=== PATIENT | female | born 1945 | race Caucasian/White ===

== ENCOUNTER 2020-02-27 11:51 | Emergency (ER) | payer OTHER, MEDICARE, SELFPAY ==
--- NOTE | ~2020-02-27 | XR_ITS ---
EXAMINATION: [id number] INDICATION: Right-sided chest pain after fall TECHNIQUE: A frontal view of the chest and 3 views of the right ribs were obtained. COMPARISON: None FINDINGS: A calcified nodule of the right lung bases consistent with old granulomatous disease. The l ungs are free of acute opacities. There is no pleural effusion or pneumothorax. The cardiomediastinal silhouette is normal. No displaced rib fracture is identified. Cholecystectomy clips are noted. IMPRESSION: 1. No acute cardiopulmonary abnormality or evidence of displaced rib fracture. Reviewed, dictated and finalized at location A.
[2020-02-27 12:05] VITALS: BP 142/59; PULSE 101; RESP 16; TEMP 36.8; O2SAT 98
--- NOTE | 2020-02-27 12:17 | ED.BACK ---
HPI - Back Pain/Injury General Chief Complaint: Back Pain/Injury Stated Complaint: back pain fell Time Seen by Provider: 02/27/20 12:10 Source: patient Mode of arrival: ambulatory Limitations: no limitations History of Present Illness HPI Narrative: Marilynn Barker is a 74 yo female with a PMH of diabetes and high blood pressure came to express care after a fall in [employer] parking lot where she landed on her right thoracic back and hip. Able to walk on right leg but complaining of pain on inspiration on the right posterior thorax. No real pinpoint tenderness; denies hitting head, denies nausea vomiting, visual change Related Data Home Medications Medication Instructions Recorded Confirmed amlodipine [Norvasc] 10 mg PO DAILY 02/27/20 02/27/20 aspirin [Aspirin Low Dose] 81 mg PO DAILY 02/27/20 02/27/20 canagliflozin [Invokana] 300 mg PO DAILY 02/27/20 02/27/20 glipizide 10 mg PO DAILY 02/27/20 02/27/20 hydralazine 100 mg PO DAILY 02/27/20 02/27/20 indapamide 2.5 mg PO DAILY 02/27/20 02/27/20 levothyroxine 75 mcg PO DAILY 02/27/20 02/27/20 lovastatin 10 mg PO DAILY 02/27/20 02/27/20 metformin [Glucophage XR] 500 mg PO DAILY 02/27/20 02/27/20 potassium chloride [Klor-Con M20] 20 meq PO DAILY 02/27/20 02/27/20 Allergies Allergy/AdvReac Type Severity Reaction Status Date / Time Penicillins Allergy Rash Verified 02/27/20 12:15 Review of Systems Review of Systems: Narrative: CONSTITUTIONAL: Denies fever, chills, sweats. EYES: Denies visual changes, redness, discharge. ENT: Denies rhinorrhea, congestion, sore throat, otalgia. CARDIOVASCULAR: Denies chest pain, palpitations, edema. RESPIRATORY: Denies dyspnea, wheezing, cough GASTROINTESTINAL: Denies abdominal pain, nausea, vomiting, diarrhea. GENITOURINARY: Denies dysuria, hematuria, abnormal discharge SKIN: Denies rash or itching. NEUROLOGIC: Denies numbness, or focal weakness. PSYCHIATRIC: Denies anxiety or depression. Perithoracic area on back is painful on inspiration PMFSH Past Medical History Medical History Diabetes Hypertension Family History Family History Other Alzheimer disease Brain cancer Social History Social History (Updated 02/27/20 @ 12:25 by Carole Da Silva CNP) Smoking status: Former smoker Alcohol intake: current Gender identity (if verbalized by the patient): Female Comments At time of signature, I agree with nursing past medical, surgical, social and family history. There is no relevant family history pertinent to the presenting complaint. Exam Narrative: Exam Narrative: GENERAL: This is a well-nourished, well-developed patient, in mild distress. HEAD: normocephalic, traumatic. EYES: Sclera clear/white. Vision is grossly intact. EARS: External ears normal, auditory canals clear and without drainage, TMs normal without perforation. Hearing grossly intact. NOSE: External nose normal without nasal discharge, nares without redness, no rhinorrhea. THROAT: Mucous membranes moist, NECK: Neck supple, non-tender CARDIOVASCULAR: Regular rate and rhythm without murmurs, gallops, or rubs. RESPIRATORY: Clear to auscultation. Breath sounds equal bilaterally. No wheezes, rales, or rhonchi. GASTROINTESTINAL: Abdomen soft, SKIN: warm, intact with no suspicious lesions or rash, good texture and turgor. NEURO: awake, alert, and oriented to person, place and time. There were no obvious focal neurologic abnormalities. Steady gait EXTREMITIES: Normal range of motion. BACK: Right thoracic tender without deformity Course Course Emergency Course: X-ray chest-results showed no acute cardiopulmonary abnormality or evidence of displaced rib fracture Walking without difficulty so deferred x-ray of right hip Patient started on limited number of Tylenol 3 and baclofen 5 mg 3 times daily as needed as needed Follow-up with PCP Vital Signs
== END 2020-02-27 13:05 | disposition home or self-care (01) ==
PROVIDERS: Emergency Provider Nurse Practitioner; PCP Internal Medicine
DX: S70.01XA Contusion of right hip, initial encounter (principal); W19.XXXA Unspecified fall, initial encounter; Z87.891 Personal history of nicotine dependence; E11.9 Type 2 diabetes mellitus without complications; I10 Essential (primary) hypertension
CPT/HCPCS: 71101; 99213; G0463

== ENCOUNTER 2022-06-23 08:17 | Outpatient (RCR) | payer MEDICARE, SELFPAY ==
--- NOTE | 2022-06-23 09:42 | PTOPEVAL1 ---
Assessment and note entered by Lindsay Zhao PT Evaluation Information Assessment Status Evaluation Diagnosis lymphedema Subjective Information pt is to have surgery July 14--R breast lumpectomy and axillary dissection; Reported Pain Level Pain Score Self Report No pain reported Assessment PT Clinical Summary Marilynn has the diagnosis of lymphedema; she is to have R breast lumpectomy and axillary dissection on July 14 and education was provided pre-op. Discussion and education to pt on: basic lymphedema, skin precautions, monitor for swelling ; sleep positions, position of UE--support with pillow; issued handouts for lymphedema and UE precautions; Home exercise program: shoulder flexion and abduction < 90', elbow flexion/extension, wrist flexion/extension, open/close fingers and posterior shoulder circles--pt performed 10 reps without any issues; instructed to perform 2x/day 3 reps of shoulder and 5-10 reps of others; performed deep breathing, with abdominal movement, not chest motion- physical cues with her hand on her stomach and chest--to perform 5x at home also; post op--decrease use of R shoulder, no lifting and any other precautions per her dr post op; use of ice PRN; after incision is healed, can do gentle massage over breast or shoulder; post op- if any issues with shoulder or swelling, she would require a new order from her dr to continue therapy; pt asked good questions and voiced understanding of the education. Issued PT name and number for her to call if any additional questions. Pt is on HOLD until post op and additional orders received Plan of Care PT Services Indicated Yes Treatment Frequency and pt is on HOLD until post op orders received to Duration continue PT treatment These treatments will address the objective and functional deficits as defined above. The patient will be advanced safely and appropriately in order for the patient to progress towards his/her prior level of function. Additional exercises will be introduced and as well as a comprehensive home exercise program upon discharge, if needed, ?to ensure carryover of functional gains achieved in the clinic. This treatment plan has been reviewed and agreement upon by the patient.
--- NOTE | 2022-09-02 15:07 | PCPTNOTE ---
PHYSICAL THERAPY DISCHARGE 09-02-22 Attending Provider: Laith Ortiz MD Patient:Marilynn Barker Date of :1945 Mrs. Barker had the PT evaluation on June 23, prior to surgery for education. Post op, she did not return for any additional therapy. Therefore, she will be discharged at this time. Thank you for referring this patient to [facility].
== END 2022-09-06 11:53 | disposition home or self-care (01) ==
LOC: ANHPT 08:17
PROVIDERS: PCP Internal Medicine
DX: C50.211 Malignant neoplasm of upper-inner quadrant of right female breast (principal); Z17.0 Estrogen receptor positive status [ER+]
CPT/HCPCS: 97161

== ENCOUNTER 2022-12-01 11:24 | Outpatient (CLI) | payer MEDICARE, SELFPAY ==
[2022-12-01 11:36] LABS: Basophils Percent Auto 0.5 % (0.2-1.2); Eosinophils Absolute Auto 0.2 K/mm3 (0-0.3); Eosinophils Percent Auto 1.8 % (0-4.4); Hematocrit 38.7 % (37.0-47.0); Hemoglobin 12.5 g/dL (12.0-15.0); Immature Granulocyte Absolute 0.03 K/mm3 (0.00-0.031); Immature Granulocyte Percent A 0.4 % (0-0.5); Lymphocytes Absolute Auto 1.39 K/mm3 (0.9-3.2); Lymphocytes Percent Auto 16.8 % (18.3-44.2); Mean Corpuscular HGB Conc 32.3 g/dl (32-36); Mean Corpuscular Volume 89.8 fl (80-100); Mean Platelet Volume 10.3 fl (7.4-10.4); Monocytes Absolute Auto 0.6 K/mm3 (0.1-0.6); Monocytes Percent Auto 7.1 % (2.6-8.5); Neutrophils Absolute Auto 6.1 K/mm3 (1.3-6.7); Neutrophils Percent Auto 73.4 % (45.5-73.1); Platelet Count Result 299 k/mm3 (150-375); Red Blood Count 4.31 M/mm3 (4.2-5.4); Red Cell Distribution Width 14.1 % (11.5-14.5); White Blood Count 8.3 K/mm3 (4.5-10.0)
[2022-12-01 11:54] LABS: Alanine Aminotransferase 16 U/L (6-35); Albumin Level 4.3 g/dL (3.5-5.1); Alkaline Phosphatase 51 U/L (38-126); Anion Gap 7 mmol/L (8-16); Aspartate Amino Transferase 31 U/L (14-36); Bilirubin,Total 1.6 mg/dL (0.2-1.3); Blood Urea Nitrogen 17 mg/dL (7-17); Calcium 9.9 mg/dL (8.4-10.2); Carbon Dioxide 33 mmol/L (22-30); Chloride 102 mmol/L (98-107); Estimated Glomerular Filt Rate > 60; Glucose 157 mg/dL (65-110); Potassium 3.5 mmol/L (3.4-5.0); Sodium 142 mmol/L (137-145)
[2022-12-06 12:15] LABS: CA 15-3 <5 U/mL (<32)
== END 2022-12-01 11:25 | disposition home or self-care (01) ==
LOC: ANHLAB 11:25
PROVIDERS: PCP Internal Medicine; Visit Provider Internal Medicine Hematology & Oncology
DX: C50.911 Malignant neoplasm of unspecified site of right female breast (principal); Z17.0 Estrogen receptor positive status [ER+]
CPT/HCPCS: 36415; 80053; 85025; 86300

== ENCOUNTER 2023-03-21 11:11 | Outpatient (CLI) | payer MEDICARE, SELFPAY ==
[2023-03-21 11:26] LABS: Basophils Absolute Auto 0.1 K/mm3 (0.0-0.1); Basophils Percent Auto 0.6 % (0.2-1.2); Eosinophils Absolute Auto 0.1 K/mm3 (0-0.3); Eosinophils Percent Auto 0.8 % (0-4.4); Hematocrit 37.5 % (37.0-47.0); Immature Granulocyte Absolute 0.05 K/mm3 (0.00-0.031); Immature Granulocyte Percent A 0.6 % (0-0.5); Lymphocytes Percent Auto 18.2 % (18.3-44.2); Mean Corpuscular Hemoglobin 29.4 pg (26-34); Mean Corpuscular Volume 91.9 fl (80-100); Mean Platelet Volume 10.3 fl (7.4-10.4); Monocytes Absolute Auto 0.8 K/mm3 (0.1-0.6); Monocytes Percent Auto 8.6 % (2.6-8.5); Neutrophils Absolute Auto 6.3 K/mm3 (1.3-6.7); Neutrophils Percent Auto 71.2 % (45.5-73.1); Platelet Count Result 293 k/mm3 (150-375); Red Blood Count 4.08 M/mm3 (4.2-5.4); Red Cell Distribution Width 13.2 % (11.5-14.5); White Blood Count 8.8 K/mm3 (4.5-10.0)
[2023-03-21 20:45] LABS: Alanine Aminotransferase 20 U/L (6-35); Albumin Level 4.2 g/dL (3.5-5.1); Alkaline Phosphatase 45 U/L (38-126); Anion Gap 8 mmol/L (8-16); Aspartate Amino Transferase 21 U/L (14-36); Blood Urea Nitrogen 16 mg/dL (7-17); Calcium 9.9 mg/dL (8.4-10.2); Carbon Dioxide 32 mmol/L (22-30); Chloride 99 mmol/L (98-107); Estimated Glomerular Filt Rate > 60; Glucose 105 mg/dL (65-110); Potassium 3.3 mmol/L (3.4-5.0); Sodium 139 mmol/L (137-145)
[2023-03-24 06:07] LABS: CA 15-3 6 U/mL (<32)
== END 2023-03-21 11:12 | disposition home or self-care (01) ==
LOC: ANHLAB 11:13
PROVIDERS: PCP Internal Medicine; Visit Provider Internal Medicine Hematology & Oncology
DX: C50.911 Malignant neoplasm of unspecified site of right female breast (principal); Z17.0 Estrogen receptor positive status [ER+]
CPT/HCPCS: 36415; 80053; 85025; 86300

== ENCOUNTER 2023-06-23 12:01 | Outpatient (CLI) | payer MEDICARE, SELFPAY ==
[2023-06-23 12:16] LABS: Basophils Percent Auto 0.5 % (0.2-1.2); Eosinophils Absolute Auto 0.1 K/mm3 (0-0.3); Eosinophils Percent Auto 1.3 % (0-4.4); Hematocrit 37.6 % (37.0-47.0); Immature Granulocyte Absolute 0.02 K/mm3 (0.00-0.031); Immature Granulocyte Percent A 0.3 % (0-0.5); Lymphocytes Absolute Auto 1.54 K/mm3 (0.9-3.2); Lymphocytes Percent Auto 20.3 % (18.3-44.2); Mean Corpuscular HGB Conc 31.9 g/dl (32-36); Mean Corpuscular Hemoglobin 29.3 pg (26-34); Mean Corpuscular Volume 91.9 fl (80-100); Mean Platelet Volume 10.1 fl (7.4-10.4); Monocytes Absolute Auto 0.6 K/mm3 (0.1-0.6); Monocytes Percent Auto 7.4 % (2.6-8.5); Neutrophils Absolute Auto 5.3 K/mm3 (1.3-6.7); Neutrophils Percent Auto 70.2 % (45.5-73.1); Platelet Count Result 287 k/mm3 (150-375); Red Blood Count 4.09 M/mm3 (4.2-5.4); Red Cell Distribution Width 13.7 % (11.5-14.5); White Blood Count 7.6 K/mm3 (4.5-10.0)
[2023-06-23 16:31] LABS: Alanine Aminotransferase 12 U/L (6-35); Albumin Level 4.3 g/dL (3.5-5.1); Alkaline Phosphatase 59 U/L (38-126); Anion Gap 10 mmol/L (8-16); Aspartate Amino Transferase 21 U/L (14-36); Bilirubin,Total 1.5 mg/dL (0.2-1.3); Blood Urea Nitrogen 14 mg/dL (7-17); Carbon Dioxide 30 mmol/L (22-30); Chloride 102 mmol/L (98-107); Estimated Glomerular Filt Rate > 60; Glucose 151 mg/dL (65-110); Potassium 3.4 mmol/L (3.4-5.0); Sodium 142 mmol/L (137-145)
[2023-06-28 14:53] LABS: CA 15-3 5 U/mL (<32)
== END 2023-06-23 12:02 | disposition home or self-care (01) ==
LOC: ANHLAB 12:03
PROVIDERS: PCP Internal Medicine; Visit Provider Internal Medicine Hematology & Oncology
DX: C50.911 Malignant neoplasm of unspecified site of right female breast (principal); Z17.0 Estrogen receptor positive status [ER+]
CPT/HCPCS: 36415; 80053; 85025; 86300

== ENCOUNTER 2023-10-12 12:31 | Outpatient (CLI) | payer MEDICARE, SELFPAY ==
[2023-10-12 12:45] LABS: Basophils Percent Auto 0.5 % (0.2-1.2); Eosinophils Absolute Auto 0.1 K/mm3 (0-0.3); Eosinophils Percent Auto 1.8 % (0-4.4); Hematocrit 37.5 % (37.0-47.0); Hemoglobin 11.9 g/dL (12.0-15.0); Immature Granulocyte Absolute 0.02 K/mm3 (0.00-0.031); Immature Granulocyte Percent A 0.3 % (0-0.5); Lymphocytes Absolute Auto 1.79 K/mm3 (0.9-3.2); Lymphocytes Percent Auto 23.6 % (18.3-44.2); Mean Corpuscular HGB Conc 31.7 g/dl (32-36); Mean Corpuscular Hemoglobin 28.9 pg (26-34); Mean Platelet Volume 10.8 fl (7.4-10.4); Monocytes Absolute Auto 0.6 K/mm3 (0.1-0.6); Monocytes Percent Auto 7.8 % (2.6-8.5); Platelet Count Result 289 k/mm3 (150-375); Red Blood Count 4.12 M/mm3 (4.2-5.4); Red Cell Distribution Width 13.8 % (11.5-14.5); White Blood Count 7.6 K/mm3 (4.5-10.0)
[2023-10-12 16:54] LABS: Alanine Aminotransferase 12 U/L (6-35); Albumin Level 4.2 g/dL (3.5-5.1); Alkaline Phosphatase 59 U/L (38-126); Anion Gap 8 mmol/L (4-12); Aspartate Amino Transferase 20 U/L (14-36); Bilirubin,Total 1.3 mg/dL (0.2-1.3); Blood Urea Nitrogen 12 mg/dL (7-17); Calcium 10.1 mg/dL (8.4-10.2); Carbon Dioxide 30 mmol/L (22-30); Chloride 101 mmol/L (98-107); Estimated Glomerular Filt Rate > 60; Glucose 142 mg/dL (65-110); Potassium 3.3 mmol/L (3.4-5.0); Sodium 139 mmol/L (137-145)
[2023-10-16 14:01] LABS: CA 15-3 <5 U/mL (<32)
== END 2023-10-12 12:32 | disposition home or self-care (01) ==
LOC: ANHLAB 12:32
PROVIDERS: Nurse Practitioner Family; PCP Internal Medicine; Visit Provider Internal Medicine Hematology & Oncology
DX: C50.911 Malignant neoplasm of unspecified site of right female breast (principal); Z17.0 Estrogen receptor positive status [ER+]
CPT/HCPCS: 36415; 80053; 85025; 86300

== ENCOUNTER 2023-10-19 10:36 | Outpatient (CLI) | payer MEDICARE, SELFPAY ==
[2023-10-19 12:01] LABS: Iron 73 ug/dL (37-170)
[2023-10-19 12:14] LABS: Percent Iron Saturation 21 % (20-50)
[2023-10-19 12:38] LABS: Ferritin 9.65 ng/mL (11.1-264)
[2023-10-19 13:15] LABS: Folic Acid > 20.0 ng/mL (2.76->20)
== END 2023-10-19 10:37 | disposition home or self-care (01) ==
LOC: ANHLAB 10:38
PROVIDERS: Nurse Practitioner Family; PCP Internal Medicine; Visit Provider Internal Medicine Hematology & Oncology
DX: D50.8 Other iron deficiency anemias (principal)
CPT/HCPCS: 36415; 82607; 82728; 82746; 83540; 83550

== ENCOUNTER 2023-12-26 10:08 | Outpatient (CLI) | payer MEDICARE, SELFPAY ==
[2023-12-26 10:29] LABS: Basophils Percent Auto 0.5 % (0.2-1.2); Eosinophils Absolute Auto 0.1 K/mm3 (0-0.3); Eosinophils Percent Auto 1.1 % (0-4.4); Hematocrit 34.9 % (37.0-47.0); Hemoglobin 11.3 g/dL (12.0-15.0); Immature Granulocyte Absolute 0.02 K/mm3 (0.00-0.031); Immature Granulocyte Percent A 0.3 % (0-0.5); Lymphocytes Absolute Auto 1.34 K/mm3 (0.9-3.2); Lymphocytes Percent Auto 16.8 % (18.3-44.2); Mean Corpuscular HGB Conc 32.4 g/dl (32-36); Mean Corpuscular Hemoglobin 29.3 pg (26-34); Mean Corpuscular Volume 90.4 fl (80-100); Mean Platelet Volume 10.3 fl (7.4-10.4); Monocytes Absolute Auto 0.6 K/mm3 (0.1-0.6); Monocytes Percent Auto 7.7 % (2.6-8.5); Neutrophils Absolute Auto 5.9 K/mm3 (1.3-6.7); Neutrophils Percent Auto 73.6 % (45.5-73.1); Platelet Count Result 286 k/mm3 (150-375); Red Blood Count 3.86 M/mm3 (4.2-5.4); Red Cell Distribution Width 14.1 % (11.5-14.5)
[2023-12-26 13:30] LABS: Folic Acid > 20.0 ng/mL (2.76->20)
[2023-12-26 14:21] LABS: Iron 91 ug/dL (37-170)
[2023-12-26 14:32] LABS: Percent Iron Saturation 26 % (20-50)
== END 2023-12-26 10:09 | disposition home or self-care (01) ==
LOC: ANHLAB 10:10
PROVIDERS: Nurse Practitioner Family; PCP Internal Medicine; Visit Provider Internal Medicine Hematology & Oncology
DX: D50.8 Other iron deficiency anemias (principal)
CPT/HCPCS: 36415; 82607; 82728; 82746; 83540; 83550; 85025

== ENCOUNTER 2024-04-18 09:38 | Outpatient (CLI) | payer MEDICARE, SELFPAY ==
[2024-04-18 09:54] LABS: Basophils Absolute Auto 0.1 K/mm3 (0.0-0.1); Eosinophils Absolute Auto 0.2 K/mm3 (0-0.3); Eosinophils Percent Auto 2.7 % (0-4.4); Hematocrit 35.8 % (37.0-47.0); Hemoglobin 11.4 g/dL (12.0-15.0); Immature Granulocyte Absolute 0.02 K/mm3 (0.00-0.031); Immature Granulocyte Percent A 0.3 % (0-0.5); Lymphocytes Absolute Auto 1.49 K/mm3 (0.9-3.2); Lymphocytes Percent Auto 21.4 % (18.3-44.2); Mean Corpuscular HGB Conc 31.8 g/dl (32-36); Mean Corpuscular Hemoglobin 29.4 pg (26-34); Mean Corpuscular Volume 92.3 fl (80-100); Mean Platelet Volume 10.3 fl (7.4-10.4); Monocytes Absolute Auto 0.5 K/mm3 (0.1-0.6); Monocytes Percent Auto 7.6 % (2.6-8.5); Neutrophils Absolute Auto 4.7 K/mm3 (1.3-6.7); Platelet Count Result 283 k/mm3 (150-375); Red Blood Count 3.88 M/mm3 (4.2-5.4); Red Cell Distribution Width 14.3 % (11.5-14.5)
[2024-04-18 10:48] LABS: Anion Gap 9 mmol/L (4-12); Blood Urea Nitrogen 19 mg/dL (7-17); Calcium 9.9 mg/dL (8.4-10.2); Carbon Dioxide 32 mmol/L (22-30); Chloride 100 mmol/L (98-107); Estimated Glomerular Filt Rate > 60; Glucose 136 mg/dL (65-110); Potassium 3.3 mmol/L (3.4-5.0); Sodium 141 mmol/L (137-145)
[2024-04-18 11:56] LABS: Folic Acid > 20.0 ng/mL (2.76->20)
[2024-04-18 11:59] LABS: Iron 34 ug/dL (37-170)
[2024-04-18 12:09] LABS: Percent Iron Saturation 10 % (20-50)
[2024-04-19 10:44] LABS: CA 15-3 <5 U/mL (<32)
== END 2024-04-18 09:39 | disposition home or self-care (01) ==
LOC: ANHLAB 09:40
PROVIDERS: Nurse Practitioner Family; PCP Internal Medicine; Visit Provider Internal Medicine Hematology & Oncology
DX: D50.8 Other iron deficiency anemias (principal); C50.911 Malignant neoplasm of unspecified site of right female breast; Z17.0 Estrogen receptor positive status [ER+]
CPT/HCPCS: 36415; 80048; 82607; 82728; 82746; 83540; 83550; 85025; 86300

== ENCOUNTER 2024-10-10 13:25 | Outpatient (CLI) | payer MEDICARE, SELFPAY ==
[2024-10-10 13:37] LABS: Basophils Absolute Auto 0.1 K/mm3 (0.0-0.1); Basophils Percent Auto 0.7 % (0.2-1.2); Eosinophils Absolute Auto 0.1 K/mm3 (0-0.3); Eosinophils Percent Auto 1.5 % (0-4.4); Hematocrit 38.3 % (37.0-47.0); Hemoglobin 12.3 g/dL (12.0-15.0); Immature Granulocyte Absolute 0.03 K/mm3 (0.00-0.031); Immature Granulocyte Percent A 0.3 % (0-0.5); Lymphocytes Absolute Auto 1.69 K/mm3 (0.9-3.2); Lymphocytes Percent Auto 19.1 % (18.3-44.2); Mean Corpuscular HGB Conc 32.1 g/dl (32-36); Mean Corpuscular Hemoglobin 29.7 pg (26-34); Mean Corpuscular Volume 92.5 fl (80-100); Mean Platelet Volume 10.7 fl (7.4-10.4); Monocytes Absolute Auto 0.6 K/mm3 (0.1-0.6); Monocytes Percent Auto 6.7 % (2.6-8.5); Neutrophils Absolute Auto 6.4 K/mm3 (1.3-6.7); Neutrophils Percent Auto 71.7 % (45.5-73.1); Platelet Count Result 303 k/mm3 (150-375); Red Blood Count 4.14 M/mm3 (4.2-5.4); Red Cell Distribution Width 14.1 % (11.5-14.5); White Blood Count 8.9 K/mm3 (4.5-10.0)
--- OUTSIDE RECORDS SUMMARY | 2024-10-10 13:46 | XMS_ITS | Encounter Summary ---
Author Organization [facility] Care Team Providers Care Teacher Public Health Name Role Phone Floresita Samaniego MD Primary Care Provider + [phone] Simi Uriarte LPN Unavailable [phone] Nathan Waldron MD Unavailable [phone] Flavio Sesay MD Unavailable [phone] Saulo Narayan OD Unavailable + [phone] Darci Connolly DPM Unavailable [phone] Jamie Gamboa MD Unavailable [phone] Francisco Candelario MD PhD Unavailable [phone] Laith Ortiz MD Unavailable [phone] Jamie Gamboa MD Unavailable [phone] Francisco Gtz MD Unavailable [phone] Laith Ortiz MD Unavailable [phone] Encounter Details Date Type Department Care Team (Latest Contact Info) Description 06/09/2016 Orders Only [facility] CLINCONV ProviderAsim MD [address] [place] [address] Social History Tobacco Use Types Packs/Day Years Used Date Smoking Tobacco: Never Assessed Alcohol Use Standard Drinks/Week Comments Yes 0 (1 standard drink = 0.6 oz pur e alcohol) Comments Unknown Sex and Gender Information Value Date Recorded Sex Assigned at Not on file 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 us Historical Provider Final Res ult documented in this encounter Visit Diagnoses Not on filedocumented in this encounter Additional Health Concerns Infection Onset Date Last Indicated Resolved Time COVID: Suspected 10/19/2021 10/19/2021 10/19/2021 5:51 PM CDT Influenza, adult 10/19/2021 10/19/2021 10/26/2021 3:05 AM CDT documented as of this encounter Care Teams Teacher Public Health Relationship Specialty Start Date End Date Floresita Samaniego MD [address] [place] [address] PCP - General 04/07/14 Simi Uriarte, NICOLE [address] [place] [address] [address] [place] [address] Police Captain 04/10/18 04/10/18 Nathan Waldron MD [address] [facility] [address] [place] [address] Consulting Physician Obstetrics and Gynecology 02/12/19 10/23/22 Flavio Sesay MD [address] [facility] [address] [place] [address] Referring Physician Gastroenterology 02/12/19 05/12/24 Saulo Narayan CHAO [address] [facility] [place] [address] Optometry 08/08/19 Darci Connolly DPM [address] [place] [address] Referring Physician Podiatry 06/16/20 Jamie Gamboa MD [address] DEPT [place] [address] Consulting Physician Radiation Oncology 06/08/22 Francisco Candelario MD PhD [address] [place] [address] Medical Oncologist/Hematologi st Hematology and Oncology 06/08/22 07/25/22 Laith Ortiz MD [address] [address] Consulting Physician Surgical Oncology 06/27/22 Jamie Gamboa MD [address] [place] [address] Consulting Physician Radiation Oncology 06/27/22 Francisco Gtz MD [address] [place] [address] Referring Physician Hematology 07/22/22 Laith Ortiz MD [address] [address] Consulting Physician Surgical Oncology 05/03/23 4 documented as of this encounter
--- OUTSIDE RECORDS SUMMARY | 2024-10-10 13:47 | XMS_ITS | Encounter Summary ---
Author Organization [facility] Address [address] [place] [address] Care Team Providers Care Automatic Glove Former Name Role Phone Floresita Samaniego MD Primary Care Provider + [phone] Flavio Sesay MD Unavailable [phone] Saulo Narayan OD Unavailable + [phone] Darci Connolly DPCam Unavailable [phone] Laith Ortiz MD Unavailable [phone] Francisco Gtz MD Unavailable [phone] Laith Ortiz MD Unavailable [phone] Encounter Details Date Type Department Care Team (Late st Contact Info) Description 10/12/2023 Orders Only [facility] [address] [place] [address] Scanning, Provider Social History Tobacco Use Types Packs/Day Years Used Date Smoking Tobacco: Never Smokeless Tobacco: Never Alcohol Use Standard Drinks/Week Comments Yes 0 (1 standard drink = 0.6 oz pur e alcohol) AUDIT-C Answer Date Recorded Frequency of Alcohol Consumption Not on file 05/03/2023 Q2: How many drinks containi ng alcohol do you have on a typical day when you are drinking? 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 Gender Identity Not on file Sexual Orientation Not on file documented as of this encounter Plan of Treatment Not on file documented as of this encounter Procedures Procedure Name Priority Date/Time Associated Diagnosis Comments SCAN - LABS 10/12/2023 documented in this encounter Results * SCAN - LABS (10/12/2023) us Provider Scanning Final Result documented in this encounter Visit Diagnoses Not on filedocumented in this encounter Care Teams Automatic Glove Former Relationship Specialty Start Date End Date Floresita Samaniego MD [address] [place] [address] PCP - General 04/07/14 Flavio Sesay MD [address] [place] [address] Referring Physician Gastroenterology 02/12/19 05/12/24 Saulo Narayan OD [address] [place] [id number] Optometry 08/08/19 Darci Connolly DPM [address] [place] [address] Referring Physician Podiatry 06/16/20 Laith Ortiz MD [address] [facility] [address] [place] [address] Consulting Physician Surgical Oncology 06/27/22 Francisco Gtz MD [address] [facility] [address] [place] [address] Referring Physician Hematology 07/22/22 Laith Ortiz MD [address] [place] [address] Consulting Physician Surgical Oncology 05/03/23 4 documented as of this encounter
--- OUTSIDE RECORDS SUMMARY | 2024-10-10 13:47 | XMS_ITS | Clinical Summary ---
Author Organization [facility] Address [address] [place] [address] Care Team Providers Care Slot Machine Floor Person Name Role Phone Unavailable Primary Care Provider Unavailabl e Allergies Active Allergy Reactions Criticality Noted Date Comments Atorvastatin Muscle Pain Medium 08/22/2022 Erythromycin Nausea and Vomiting, Other (See Comments) Low 11/12/2020 Bad stomach pain Penicillins Rash Medium 11/12/2020 Medications Cholecalciferol , Vitamin D3, 50 mcg (2,000 unit) Capsule 2,000 Units daily. Active glipiZIDE (GLUCOTROL) 5 mg tablet Take 5 mg by mouth daily. Active levothyroxine 75 mcg tablet Take 1 Tablet by mouth daily. 3 Active lovastatin (MEVACOR) 10 mg tablet Take 10 mg by mouth daily at bedtime. Active metFORMIN (GLUMETZA) 500 mg Extended Release 24 hour tablet Take 1,500 mg by mouth. Active dulaglutide (Trulicity) 4.5 mg/0.5 mL injection Inject 4.5 mg by subcutaneous injection. Active MULTIVITAMIN ORAL Take by mouth. Activ e hydrALAZINE (APRESOLINE) 100 mg Tablet tablet Take 100 mg by mouth. Active amLODIPine (NORVASC) 10 mg tablet Take 10 mg by mouth daily. 4 Active anastrozole (ARIMIDEX) 1 mg tablet TAKE 1 TABLET EVERY DAY 90 Tablet 3 5 Active Active Problems Problem Noted Date Diagnosed Date Malignant neoplasm metastatic to breast 09/08/19 23 Encounters Date Type Department Care Team Description 08/22/2024 Refill [facility] Oncology and Hematology - [facility] [address] [facility] [address] [place] [address] Francisco Gtz MD 08/01/2024 External Device Data STL ABSTRACTION Provider, Abstract 07/31/2024 External Device Data STL ABSTRACTION Provider, Abstract 07/30/2024 External Device Data STL ABSTRACTION Provider, Abstract from Last 3 Months Family History Medical History Relation Name Comments Diabetes Brother Diabetes Daughter Brain Cancer Father Diabetes Father Diabetes Half-Brother Alzheimer's Disease Mother No Known Problems Sister No Known Problems Son Relation Name Status Comments Brother Alive Daughter Alive Father Half-Brother Mother Sister Alive Son Alive Social History Tobacco Use Types Packs/Day Years Used Date Smoking Tobacco: Never Smokeless Tobacco: Never Alcohol Use Standard Drinks/Week Comments Yes 0 (1 standard drink = 0.6 oz pur e alcohol) socially Comments Unknown Sex and Gender Information Value Date Recorded Sex Assigned at Not on file Legal Sex Female 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 Gender Identity Not on file Sexual Orientation Not on file Last Filed Vital Signs Vital Sign Reading Time Taken Comments Blood Pressure 156/88 04/25/2024 1:05 PM CDT man ual Pulse 103 04/25/2024 12:59 PM CDT Temperature 36.2 C (97.2 F) 04/25/2024 12:59 PM CDT Respiratory Rate 15 04/25/2024 12:59 PM CDT Oxygen Saturation 95% 04/25/2024 12:59 PM CDT Inhaled Oxygen Concentration - - Weight 75.5 kg (166 lb 6.4 oz) 04/25/2024 12:59 PM CDT Height 162.6 cm (5' 4 ) 08/22/2022 1:13 PM FRAMING MILL OPERATOR HELPER Body Mass Index 28.56 08/22/2022 1:13 PM FRAMING MILL OPERATOR HELPER Plan of Treatment Upcoming Encounters Date Type Department Care Team (Late st Contact Info) Description 10/17/2024 1:00 PM CDT Office Visit [facility] Oncology and Hematology - Ady [address] [facility] [address] [place] [address] Francisco Gtz MD [address] [facility] [address] [place] [address] Health Maintenance Due Date Last Done Comments DIABETES ANNUAL RETINAL EXAM 1963 DIABETES MICROALBUMIN ANNUAL SCREEN 1963 LDL CHOLESTEROL ANNUAL 1963 DTAP/TDAP/TD VACCINES (1 - Tdap) 1964 ZOSTER VACCINE (1 of 2) 01/17/2011 11/22/2010 RSV VACCINE (60+ or ) (1 - 1-dose 75+ series) 2020 COVID-19 Vaccine (3 - Pfizer risk series) 10/30/2020 10/02/2020, 09/11/2020 INFLUENZA VACCINE (#1) 2024 3, 06/29/2022, 04/12/2021, Additional history exists DIABETES ANNUAL FOOT EXAM 05/03/2024 05/03/2023 Medicare [place]) Preventative Visit/Annual Wellness Visit 07/10/2024 DIABETES HBA1C Q 6 MONTHS 08/08/20242023, 05/03/2023, 01/05/2023, Additional history exists PNEUMOCOCCAL VACCINE 50+ YEARS Completed 0 03/02/2020, 02/07/2015, 10/07/2010 COLORECTAL SCREENING Discontinued 11/19/2020 Colorectal Cancer Screening Discontinued OSTEOPOROSIS SCREENING Completed 4, 10/26/2023, 02/11/2020, Additional history exists FIT-DNA Q 3 years Discontinued FIT/FOBT Q 1 year Discontinued Flex Sig/CT Colonography Q 5 [place] [address] [employer] [facility]
--- OUTSIDE RECORDS SUMMARY | 2024-10-10 13:47 | XMS_ITS ---
[place] [address] Discharge Disposition: Discharge to home or self care 08/19/2024 9:40 AM SWIMMING POOL SERVICEPERSON - 08/19/2024 11:59 PM SWIMMING POOL SERVICEPERSON Hospital Encounter [facility] [address] [place] [id number] Discharge Disposition: Discharge to home or self care 08/19/2024 9:40 AM SWIMMING POOL SERVICEPERSON - 08/19/2024 11:59 PM SWIMMING POOL SERVICEPERSON Hospital Encounter [facility] [address] [place] [id number] Irregular heart beat; Systolic murmur; Dyslipidemia associated with type 2 diabetes mellitus (CMS/HCC) (HCC); Essential hypertension; Atrial premature depolarization; Coronary artery calcification seen on CT scan; Exertional dyspnea; Abnormal EKG; Pulmonary hypertension (HCC) Discharge Disposition: Discharge to home or self care 08/15/2024 Telephone [facility] [address] [place] [phone] Floresita Samaniego MD lab orders; Medical Question/Miscellaneou s from Last 3 Months Allergies Active Allergy Reactions Criticality Noted Date Comments Atorvastatin Muscle pain Medium Erythromycin Nausea & Vomiting Low Penicillins Rash Medium Medications folic acid/multivit-mi n/lutein (CENTRUM SILVER ORAL)Indications :Essential hypertension Take 1 tablet by mouth every morning Active cholecalciferol (VITAMIN D-3) 2,000 unit capsule 1 capsule (2,000 Units total) daily Active anastrozole (ARIMIDEX) 1 mg tablet Take 1 tablet (1 mg total) by mouth nightly Active Accu-Chek Guide Glucose Meter miscIndications: Type 2 diabetes mellitus with diabetic polyneuropathy, without long-term current use of insulin (HCC) USE DIRECTED 1 each 3 Active polyethylene glycol (MIRALAX) 17 gram/dose bulk powder Take 17 g by mouth daily as needed Active pen needle, diabetic 31 gauge x 5/16 needleIndication s:Type 2 diabetes mellitus with diabetic polyneuropathy, without long-term current use of insulin (HCC) Use to inject trulicity once weekly 100 each 1 3 Active vitamin [id number] acid 0.5-1 mg tablet Take 1 tablet by mouth every morning Active nystatin powderIndication s:Intertrigo Apply topically 2 (two) times a day 60 g 3 4 Active Additional Information Patient not taking.Reported on 09/04/2024 amLODIPine (NORVASC) 10 mg tablet Take 1 tablet (10 mg total) by mouth daily Active hydrALAZINE (APRESOLINE) 100 mg tabletIndication s:hypertension Take 1 tablet (100 mg total) by mouth 2 (two) times a day Active levothyroxine (SYNTHROID) 75 mcg tablet Take 1 tablet (75 mcg total) by mouth mangle tender cloth before breakfast Active metFORMIN XR (GLUCOPHAGE XR) 500 mg 24 hr tablet TAKE 2 TABLETS TWICE DAILY 360 tablet 3 4 Active iron bisgly,ps-FA-B-C #12-succ 65 mg-65 mg -1,000 mcg (24) tablet Take by mouth Active glipiZIDE XL (GLUCOTROL XL) 2.5 mg 24 hr tabletIndication s:type 2 diabetes mellitus Take 1 tablet (2.5 mg total) by mouth daily 90 tablet 1 4 05/13/20 25 Active dulaglutide (Trulicity) 4.5 mg/0.5 mL pen injector Inject 0.5 mL (4.5 mg total) under the skin every 7 days Fridays 6 mL 3 4 05/21/20 25 Active lovastatin (MEVACOR) 10 mg tablet TAKE 1 TABLET EVERY NIGHT 90 tablet 3 4 Active lancets (Accu-Chek Softclix Lancets) miscIndications: Type 2 diabetes mellitus with diabetic polyneuropathy, without long-term current use of insulin ([facility]) TEST TWO TIMES DAILY 200 each 1 4 Active blood glucose diagnostic (Accu-Chek Guide test strips) stripIndications :Type 2 diabetes mellitus with diabetic polyneuropathy, without long-term current use of insulin (HCC) TEST TWO TIMES DAILY 200 strip 1 4 Active magnesium oxide (MAG-OX) 250 mg (150.8 mg elemental) tabletIndication s:hypomagnesemia 1 tablet (250 mg total) daily Active aspirin 81 mg enteric coated tabletIndication s:Myocardial Reinfarction Prevention Take 1 tablet (81 mg total) by mouth daily 90 tablet 3 4 Active potassium chloride ER 10 mEq CR tabletIndication s:Low blood potassium TAKE 1 TABLET EVERY DAY 100 tablet 5 Active alcohol swabs (DropSafe Alcohol Prep Pads) pads, medicated USE TWICE DAILY DIRECTED. 200 each 3 5 Active Active Problems Problem Noted Date Diagnosed Date Chronic fatigue 09/04/2024 Atrial premature depolarization 07/01/2024 Coronary artery calcification seen on CT scan Exertional dyspnea 07/01/2024 Abnormal EKG 07/01/2024 Pulmonary hypertension 07/01/2024 Irregular heart beat 05/13/2024 Assessment & Plan (05/13/2024 5:30 PM SWIMMING POOL SERVICEPERSON): New finding today rule out AFib Reviewed EKG 10/2021 bigeminy and PACs Repeat EKG today to rule out Afib, might be why she is tired did not show any evidence of atrial fibrillation. Again the rhythm is sinus with frequent PACs, left atrial enlargement, nonspecific T-wave abnormalities but no T-wave inversions seen at this EKG compared to 2021. EKG October 19, 2021 read sinus tachycardia with PACs with aberrant conduction and bigeminy pattern. Heart rate was 110 beats per minute. Currently EKG shows heart rate of 88 beats per minute. Similar tracing as in 2021 but heart rate is much better and T-wave inversions in the lateral leads no longer seen. Will check potassium and magnesium levels TSH level is in range continue current dosage. Patient will need to get reestablished with a painter assistant. Will make referral. Essential hypertension 02/06/2024 Assessment & Plan (05/13/2024 11:09 AM SWIMMING POOL SERVICEPERSON): Bp stable Cont same regimen Ff low sodium diet Eat K rich foods Systolic murmur 02/06/2024 Intertrigo 11/08/2023 Overview (11/08/2023): under left breast, new and worsening. start rx nystatin powder daiy x 3 months at least Assessment & Plan (11/08/2023 2:05 PM CDT): under left breast, new and worsening. 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 Status post mastectomy right, no reconstruction. Dr. Ortiz surgeon and Dr. Gtz Oncology managing. No radiation therapy or chemotherapy needed. Continue on RN anastrozole therapy, tolerating. Stable Personal history of breast cancer 05/03/2023 Overview (05/03/2023): 05/2022 diagnosed Stage 2, 2 positive LNs S/p R mastectomy, no reconstruction, Dr Ortiz surgeon and Onc Dr Razo No radiation or chemo needed Malignant neoplasm metastatic to breast 09/08/19 23 S/P right mastectomy 07/26/2022 Assessment & Plan (10/24/2022 3:45 PM CDT): Sec to stage 2 breast cancer Cont on arimidex Malignant neoplasm of upper- inner quadrant of right breast in female, estrogen receptor positive 06/09/2022 Cancer Staging:Clinical:Stage IB(cT1c, cN1, cM0, G1, ER+, NJ+, HER2-) - Signed by Francisco Candelario MD PhD on 06/17/2022 Pathologic stage from 07/20/2022:Stage IA(pT1c(2), pN1, cM0, G1, ER+, NJ+, HER2-) - Signed by Daisha Sam NP on 07/20/2022 Overview (10/24/2022): 05/[address] Gtz oncologist for stage 2 breast cancer Told her tumor markers were good that she did not need rtx Had 2 LN of the 15 had cancer, had to udner go mastectomy and LN dissection no rtx Is on Anastrozole (Arimidex) for next 5 yrs Assessment & Plan (11/08/2023 2:20 PM CDT): 05/[address] Gtz oncologist for stage 2 breast cancer Told her tumor markers were good that she did not need rtx Had 2 LN of the 15 had cancer, had to undergo R mastectomy and LN dissection no rtx Is on Anastrozole (Arimidex) for next 5 yrs September 2022-2028 Cont under oncology stable Assessment & Plan (10/24/2022 3:36 PM CDT): 05/[address] Gtz oncologist for stage 2 breast cancer Told her tumor markers were good that she did not need rtx Had 2 LN of the 15 had cancer, had to udner go mastectomy and LN dissection no rtx Is on Anastrozole (Arimidex) for next 5 yrs Assessment & Plan (06/27/2022 11:07 AM SWIMMING POOL SERVICEPERSON): Recent dx, ongoing Cont under care of surgeon, oncology and radiation oncology for plan of care Low blood potassium 02/21/2022 Assessment & Plan (05/13/2024 11:08 AM SWIMMING POOL SERVICEPERSON): Eat k rich foods Monitor, can cause arrhythmia Check Mg Assessment & Plan (02/14/2024 5:10 PM CDT): Had been prev sec to indapamide, but stopped While in hosp recently, K was low but replaced No sx of low K Eat foods rich in potassium, improved resolved Assessment & Plan (05/03/2023 2:05 PM CDT): Stable Likely was from indapamide diuretic Indapamide stopped Eat foods rich in potassium, improved Assessment & Plan (02/21/2022 11:58 AM CDT): Likely from indapamide diuretic Stop Indapamide Stop the the potassium pill 3 days later K level in 1 week Eat foods rich in potassium Medicare annual wellness visit, subsequent 06/16 Assessment & Plan (11/08/2023 1:49 PM CDT): Reviewed previous labs and diagnostic test results. Chronic medical problems evaluated and management plans discussed with the patient. Prescription medications, supplements, vitamins and immunizations reviewed. Wear seatbelts. Use sunscreen. Discussed healthy diet and disease prevention. Recommend moving towards a plant based diet. Discussed importance of scheduling recommended screening tests. Discussed importance of regular physical examinations for health maintenance. Discussed importance of a living will, advanced directives and establishing or updating healthcare power of attorney recruiter document and providing our office with a copy. Assessment & Plan (06/27/2022 11:04 AM SWIMMING POOL SERVICEPERSON): Reviewed previous labs and diagnostic test results. Chronic medical problems evaluated and management plans discussed with the patient. Prescription medications, supplements, vitamins and immunizations reviewed. Wear seatbelts. Use sunscreen. Discussed healthy diet and disease prevention. Recommend moving towards a plant based diet. Discussed importance of scheduling recommended screening tests. Discussed importance of regular physical examinations for health maintenance. Discussed importance of a living will, advanced directives and establishing or updating healthcare power of attorney recruiter document and providing our office with a copy. Assessment & Plan (06/16/2020 3:46 PM SWIMMING POOL SERVICEPERSON): Wear sunscreen with SPF over 50 while outdoors. Wear sun protective head wear and clothing if planning to stay outdoors exposed to the direct sunlight for extended hours. Wear seatbelts while in a vehicle. Do not TEXT and DRIVE Do not DRINK and DRIVE. Drink responsibly Follow a heart healthy diet and lifestyle. Consume 5-7 servings of fruits and vegetables a day.. Such as the Mediterranean Diet. Maintain/attain normal body weight. Exercise regularly, minimum 20 mins 3 days a week to reduce cardiovascular healthy. Maintain good sleep schedule and sleep habits I recommend that all patients follow a diet that is high in fruits and vegetables and low in processed foods such as sugar and foods that are made with white flour. I recommend using beneficial fats such as olive oil, nuts, seeds and berries and avoiding saturated animal fats. Please stay physically active to the extent that you are physically able to. Test results: if you have not received communication about test results within 7 days of the test being performed, please contact the office. I strongly encourage myChart sign ups. It can facilitate communication flow. Please contact the office for instructions on signing up. Risk for falls 06/16/2020 Assessment & Plan (11/08/2023 1:49 PM CDT): Patient at risk for falls due to age and co morbidities. Fall prevention discussed c patient in detail. Exercises for balance and coordination, keep LE muslces toned and strong. Assessment & Plan (06/27/2022 11:05 AM SWIMMING POOL SERVICEPERSON): Patient at risk for falls due to age and co morbidities. Fall prevention discussed c patient in detail. Exercises for balance and coordination, keep LE muslces toned and strong. Assessment & Plan (06/16/2020 3:46 PM SWIMMING POOL SERVICEPERSON): Patient at risk for falls due to age and co morbidities. Fall prevention discussed c patient in detail. Exercises for balance and coordination, keep LE muslces toned and strong. Cyst, dermoid, leg, right 02/12/2019 Overview (03/02/2020): [place] size (peanut M&M size) Assessment & Plan (02/12/2019 2:05 PM CDT): Observe, call if gets bigger May need this surgically removed BMI 29.0-29.9,adult 10/22/2018 Assessment & Plan (10/24/2022 3:44 PM CDT): No longer in obesity Just overweight at this time Needs to lose more weight Assessment & Plan (06/27/2022 11:05 AM SWIMMING POOL SERVICEPERSON): Cont working on wt loss Exercise more Assessment & Plan (02/21/2022 12:03 PM CDT): Improving gradually Assessment & Plan (12/01/2021 11:09 AM CDT): Cont to work on wt loss Cont metformin, trulicity and dm control Assessment & Plan (08/23/2021 2:19 PM SWIMMING POOL SERVICEPERSON): Work on attempts to lose weight about 1 lb a week. Join a wt loss program if necessary. Try to reach for BMI under 30. Exercise regularly, Limit carbs and sugars. Control portion intake. Consume 6-8 8oz glasses of water daily. BMI Follow-up includes: nutrition counseling, exercise counseling and education provided. Assessment & Plan (06/16/2020 3:56 PM SWIMMING POOL SERVICEPERSON): Cont to Work on attempts to lose weight about 1 lb a week. Join a wt loss program if necessary. Try to reach for BMI under 30. Exercise regularly, Limit carbs and sugars. Control portion intake. Consume 6-8 8oz glasses of water daily. BMI Follow-up includes: nutrition counseling, exercise counseling and education provided. Assessment & Plan (02/12/2019 1:48 PM CDT): Cont to work on wt loss, improving down from 186 to now 179 Umbilical hernia without obstruction and without gangrene 03/05/2018 Personal history of colonic polyps 03/05/2018 Overview (11/23/2020): colonoscopy was 05/[address] Sesay Colonoscopy 11/19/[address] Sesay, no polyps found, ff up 5 yrs Assessment & Plan (06/16/2020 3:51 PM SWIMMING POOL SERVICEPERSON): Due for ff up colonoscopy, due to covid it is on hold Was due 05/[address] Sesay Type 2 diabetes mellitus wit h diabetic polyneuropathy, without long-term current use of insulin 11/02/2017 Overview (05/13/2024): Dilated eye exam 07/12/2019 Dr Narayan, OD. No Retinopathy, age related nuclear cataract Was on Invokana, glipizide, metformin changed to Trulicity, glipizide and metformin Assessment & Plan (05/13/2024 10:57 AM SWIMMING POOL SERVICEPERSON): Improving Now A1c down to 6.1 Appetite is down Wt is down No recent prednisone therapy Cont to test BS daily Runs in the 90s No hypoglycemia but at times feels a little shakey Reduce glipizide to 2.5 mg Cont rx Trulicity at 4.5 mg weekly Cont Metformin at 1000 mg bid Stable Assessment & Plan (11/08/2023 1:55 PM CDT): A1c at 6.8 was 6.8 Had prednisone for 7 days recently Cont to test BS daily Runs in the 90s No hypoglycemia Cont rx regimen Cont rx Trulicity Stable Assessment & Plan (05/03/2023 1:45 PM CDT): A1c up to 6.8 was 6.1 Had prednisone for 7 days recently Cont to test BS daily Runs in the 90s No hypoglycemia Cont rx regimen Cont rx Trulicity Stable Assessment & Plan (10/24/2022 3:42 PM CDT): Cont on Rx Trulicity, glipizide and metformin a1c is better Wt is down 6 lbs Assessment & Plan (06/27/2022 11:22 AM SWIMMING POOL SERVICEPERSON): Controlled Better is now 6.3 down from 7.3 1 yr ago! Cont on trulicity to 4.5 mg since tolerating and doing better For now due to breast cancer dx and possible surgery expect BS to maybe go up a little wont remove the glipizide yet Ff low sugar diet Assessment & Plan (02/21/2022 7:17 PM CDT): Controlled Better Inc trulicity to 4.5 mg since tolerating and doing better Cont glipizide, hope is to stop this once a1c drops further Ff low sugar diet Assessment & Plan (12/01/2021 11:28 AM CDT): Worsening, but new to trulicity, she just inc her dose 3 wks ago to the 3mg weekly, a1c up from last time at 7.3% Cont the glipizide at 5mg and call if having a lot of low bs under 70 Improve on diet Inc trulicity dose to 4.5 after next visit if a1c is not under 7% Repeat in 3mos Assessment & Plan (08/23/2021 6:44 PM SWIMMING POOL SERVICEPERSON): a1c is improved since on trulicity a1c down to 6.8% today despite recent holidays was 6.7 last OV Doing well on Lowered glipizide to 10mg once a day, goal is to eventually d/c glipizide Decrease dose to 5mg patient to call when she is running low on Trulicity medication. Increase the trulicity dose to 3mg weekly. Cont the metformin therapy however take a 1000 mg b.i.d. Patient call when she is running low on Trulicity medication she had an overlap on her supply by the pharmacy he she had some 0.75 mg pans as well as 1.5 mg pen so so she has been alternating these medications she has about 4-6 weeks will worth of supply. She plans to call when she is close to running out for and to receive a new prescription for Trulicity 3 mg weekly and a decrease in the dosage of the glipizide to 5 mg daily. Long-term goal is to discontinue sulfonylurea medication glipizide and to obtain as much advantage from the Trulicity medication that will also help her lose weight. Cont to monitor bs daily in fasting and 2 hrs after meals, keep 2 hrs post meal bs under 180 Assessment & Plan (04/12/2021 11:06 AM CDT): a1c is improved since on trulicity a1c down to 6.7% today Lower glipizide to 10mg once a day Increase the trulicity dose Cont the metformin 500mg in am and 1500mg in the PM Cont to monitor bs daily in fasting and 2 hrs after meals, keep 2 hrs post meal bs under 180 Assessment & Plan (01/04/2021 12:27 PM CDT): Diabetic foot exam today. Form completion for diabetic shoes Try to see if there is a patient assistance program for trulicity a1c is 7.4 much better on trulicity Assessment & Plan (09/28/2020 12:20 PM CDT): Wears diapers and there is always moisture in vaginal area Change invokana to ozempic or trulicity (depends on her insurance coverage) Cont metformin Over time would like to get her off glipizide (to avoid hypoglycemia) Work on diet and exercise Assessment & Plan (06/16/2020 3:57 PM SWIMMING POOL SERVICEPERSON): Controlled, a1c 7.5% Cont diabetic diet Cont current regimen invokana, glucotrol and metformin Assessment & Plan (03/02/2020 10:48 AM CDT): a1c 8% not controlled can do better Avoid fast foods, keep carb intake lower Ff diabetic diet a1c in 3mos Assessment & Plan (08/28/2019 11:10 AM SWIMMING POOL SERVICEPERSON): Diabetes is overall controlled Cont on invokana, glipizide, metformin a1c is now at 7.6% (recent holidays) Patient will look up names of podiatrists in her [employer] book Assessment & Plan (02/12/2019 1:49 PM CDT): Improving a1c down to 7.3 from 8. Better. Cont on current medication regimen. Exercise/walk Avoid white colored foods: limit pasta, rice, bread, sugar, dairy Assessment & Plan (10/22/2018 2:14 PM CDT): Not optimum, woul like a1c under 7.4. Can do better. Increase invokana dose to 300mg a day. Follow a diabetic diet, especially no sugar in the diet Work on wt loss if body mass not at goal Start to exercise on a regular basis at least 3 days a week unless already doing this, unless Incapacitated Routine diabetic foot care recommended with a limited radiology technician Inspect feet on a regular basis report immediately if there are any open sores or signs of infection Monitor blood sugars as discussed. Fasting blood sugars should be less than 120 and two-hour post meal blood sugars should be less than 180. Repeat and record blood sugars and bring readings to office visits. Bmp and a1c in 3 mos Lumbar spondylosis 05/04/2017 Assessment & Plan (08/23/2021 2:13 PM SWIMMING POOL SERVICEPERSON): Stable Cont same regimen Tylenol prn Primary osteoarthritis of left knee 05/04/2017 Hypertension associated with type 2 diabetes donita litus 10/22/2015 Overview (05/13/2024): 01/2024 Interpretation Summary Left ventricular systolic function is normal. Ejection Fraction = 55-60%. The left ventricular wall motion is normal. There is mild tricuspid regurgitation.Right ventricular systolic pressure is '37mmHg + RAP' mm/HG. Diastolic dysfunction, Grade II, consistent with elevated left atrial pressure. No evidence of severe valvular pathology. Assessment & Plan (05/13/2024 11:06 AM SWIMMING POOL SERVICEPERSON): Stable BP Cont same regimen Last echo 01/2024 wnl Interpretation Summary Left ventricular systolic function is normal. Ejection Fraction = 55-60%. The left ventricular wall motion is normal. There is mild tricuspid regurgitation.Right ventricular systolic pressure is '37mmHg + RAP' mm/HG. Diastolic dysfunction, Grade II, consistent with elevated left atrial pressure. No evidence of severe valvular pathology. Assessment & Plan (11/08/2023 1:59 PM CDT): Follow low sodium DASH Diet. Exercise regularly for CV health and weight loss. Try walking Take rx medications as prescribe, rx Trulicity, Glipizide, metformin Continue Rx medication. BP is controlled and stable. Assessment & Plan (05/03/2023 1:46 PM CDT): Follow low sodium DASH Diet. Exercise regularly for CV health and weight loss. Achieve or Maintain normal BMI/Weight. Take medications as prescribed. Continue Rx medication. BP is controlled and stable. Assessment & Plan (10/24/2022 3:43 PM CDT): Follow low sodium DASH Diet. Exercise regularly for CV health and weight loss. Achieve or Maintain normal BMI/Weight. Take medications as prescribed. Report if having problems with the medication or if develops Chest pains. Monitor BP occly and record. Report if BP consistently over 160/90 or under 90/60 and dizzy and LH. Continue Rx medication. BP is controlled and stable. Assessment & Plan (06/27/2022 11:04 AM SWIMMING POOL SERVICEPERSON): bp controlled K better since stopping indapamide due to low K Assessment & Plan (02/21/2022 12:00 PM CDT): bp controlled Will stop indapamide due to low K Stop K 3 days later If gets edema from amlodipine, will try spirinolactone Assessment & Plan (12/01/2021 11:08 AM CDT): Controlled Cont same regimen Assessment & Plan (08/23/2021 6:42 PM SWIMMING POOL SERVICEPERSON): Stable. Continue current regimen. Follow low sodium diet Assessment & Plan (04/12/2021 10:54 AM CDT): Controlled Cont to monitor BP at home Ff low sodium diet Assessment & Plan (01/04/2021 12:25 PM CDT): bp controlled Cont same regimen Assessment & Plan (09/28/2020 12:23 PM CDT): Follow low sodium DASH Diet. Exercise regularly for CV health and weight loss. Achieve or Maintain normal BMI/Weight. Take medications as prescribed. Report if having problems with the medication or if develops Chest pains. Monitor BP occly and record. Report if BP consistently over 160/90 or under 90/60 and dizzy and LH. BP is controlled and stable. Assessment & Plan (06/16/2020 3:52 PM SWIMMING POOL SERVICEPERSON): bp controlled Cont low sodium deit Assessment & Plan (03/02/2020 10:34 AM CDT): Follow low sodium DASH Diet. Exercise regularly for CV health and weight loss. Achieve or Maintain normal BMI/Weight. Take medications as prescribed. Report if having problems with the medication or if develops Chest pains. Monitor BP occly and record. Report if BP consistently over 160/90 or under 90/60 and dizzy and LH. BP is controlled and stable. Assessment & Plan (08/28/2019 11:07 AM SWIMMING POOL SERVICEPERSON): Follow low sodium DASH Diet. Exercise regularly for CV health and weight loss. Achieve or Maintain normal BMI/Weight. Take medications as prescribed. Report if having porblems with the medication or if develops Chest pains. Monitor BP occly and record. Report if BP consistently over 160/90 or under 90/60 and dizzy and LH. BP is controlled and stable. Assessment & Plan (10/22/2018 1:43 PM CDT): Follow low sodium DASH Diet. Exercise regularly for CV health and weight loss. Achieve or Maintain normal BMI/Weight. Take medications as prescribed. Report if having porblems with the medication or if develops Chest pains. Monitor BP occly and record. Report if BP consistently over 160/90 or under 90/60 and dizzy and LH. BP is controlled and stable. Dyslipidemia associated with type 2 diabetes mellitus ([facility]) 10/22/2015 Overview (03/02/2020): lovastatin Assessment & Plan (05/13/2024 11:07 AM SWIMMING POOL SERVICEPERSON): Follow step 1 low cholesterol diet/ Mediterranean Diet. Recommend to continue with current Rx medication to lower and control cholesterol Controlled. Assessment & Plan (05/03/2023 1:47 PM CDT): Follow step 1 low cholesterol diet/ Mediterranean Diet. Recommend to continue with current Rx medication to lower and control cholesterol Controlled. Assessment & Plan (10/24/2022 3:43 PM CDT): Follow step 1 low cholesterol diet/ Mediterranean Diet. Report if having problems with daily nausea or extreme muscle aches and weaknesses from the chol medication Monitor lipid levels on a regular basis as discussed and planned. Recommend to continue with current Rx medication to lower and control cholesterol Controlled. Assessment & Plan (06/27/2022 11:04 AM SWIMMING POOL SERVICEPERSON): Stable on lovastatin Cont same dose Ff low chol diet Assessment & Plan (02/21/2022 7:16 PM CDT): Stable on lovastatin Cont same dose Ff low chol diet Assessment & Plan (12/01/2021 11:08 AM CDT): Improving Cont statin Cont trulicity Assessment & Plan (08/23/2021 6:42 PM SWIMMING POOL SERVICEPERSON): Stable on lovastatin therapy. Follow low-cholesterol diet Assessment & Plan (04/12/2021 10:54 AM CDT): Cont on statin medication for stroke and CA prevention Assessment & Plan (01/04/2021 12:26 PM CDT): Controlled Cont the same Assessment & Plan (09/28/2020 12:24 PM CDT): Follow step 1 low cholesterol diet. Report if having problems with daily nausea or extreme muscle aches and weaknesses throughout the body if you have been prescribed a statin medication. Monitor lipid levels on a regular basis as discussed and planned. Recommend to continue with current medication. Controlled on current regimen. Assessment & Plan (06/16/2020 3:52 PM SWIMMING POOL SERVICEPERSON): Chol controlled Follow low chol diet Assessment & Plan (03/02/2020 10:33 AM CDT): Follow step 1 low cholesterol diet. Report if having problems with daily nausea or extreme muscle aches and weaknesses throughout the body if you have been prescribed a statin medication. Monitor lipid levels on a regular basis as discussed and planned. Recommend to continue with current medication. Controlled on current regimen. Assessment & Plan (08/28/2019 11:06 AM SWIMMING POOL SERVICEPERSON): Follow step 1 low cholesterol diet. Report if having problems with daily nausea or extreme muscle aches and weaknesses throughout the body if you have been prescribed a statin medication. Monitor lipid levels on a regular basis as discussed and planned. Recommend to continue with current medication. Controlled on current regimen. Assessment & Plan (10/22/2018 1:43 PM CDT): Follow step 1 low cholesterol diet. Report if having problems with daily nausea or extreme muscle aches and weaknesses throughout the body if you have been prescribed a statin medication. Monitor lipid levels on a regular basis as discussed and planned. Recommend to continue with current medication. Controlled on current regimen. Acquired hypothyroidism 10/22/2015 Assessment & Plan (05/13/2024 11:07 AM SWIMMING POOL SERVICEPERSON): Cont current rx levothyroxine medication dose is euthyroid Report if has frequent palpitations, irreg heart beat or sudden changes in weight. Report if develops problem swallowing or hoarseness Assessment & Plan (11/08/2023 2:21 PM CDT): Cont current rx levothyroxine medication dose is euthyroid Report if has frequent palpitations, irreg heart beat or sudden changes in weight. Report if develops problem swallowing or hoarseness Assessment & Plan (05/03/2023 1:53 PM CDT): Cont current rx medication dose is euthyroid Report if has frequent palpitations, irreg heart beat or sudden changes in weight. Report if develops problem swallowing or hoarseness Assessment & Plan (10/24/2022 3:42 PM CDT): Cont current rx medication dose is euthyroid Report if has frequent palpitations, irreg heart beat or sudden changes in weight. Report if develops problem swallowing or hoarseness Assessment & Plan (06/27/2022 11:04 AM SWIMMING POOL SERVICEPERSON): Cont thyroid at same dose Will adjust accdgly as wt drops more Will monitor TSH more closely Assessment & Plan (02/21/2022 7:18 PM CDT): Cont thyroid at same dose Will adjust accdgly as wt drops more Will monitor TSH more closely Assessment & Plan (12/01/2021 11:09 AM CDT): Cont current dose is euthyroid Report if has frequent palpitations, irreg heart beat or sudden changes in weight. Report if develops problem swallowing or hoarseness Assessment & Plan (08/23/2021 6:42 PM SWIMMING POOL SERVICEPERSON): Patient currently euthyroid. Continue current dosage. Assessment & Plan (04/12/2021 10:54 AM CDT): Cont current dose is euthyroid Report if has frequent palpitations, irreg heart beat or sudden changes in weight. Report if develops problem swallowing or hoarseness Assessment & Plan (01/04/2021 12:26 PM CDT): Taking thyroid medication as rx. Denies palpiations. Denies problems with swallowing or changes in voice. Denies pain in the lower neck region. Assessment & Plan (09/28/2020 12:24 PM CDT): Cont current dose is euthyroid Report if has frequent palpitations, irreg heart beat or sudden changes in weight. Report if develops problem swallowing or hoarseness Assessment & Plan (06/16/2020 3:51 PM SWIMMING POOL SERVICEPERSON): Stable Cont current dose Assessment & Plan (03/02/2020 10:33 AM CDT): Cont current dose is euthyroid Report if has frequent palpitations, irreg heart beat or sudden changes in weight. Report if develops problem swallowing or hoarseness tsh due in 3 mos Assessment & Plan (08/28/2019 11:07 AM SWIMMING POOL SERVICEPERSON): Cont current dose is euthyroid Report if has frequent palpitations, irreg heart beat or sudden changes in weight. Report if develops problem swallowing or hoarseness Assessment & Plan (10/22/2018 1:44 PM CDT): Cont current dose is euthyroid Report if has frequent palpitations, irreg heart beat or sudden changes in weight. Report if develops problem swallowing or hoarseness IPMN (intraductal papillary mucinous neoplasm) 1 Overview (10/22/2018): Endoscopic US 05/2013 Dr Boyd, seen dr Nathan Georges in consultation. In 2013 had ff up Endoscopic US by dr Guzmán, was again unchanged. 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 CEA and CA 19-9 normal 2012. Assessment & Plan (11/08/2023 2:01 PM CDT): Endoscopic US 05/2013 Dr Boyd, seen dr Nathan Georges in consultation. In 2013 had ff up Endoscopic US by dr Guzmán, was again unchanged. 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 CEA and CA 19-9 normal 2012. Patient has not seen a dr on ff up in a while Patient did not establish with a GI yet for IPMN Patient to call back with name of Dr Her brother sees Assessment & Plan (12/01/2021 11:23 AM CDT): Endoscopic US 05/2013 Dr Boyd, seen dr Nathan Georges in consultation. In 2013 had ff up Endoscopic US by dr Guzmán, was again unchanged. 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 CEA and CA 19-9 normal 2012. Patient has not seen a dr on ff up in a while Patient plans to establish with a GI dr to the ff up on the IPMN Assessment & Plan (06/16/2020 3:57 PM SWIMMING POOL SERVICEPERSON): Patient to see dr Boyd at [facility] Assessment & Plan (08/28/2019 11:09 AM SWIMMING POOL SERVICEPERSON): Patient may be due for another endoscopic US for ff up. Has seen Dr Boyd and Dr Guzmán in the past. Might need to see a specialist at [facility] that takes [employer]. Assessment & Plan (06/03/2019 12:42 PM SWIMMING POOL SERVICEPERSON): Endoscopic US 05/2013 Dr Boyd, seen dr Nathan Georges in consultation. In 2013 had ff up Endoscopic US by dr Guzmán, was again unchanged. 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 CEA and CA 19-9 normal 2012. Patient previously told to follow up with Dr. Georges, but she is not sure how. Requests to see GI at [facility]. Assessment & Plan (10/22/2018 2:22 PM CDT): Cont to monitor. Pt will need to call Dr Georges office and inquire if can ff up be done by a siteman dr in [facility]. Resolved Problems Problem Noted Date Diagnosed Date Resolved Date E. coli UTI 02/14/2024 05/13/2024 Overview (02/14/2024): Cipro resistant E coli, admitted 02/06/2024 and discharged 02/08/2024 Assessment & Plan (02/14/2024 5:00 PM CDT): Cipro resistant E coli, admitted 02/06/2024 and discharged 02/08/2024 Finished oral abx cephalexin took for 4 days after discharge Blood cx negative Keep well hydrated Acute cystitis with hematuria 02/06/2024 05/13/2024 Assessment & Plan (02/14/2024 5:08 PM CDT): Hydrate well resolved Sepsis secondary to UTI 02/06/202410/2023 Assessment & Plan (02/14/2024 5:07 PM CDT): E coli cipro resistant Doing better after hospitalized and treated with IV abx and IVF Hypercalcemia 02/06/2024 05/13/2024 Post-operative state 07/20/2022 023 Influenza A 10/19/2021 02/21/2022 Overview (10/20/2021): Tested positive 10/19/2021 History of recent fall 03/02/202006/16 Overview (03/02/2020): Fell at [facility], back spasm, [facility], xrays neg Assessment & Plan (03/02/2020 10:58 AM CDT): dexa hip and spine NL Patient at risk for falls due to age and co morbidities. Fall prevention discussed c patient in detail. Exercises for balance and coordination, keep LE muslces toned and strong. May benefit from Physical therapy for gait, balance and coordination and prevention of future falls Rib pain on right side 03/02/202006/16 Assessment & Plan (03/02/2020 10:51 AM CDT): May benefit from Physical therapy for upper back right rib cage pain and gait, balance and coordination and prevention of future falls Good back care Heat/ice prn Exercises lower back SALONPAS patches Tylenol arthritis 500-650mg q 4 hrs prn pain Serum calcium elevated 03/02/202012/01 Overview (03/02/2020): Normal dexa scan 02/26 Assessment & Plan (12/01/2021 11:21 AM CDT): No longer elevated resolved Assessment & Plan (09/28/2020 12:28 PM CDT): Now 10.7, been elevated since 2018 R/o prim Hyperparathyroidism PTH intact, ionized calcium, 25 oh vit vit d, 1, 25 di hydroxyvitamin d, PTHrp Assessment & Plan (06/16/2020 4:01 PM SWIMMING POOL SERVICEPERSON): Do not take calcium supplements 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 Musculoskeletal neck pain 02/12/2019 Assessment & Plan (02/12/2019 2:07 PM CDT): Neck exercises to reduce pain and reduce nursing home problems Atypical chest pain 06/26/2013 10/23/19 19 Overview (10/14/2016): Atypical chest pain Immunizations Immunization Administration Dates Next Due Influenza, Quadrivalent, Hig h Dose, Preservative Free, Intrr 05/03/2023,06/29/2022,04/12/2021,04/04,04/04/2020 Influenza, Trivalent, High D ose, Split, Preservative Free, Intramuscular 04/15/2024,04/28/2019,04/28/2019,04/17,04/17/2018,04/10/2017,04/10/2017 ,04/28/2016 Influenza, Trivalent, IM (MDV) 03/04/2015 Influenza, Unspecified 06/29/2022 Pfizer SARS-CoV-2 Monovalent Vaccination (12+ Yrs) PURPLE 10/02/2020,09/11/2020 Pneumococcal Conjugate PCV 13 02/07/2015 Pneumococcal Polysaccharide PPV23 03/02/2020, Tetanus toxoid, adsorbed 05/26/2011 [facility] 11/22/2010 Social History Tobacco Use Types Packs/Day Years Used Date Smoking Tobacco: Never Smokeless Tobacco: Never Tobacco Cessation:Counseling Given: Not Answered Alcohol Use Standard Drinks/Week Comments Yes 0 (1 standard drink = 0.6 oz pur e alcohol) [facility] [employer] Answer Date Recorded In the past 12 months has [employer], [employer]more, oil, or water [employer] threatened to shut off services in your home? No 02/07/2024 Social Connection and Isolat ion Panel [NHANES] Answer Date Recorded In a typical week, how many times do you talk on the phone with family, friends, or neighbors? More than three times a week 02/07/2024 How often do you get togethe r with friends or relatives? More than three times a week 02/07/2024 How often do you attend chur or catholic services? 1 to 4 times per year 02/07/2024 Do you belong to any clubs o r organizations such as tenriism groups, unions, fraternal or athletic groups, or school groups? No 02/07/2024 How often do you attend meet ings of the clubs or organizations you belong to? Never 02/07/2024 Are you , , di vorced, , never , or living with a partner? 02/07/2024 AUDIT-C Answer Date Recorded Q1: How often do you have a drink containing alcohol? Never 02/14/2024 Q2: How many drinks containi ng alcohol do you have on a typical day when you are drinking? Patient does not drink 08/07/202 4 Q3: How often do you have si x or more drinks on one occasion? Never 02/14/2024 Overall Financial Resource Strain (CARDIA) Answe r Date Recorded How hard is it for you to pa y for the very basics like food, housing, medical care, and heating? Not very hard 02/07/2024 PHQ-2 Answer Date Recorded PHQ-2 Total Score (If total score is 3 or more points, staff should administer the PHQ-9) 0 09/04/2024 Hunger Vital Sign Answer Date Recorded Within the past 12 months, y ou worried that your food would run out before you got the money to buy more. Never true 02/07/20 24 Within the past 12 months, t he food you bought just didn't last and you didn't have money to get more. Never true 02/07/2024 PRAPARE - Transportation Answer Date Re corded In the past 12 months, has l ack of transportation kept you from medical appointments or from getting medications? No 01/09 In the past 12 months, has l ack of transportation kept you from meetings, work, or from getting things needed for daily living? No 02/07/2024 PHQ-9 Answer Date Recorded PHQ-9 Total Score 4 11/08/2023 Housing Stability Vital Sign Answer Nakul e Recorded In the last 12 months, was t here a time when you were not able to pay the mortgage or rent on time? No 02/07/2024 In the past 12 months, how m any times have you moved where you were living? 0 02/07/2024 At any time in the past 12 m [facility], were you homeless or living in a fci (including now)? No 02/07/2024 Personal Safety Answer Date Recorded Have you ever been in or are you currently in a harmful physical or emotional relationship or is someone making you feel afraid or unsafe? Denies 02/06/2024 Comments No Sex and Gender Information Value Date Recorded Sex Assigned at Not on file Legal Sex Female 7:57 PM SWIMMING POOL SERVICEPERSON Gender Identity Not on file Sexual Orientation Not on file Last Filed Vital Signs Vital Sign Reading Time Taken Comments Blood Pressure 140/70 09/04/2024 3:07 PM SWIMMING POOL SERVICEPERSON Pulse 94 09/04/2024 3:07 PM SWIMMING POOL SERVICEPERSON Temperature 36.4 C (97.5 F) 09/04/2024 3:07 PM SWIMMING POOL SERVICEPERSON Respiratory Rate 18 02/14/2024 4:09 PM CDT Oxygen Saturation 97% 09/04/2024 3:07 PM SWIMMING POOL SERVICEPERSON Inhaled Oxygen Concentration - - Weight 76.2 kg (168 lb) 09/04/2024 3:07 PM SWIMMING POOL SERVICEPERSON Height 162.6 cm (5' 4.02 ) 09/04/2024 3:07 PM CS T Body Mass Index 28.82 09/04/2024 3:07 PM SWIMMING POOL SERVICEPERSON Plan of Treatment Not on file Medical Devices Implanted Type Area Heat Set Operator Device Identifier Shelf Expiration Date Model / Serial / Lot [employer] Mammomark Cormark Tissue Bowtie Marker Breast Biopsy Collagen [id number] - [id number] Implanted:Qty: 1 on 2022 at [facility] [employer] [id number] 04/02/2023 [id number] / / [id number] [employer] Ultracor Twirl Bard 17ga 10cm Rigid Needle Radiopaque Tissue Ring Latex Free [id number] - [id number] Implanted:Qty: 1 on 2022 at [facility] [employer] [id number] / / Procedures Procedure Name Priority Date/Time Associated Diagnosis Comments THYROID FUNCTION CASCADE Routine 09/13/2024 10:48 AM SWIMMING POOL SERVICEPERSON Acquired hypothyroidism SCAN - LABS 09/13/2024 POCT HEMOGLOBIN A1C Routine 09/04/2024 4:00 PM SWIMMING POOL SERVICEPERSON Type 2 diabetes mellitus with diabetic polyneuropathy, without long-term current use of insulin ([facility]) STRESS TEST FOR DUAL READ Schedule Routine, Read Routine (OP Routine) 08/19/2024 1:03 PM SWIMMING POOL SERVICEPERSON Irregular heart beat Systolic murmur Dyslipidemia associated with type 2 diabetes mellitus (CMS/HCC) (HCC) Essential hypertension Atrial premature depolarization Coronary artery calcification seen on CT scan Exertional dyspnea Abnormal EKG Pulmonary hypertension (HCC) NM MPI SPECT (REST AND/OR STRESS) MULTIPLE STUDIES Schedule Routine, Read Routine (OP Routine) 08/19/2024 1:03 PM SWIMMING POOL SERVICEPERSON Irregular heart beat Systolic murmur Dyslipidemia associated with type 2 diabetes mellitus (CMS/HCC) (HCC) Essential hypertension Atrial premature depolarization Coronary artery calcification seen on CT scan Exertional dyspnea Abnormal EKG Pulmonary hypertension (HCC) MAGNESIUM Routine 07/12/2024 9:16 AM SWIMMING POOL SERVICEPERSON Irregular heart beat Systolic murmur Dyslipidemia associated with type 2 diabetes mellitus (CMS/HCC) (HCC) Essential hypertension Atrial premature depolarization Coronary artery calcification seen on CT scan Exertional dyspnea Abnormal EKG Pulmonary hypertension (HCC) BASIC METABOLIC PANEL Routine 07/12/2024 9:16 AM SWIMMING POOL SERVICEPERSON Irregular heart beat Systolic murmur Dyslipidemia associated with type 2 diabetes mellitus (CMS/HCC) (HCC) Essential hypertension Atrial premature depolarization Coronary artery calcification seen on CT scan Exertional dyspnea Abnormal EKG Pulmonary hypertension (HCC) LIPID PANEL Routine 10/31/2023 8:58 AM CDT Type 2 diabetes mellitus with diabetic polyneuropathy, without long-term current use of insulin (HCC) Hypertension associated with type 2 diabetes mellitus (HCC) Dyslipidemia associated with type 2 diabetes mellitus (CMS/HCC) (HCC) Acquired hypothyroidism Low blood potassium ALBUMIN CREATININE RATIO, URINE Routine 10/31/2023 8:58 AM CDT Type 2 diabetes mellitus with diabetic polyneuropathy, without long-term current use of insulin (HCC) Hypertension associated with type 2 diabetes mellitus (HCC) Dyslipidemia associated with type 2 diabetes mellitus (CMS/HCC) (HCC) Acquired hypothyroidism Low blood potassium DEXA AXIAL SKELETON BONE DENSITY 1 OR MORE SITES Schedule Routine, Read Routine (OP Routine) 10/26/2023 9:53 AM CDT Osteoporosis, unspecified osteoporosis type, unspecified pathological fracture presence DIABETES EYE EXAM Routine 04/10/2023 SCREENING MAMMOGRAM BILATERAL W MAO Schedule Routine, Read Routine (OP Routine) 03/17/2022 9:50 AM CDT Screening mammogram, encounter for COLONOSCOPY Routine 11/19/2020 HEPATITIS C ANTIBODY Routine 05/19/2014 10:55 AM SWIMMING POOL SERVICEPERSON from Last 3 Months or Most Recently Relevant to Health Maintenance Results * Thyroid Function [place] (09/13/2024 10:48 AM SWIMMING POOL SERVICEPERSON) TSH 2.17 0.40 - 4.50 mIU/L [facility] Blood 09/13/2024 10:4 8 AM SWIMMING POOL SERVICEPERSON 09/13/2024 10:48 AM SWIMMING POOL SERVICEPERSON Daria Ferraro NP LAB BLOOD ORDERABLES Final R esult [facility] [id number] [place] [address] * SCAN - LABS (09/13/2024) Provider Scanning Final Result * POCT hemoglobin A1c (09/04/2024 4:00 PM SWIMMING POOL SERVICEPERSON) Hemoglobin A1C, POC 6.5 4.0 - 5.6 % Blood spot 09/04/2024 4:00 PM SWIMMING POOL SERVICEPERSON Daria Ferraro NP POINT OF CARE TEST ORDERABLE S Final Result * NM MPI SPECT (Rest and/or Stress) Multiple Studies (08/19/2024 1:03 PM SWIMMING POOL SERVICEPERSON) Anatomical Region Laterality Modality Body N/A Nuclear Medicine Addenda Addendum by Vladimir Isaac MD on 08/20/2024 10:37 PM SWIMMING POOL SERVICEPERSON Study date corrected to 08/19/2024 Impressions 08/20/2024 10:18 PM SWIMMING POOL SERVICEPERSON 1. No scintigraphic evidence of myocardial ischemia. 2. Normal left ventricular size and systolic function. I personally supervised and interpreted the stress test. Copy to Floresita Samaniego MD John Lehman, MD 08/20/2024 Narrative 08/20/2024 10:18 PM SWIMMING POOL SERVICEPERSON Patient Id: Marilynn Barker is a 79 y.o. female. MR#: [id number] Study date: 08/20/2024 EXAM DESCRIPTION: NM MPI SPECT (REST AND/OR STRESS) MULTIPLE STUDIES RADIOPHARMACEUTICAL: Rest: 11 mCi Tc-99m tetrofosmin via left antecubital fossa IV site Pharmacologic Stress: 33 mCi Tc-99m tetrofosmin via left antecubital fossa IV site REASON FOR STUDY: Exertional dyspnea which can be an anginal equivalent, abnormal EKG, coronary artery calcifications, hypertension, dyslipidemia, pulmonary hypertension TECHNIQUE: After informed consent, standard myocardial perfusion SPECT images were obtained after resting tracer injection. Subsequently, an intravenous infusion of regadenoson was performed. Standard myocardial perfusion images were obtained after tracer injection at the peak effect of the drug. STRESS PORTION AND EKG: See separately dictated report for stress portion and EKG. FINDINGS: Study quality: No motion artifact. Image quality is adequate at rest and at stress. No significant fixed or reversible myocardial perfusion defects are seen. Gated post-stress images demonstrate normal left ventricular wall thickening, without global or focal wall motion abnormality. The left ventricular volume is normal . The left ventricular ejection fraction is 73 % (normal >45%). There is no evidence of transient ischemic dilation with calculated TID ratio of 1.04 . Vladimir Isaac MD [facility] PROCEDURES Edited R esult - Final * Stress Test for Myocardial Perfusion (08/19/2024 1:03 PM SWIMMING POOL SERVICEPERSON) Anatomical Region Laterality Modality Nuclear Medicine Impressions 08/19/2024 12:28 PM SWIMMING POOL SERVICEPERSON 1. EKG portion of the stress test is negative for ischemia. 2. Nuclear images pending. I personally supervised and interpreted the stress test. Copy to Floresita Samaniego MD John Lehman, MD 08/19/2024 Narrative 08/19/2024 12:28 PM SWIMMING POOL SERVICEPERSON Patient Id: Marilynn Barker is a 79 y.o. female. MR#: [id number] Study date: 08/19/2024 EXAM DESCRIPTION: STRESS LEXISCAN MYOVIEW TECHNIQUE: Baseline EKG: Sinus rhythm, occasional atrial premature depolarizations, nonspecific ST and T-wave abnormality. Baseline blood pressure was 157/76 , and baseline heart rate was 83 . Stress test was performed according to Lexiscan protocol. Blood pressure after Lexiscan infusion was 122/51, and post infusion heart rate was 122. There were no EKG changes suggesting ischemia. There were no arrhythmias. SYMPTOMS: Patient denied chest pain or shortness of breath. Procedure Note Vladimir Isaac MD - 08/19/2024 Patient Id: Marilynn Barker is a 79 y.o. female. MR#: [id number] Study date: 08/19/2024 EXAM DESCRIPTION: STRESS LEXISCAN MYOVIEW TECHNIQUE: Baseline EKG: Sinus rhythm, occasional atrial premature depolarizations, nonspecific ST and T-wave abnormality. Baseline blood pressure was 157/76 , and baseline heart rate was 83 . Stress test was performed according to Lexiscan protocol. Blood pressure after Lexiscan infusion was 122/51, and post infusion heartrate was 122. There were no EKG changes suggesting ischemia. There were noarrhythmias. SYMPTOMS: Patient denied chest pain or shortness of breath. IMPRESSION: 1. EKG portion of the stress test is negative for ischemia. 2. Nuclear images pending. I personally supervised and interpreted the stress test. Copy to Floresita Samaniego MD John Lehman, MD 08/19/2024 Vladimir Isaac MD CV STRESS PROCEDURES Final Result * Magnesium (07/12/2024 9:16 AM SWIMMING POOL SERVICEPERSON) Pathologist [facility] Magnesium 1.6 1.5 - 2.5 mg/dL [facility] Blood 07/12/2024 9:16 AM SWIMMING POOL SERVICEPERSON 07/12/2024 9:17 AM SWIMMING POOL SERVICEPERSON Vladimir Isaca MD LAB BLOOD ORDERABLES Final Result [facility] [address] [place] [address] * (ABNORMAL) Basic metabolic panel (07/12/2024 9:16 AM SWIMMING POOL SERVICEPERSON) Glucose 140(H) 65 - 99 mg/dL [facility] Comment: Fasting reference interval For someone without known diabetes, a glucose value >125 mg/dL indicates that they may have diabetes and this should be confirmed with a follow-up test. BUN 25 7 - 25 mg/dL [facility] Creatinine 1.12(H) 0.60 - 1.00 mg/dL [facility] eGFR 50(L) > OR = 60 mL/min/1.7 3m2 [facility] BUN/creat ratio 22 6 - 22 (calc) [facility] Sodium 141 135 - 146 mmol/L [facility] Potassium, pl 3.5 3.5 - 5.3 mmol/L [facility] Chloride 100 98 - 110 mmol/L [facility] CO2 30 20 - 32 mmol/L [facility] Calcium 10.6(H) 8.6 - 10.4 mg/dL [facility] Blood 07/12/2024 9:16 AM SWIMMING POOL SERVICEPERSON 07/12/2024 9:17 AM SWIMMING POOL SERVICEPERSON Vladimir Isaac MD LAB BLOOD ORDERABLES Final Result [facility] [address] [place] [address] * (ABNORMAL) Albumin Creatinine Ratio, Urine (10/31/2023 8:58 AM CDT) Creatinine, ur 476(H) 20 - 275 mg/dL [facility] Comment: Verified by repeat analysis. Microalbumin, ur 43.5 See Note: mg/dL [facility] Comment: Reference Range: Reference Range Not established Verified by repeat analysis. Microalbumin/creat ratio 91(H) <30 mg/g creat [facility] Comment: The ADA defines abnormalities in albumin excretion as follows: Albuminuria Category Result (mg/g creatinine) Normal to Mildly increased <30 Moderately increased 30-299 Severely increased > OR = 300 The ADA recommends that at least two of three specimens collected within a 3-6 month period be abnormal before considering a patient to be within a diagnostic category. Urine 10/31/2023 8:58 AM CDT 10/31/2023 8:59 AM CDT Narrative [facility] - 11/01/2023 4:44 PM CDT FASTING:YES FASTING: YES Floresita Samaniego MD LAB URINE ORDERABLES Final R esult Performing Organization Address City/[facility]/ZIP Co de Phone Number [facility] [address] [place] [address] * (ABNORMAL) Lipid panel (10/31/2023 8:58 AM CDT) Pathologist [facility] Cholesterol 119 <200 mg/dL [facility] HDL 45(L) > OR = 50 mg/dL [facility] Triglycerides 111 <150 mg/dL [facility] LDL 55 mg/dL (calc) [facility] Comment: Reference range: <100 Desirable range <100 mg/dL for primary prevention; <70 mg/dL for patients with CHD or diabetic patients with > or = 2 CHD risk factors. LDL-C is now calculated using the Sarwat-Briseno calculation, which is a validated novel method providing better accuracy than the Friedewald equation in the estimation of LDL-C. Sarwat SS et al. NATALEE. 2013;310(19): 9547-4969 (http://education.Packetzoom/faq/UEK478) Chol/HDL ratio 2.6 <5.0 (calc) [facility] Non-HDL, (LDL+VLDL) 74 <130 mg/dL (calc) [facility] Comment: For patients with diabetes plus 1 major ASCVD risk factor, treating to a non-HDL-C goal of <100 mg/dL (LDL-C of <70 mg/dL) is considered a therapeutic option. Blood 10/31/2023 8:58 AM CDT 10/31/2023 8:59 AM CDT Narrative [facility] - 11/01/2023 4:44 PM CDT FASTING:YES FASTING: YES Floresita Samaniego MD LAB BLOOD ORDERABLES Final R esult [facility] [address] [place] [address] * Dexa Axial Skeleton Bone Density 1 or 2 Site (10/26/2023 9:53 AM CDT) Anatomical Region Laterality Modality Body N/A Mammography 10/26/2023 10:0 2 AM CDT Narrative 10/26/2023 10:03 AM CDT EXAM DESCRIPTION: DEXA AXIAL SKELETON BONE DENSITY 1 OR MORE SITES REASON FOR STUDY: 78 y/o year old F with given history of: Post menopausal status. History of prior fracture. Patient has taken/is taking vitamin-D, calcium, Fosamax and hormone replacement therapy. Heat Set Operator/Model: Enplug A (S/N [id number]) CLINICAL INFORMATION: Current height: 63.5 inches Maximum height: 64 inches Weight: 168 pounds Risk factors: Prior fracture COMPARISON: 02/11/2020 FINDINGS: AP LUMBAR SPINE L1-L4: Total BMD is 1.442 g/cm2 T-score is 3.6 This is a 10.9 % decrease in comparison to prior exam which is statistically significant. LEFT HIP: Total BMD is 1.001 g/cm2 T-score is 0.5 This is a 2.4% decrease in comparison to prior exam which is not statistically significant. Femoral neck BMD is 1.004 g/cm2 T-score is 1.4 FRAX: FRAX not reported due to T-scores of hip, femoral neck and/or spine being at or above -1.0 (Normal). IMPRESSION: Normal bone mass. REFERENCE: Bone mineral density: T-Score: Normal (T-score above or = -1.0) Low bone mass (T-score between -1.0 and -2.5) replaces the previously used term osteopenia Osteoporosis (T-score = or below -2.5) Z-Score: Within the expected range for age (Z-score above -2.0) Below the expected range for age (Z-score is -2.0 or below) Please see below follow up recommendations. Medical evaluation for secondary causes of low bone mineral density may be appropriate. FRAX is a World Health Organization validated fracture risk assessment tool that calculates a person's 10 year probability of a major osteoporosis related fracture and hip fracture. According to the National Osteoporosis Foundation guidelines, postmenopausal women and men age 50 or older with low bone mass and a 10 year probability of a major osteoporosis related fracture = or greater than 20% or a 10 year probability of a hip fracture = or greater than 3% should be considered for pharmacological treatment for the prevention of osteoporosis. For further information, including treatment recommendations, please refer to the 2019 ISCD Official Positions (http://www.iscd.org) and the NOF's Clinician's Guide to Prevention and Treatment of Osteoporosis (http://www.nof.org/professionals/clinical-guidelines) THIS IS AN ELECTRONICALLY VERIFIED FINAL REPORT 10/26/2023 10:03 AM - Electronically signed by Beverly Rizzo M.D. TW: TW Report ID: [id number] Reading Location: [id number] Procedure Note Beverly Rizzo MD - 10/26/2023 EXAM DESCRIPTION: DEXA AXIAL SKELETON BONE DENSITY 1 OR MORE SITES REASON FOR STUDY: 78 y/o year old F with given history of: Post menopausal status. History of prior fracture. Patient has taken/istaking vitamin-D, calcium, Fosamax and hormone replacement therapy. Heat Set Operator/Model: Hologic Horizon A (S/N [id number]) CLINICAL INFORMATION: Current height: 63.5 inches Maximum height: 64 inches Weight: 168 pounds Risk factors: Prior fracture COMPARISON: 02/11/2020 FINDINGS: AP LUMBAR SPINE L1-L4: Total BMD is 1.442 g/cm2 T-score is 3.6 This is a 10.9 % decrease in comparison to prior exam which isstatistically significant. LEFT HIP: Total BMD is 1.001 g/cm2 T-score is 0.5 This is a 2.4% decrease in comparison to prior exam which is notstatistically significant. Femoral neck BMD is 1.004 g/cm2 T-score is 1.4 FRAX: FRAX not reported due to T-scores of hip, femoral neck and/or spine beingat or above -1.0 (Normal). IMPRESSION: Normal bone mass. REFERENCE: Bone mineral density: T-Score: Normal (T-score above or = -1.0) Low bone mass (T-score between -1.0 and -2.5) replaces thepreviously used term osteopenia Osteoporosis (T-score = or below -2.5) Z-Score: Within the expected range for age (Z-score above -2.0) Below the expected range for age (Z-score is -2.0 or below) Please see below follow up recommendations. Medical evaluation forsecondary causes of low bone mineral density may be appropriate. FRAX is a World Health Organization validated fracture risk assessmenttool that calculates a person's 10 year probability of a major osteoporosisrelated fracture and hip fracture. According to the National OsteoporosisFoundation guidelines, postmenopausal women and men age 50 or older with low bonemass and a 10 year probability of a major osteoporosis related fracture = or greater than 20% or a 10 year probability of a hip fracture = or greaterthan 3% should be considered for pharmacological treatment for the preventionof osteoporosis. For further information, including treatment recommendations, please referto the 2019 ISCD Official Positions (http://www.iscd.org) and the NOF's Clinician's Guide to Prevention and Treatment of Osteoporosis (http://www.nof.org/professionals/clinical-guidelines) THIS IS AN ELECTRONICALLY VERIFIED FINAL REPORT 10/26/2023 10:03 AM - Electronically signed by Beverly Rizzo M.D. TW: TW Report ID: [id number] Reading Location: [id number] Floresita Samaniego MD IMG DXA PROCEDURES Final Res ult * (ABNORMAL) DIABETES EYE EXAM (04/10/2023) SCRIBED DIABETIC DILATED EYE EXAM Abnormal Historical Provider HEALTH MAINTENANCE Final Result * (ABNORMAL) Screening Mammogram Bilateral W Mao (03/17/2022 9:50 AM CDT) Anatomical Region Laterality Modality Breast Bilateral Mammography Impressions 03/17/2022 10:01 AM CDT BI-RADS ATLAS category (overall): 0 - Incomplete: Needs Additional Imaging Evaluation 1. Indeterminate right breast masses. Further evaluation with diagnostic right mammography and diagnostic right breast ultrasound is recommended. 2. No mammographic evidence of malignancy in the left breast. Routine screening mammography of the left breast is recommended in 1 year. The patient has been or will be contacted. Narrative 03/17/2022 10:01 AM CDT Screening Mammogram Bilateral W Mao: 03/17/22 The study was acquired using full field digital technology and interpreted from soft copy. 2D digital mammographic views, as well as 3D digital tomosynthesis were performed in the CC and MLO projections. CLINICAL: Screening mammogram, encounter for. No relevant medical history has been documented for this patient. History of breast cancer in Mother's Sister. COMPARISONS: 02/17/2021 Screening Mammogram Bilateral W Mao 02/11/2020 Screening Mammogram Bilateral W Mao 12/24/2018 Screening Mammogram Bilateral W Mao 10/31/2017 Screening Mammogram Bilateral W Mao 10/27/2016 Screening Mammogram Bilateral W Mao 10/22/2015 Screening Mammogram Bilateral W Mao BREAST TISSUE: The breasts are heterogeneously dense, which may obscure small masses. FINDINGS: There are benign appearing calcifications in both breasts. There also are indeterminate masses in the inner right breast, [id number]-[id number] depth ,and outer right breast, middle depth. No suspicious findings or suspicious changes are seen within either breast. us Self Screening Mammogram IMG MAMMO PROCEDURES Fi nal Result * HM COLONOSCOPY (11/19/2020) Historical Provider HEALTH MAINTENANCE Final Result * Hepatitis C antibody (05/19/2014 10:55 AM SWIMMING POOL SERVICEPERSON) Hep C Ab NONREACT NONREACTIVE 05/19/2014 12:41 PM SWIMMING POOL SERVICEPERSON [facility] HISTORICAL RESULTS Comment: Siem[employer] using MITCHELL (chemiluminescent immunoassay) technology. NONREACTIVE: Antibodies to Hepatitis C not detected. This does not exclude early acute Hepatitis C infection, possibility of exposure to Hepatitis C, antibodies below detection limit, or to lack of antibody reactivity to the antigen used in this assay. EQUIVOCAL: Antibodies to Hepatitis C may or may not be present. Sample to be confirmed by real-time PCR method. REACTIVE: Antibodies to Hepatitis C detected. 05/19/2014 10:5 5 AM SWIMMING POOL SERVICEPERSON 05/19/2014 11:00 AM SWIMMING POOL SERVICEPERSON us Floresita Samaniego MD LAB MICROBIOLOGY - GENERAL O RDERABLES Final Result [facility] HISTORICAL RESULTS from Last 3 Months or Most Recently Relevant to Health Maintenance Insurance HU[employer]NA MEDICARE HMO HUMANA MEDICARE HMO HUMANA MEDICARE HMO Advance Directives For more information, please contact: [phone] * Full Code (Latest Code Status on File) Date Activated Date Inactivated Comments 02/06/2024 12:45 PM 02/08/2024 6:23 PM * Full Code Date Activated Date Inactivated Comments 07/14/2022 5:59 PM 07/15/2022 8:31 PM Care Teams Compensation Vice President Relationship Specialty Start Date End Date Floresita Samaniego MD [address] [place] [address] PCP - General 04/07/14 Saulo Narayan OD [address] [place] [address] [id number] Optometry 08/08/19 Darci Connolly DPM [address] [place] [address] Referring Physician Podiatry 06/16/20 Laith Ortiz MD [address] [facility] [address] [place] [address] Consulting Physician Surgical Oncology 06/27/22 Francisco Gtz MD [address] [place] [address] Referring Physician Hematology 07/22/22
--- OUTSIDE RECORDS SUMMARY | 2024-10-10 13:47 | XMS_ITS | Encounter Summary ---
Author Organization [facility] Care Team Providers Care Supervisor [employer] Name Role Phone Floresita Samaniego MD Primary Care Provider + [phone] Simi Uriarte LPN Unavailable [phone] Nathan Waldron MD Unavailable [phone] Flavio Sesay MD Unavailable [phone] Saulo Narayan OD Unavailable + [phone] Darci Connolly DPM Unavailable [phone] Jamie Gamboa MD Unavailable [phone] Francisco Candelario MD PhD Unavailable [phone] Laith Ortiz MD Unavailable [phone] Jamie Gamboa MD Unavailable [phone] Francisco Gtz MD Unavailable [phone] Laith Ortiz MD Unavailable [phone] Encounter Details Date Type Department Care Team (Latest Contact Info) Description 03/07/2016 Orders Only [facility] CLINCONV ProviderAsim MD [address] [place] [address] Social History Tobacco Use Types Packs/Day Years Used Date Smoking Tobacco: Never Assessed Alcohol Use Standard Drinks/Week Comments Yes 0 (1 standard drink = 0.6 oz pur e alcohol) Comments Unknown Sex and Gender Information Value Date Recorded Sex Assigned at Not on file Legal Sex Female 7:57 PM AUTOMOTIVE ALIGNMENT SPECIALIST Gender Identity Not on file Sexual Orientation Not on file documented as of this encounter Plan of Treatment Not on file documented as of this encounter Procedures Procedure Name Priority Date/Time Associated Diagnosis Comments PROCEDURE - RESULT 03/08/2016 12 :00 AM CDT documented in this encounter Results * PROCEDURE - RESULT (03/08/2016 12:00 AM CDT) Narrative 03/08/2016 12:00 AM CDT Ordered by an unspecified provider. us Historical Provider Final Res ult documented in this encounter Visit Diagnoses Not on filedocumented in this encounter Additional Health Concerns Infection Onset Date Last Indicated Resolved Time COVID: Suspected 10/19/2021 10/19/2021 10/19/2021 5:51 PM CDT Influenza, adult 10/19/2021 10/19/2021 10/26/2021 3:05 AM CDT documented as of this encounter Care Teams Supervisor [employer] Relationship Specialty Start Date End Date Floresita Samaniego MD [address] [place] [address] PCP - General 04/07/14 Simi Uriarte, RESERVATION MANAGER [address] [place] [address] [address] [place] [address] Heel Builder 04/10/18 04/10/18 Nathan Waldron MD [address] [facility] [address] [place] [address] Consulting Physician Obstetrics and Gynecology 02/12/19 10/23/22 Flavio Sesay MD [address] [facility] [address] [place] [address] Referring Physician Gastroenterology 02/12/19 05/12/24 Saulo Narayan OD [address] [facility] [place] [address] Optometry 08/08/19 Darci Connolly DPM [address] [place] [address] Referring Physician Podiatry 06/16/20 Jamie Gamboa MD [address] DEPT [place] [address] Consulting Physician Radiation Oncology 06/08/22 Francisco Candelario MD PhD [address] [place] [address] Medical Oncologist/Hematologi st Hematology and Oncology 06/08/22 07/25/22 Laith Ortiz MD [address] [address] Consulting Physician Surgical Oncology 06/27/22 Jamie Gamboa MD [address] [place] [address] Consulting Physician Radiation Oncology 06/27/22 Francisco Gtz MD [address] [place] [id number] Referring Physician Hematology 07/22/22 Laith Ortiz MD [address] [address] Consulting Physician Surgical Oncology 05/03/23 4 documented as of this encounter
--- OUTSIDE RECORDS SUMMARY | 2024-10-10 13:47 | XMS_ITS | Encounter Summary ---
Author Organization [facility] Care Team Providers Care Dental Nurse Name Role Phone Floresita Samaniego MD Primary Care Provider + [phone] Simi Uriarte LPN Unavailable [phone] Nathan Waldron MD Unavailable [phone] Flavio Sesay MD Unavailable [phone] Saulo Narayan OD Unavailable + [phone] Darci Connolly DPM Unavailable [phone] Jamie Gamboa MD Unavailable [phone] Francisco Candelario MD PhD Unavailable [phone] Laith Ortiz MD Unavailable [phone] Jamie Gamboa MD Unavailable [phone] Francisco Gtz MD Unavailable [phone] Laith Ortiz MD Unavailable [phone] Encounter Details Date Type Department Care Team (Latest Contact Info) Description 06/12/2017 Orders Only [facility] CLINCONV ProviderAsim MD [address] [place] [address] Social History Tobacco Use Types Packs/Day Years Used Date Smoking Tobacco: Never Assessed Alcohol Use Standard Drinks/Week Comments Yes 0 (1 standard drink = 0.6 oz pur e alcohol) Comments Unknown Sex and Gender Information Value Date Recorded Sex Assigned at Not on file Legal Sex Female 7:57 PM OPERATIONS INTERN Gender Identity Not on file Sexual Orientation Not on file documented as of this encounter Plan of Treatment Not on file documented as of this encounter Procedures Procedure Name Priority Date/Time Associated Diagnosis Comments PROCEDURE - RESULT 06/13/2017 12 :00 AM OPERATIONS INTERN documented in this encounter Results * PROCEDURE - RESULT (06/13/2017 12:00 AM OPERATIONS INTERN) Narrative 06/13/2017 12:00 AM OPERATIONS INTERN Ordered by an unspecified provider. us Historical Provider Final Res ult documented in this encounter Visit Diagnoses Not on filedocumented in this encounter Additional Health Concerns Infection Onset Date Last Indicated Resolved Time COVID: Suspected 10/19/2021 10/19/2021 10/19/2021 5:51 PM CDT Influenza, adult 10/19/2021 10/19/2021 10/26/2021 3:05 AM CDT documented as of this encounter Care Teams Dental Nurse Relationship Specialty Start Date End Date Floresita Samaniego MD [address] [place] [address] PCP - General 04/07/14 Simi Uriarte, NICOLE [address] [place] [address] [address] [place] [address] Boom Master 04/10/18 04/10/18 Nathan Waldron MD [address] [facility] [address] [place] [address] Consulting Physician Obstetrics and Gynecology 02/12/19 10/23/22 Flavio Sesay MD [address] [facility] [address] [place] [address] Referring Physician Gastroenterology 02/12/19 05/12/24 Saulo Narayan CHAO [address] [facility] [address] Optometry 08/08/19 Darci Connolly DPM [address] [place] [address] Referring Physician Podiatry 06/16/20 Jamie Gamboa MD [address] DE[place] [address] Consulting Physician Radiation Oncology 06/08/22 Francisco Candelario MD PhD [address] [place] [address] Medical Oncologist/Hematologi st Hematology and Oncology 06/08/22 07/25/22 Laith Ortiz MD [address] [address] Consulting Physician Surgical Oncology 06/27/22 Jamie Gamboa MD [address] [place] [address] Consulting Physician Radiation Oncology 06/27/22 Francisco Gtz MD [address] [place] [address] Referring Physician Hematology 07/22/22 Laith Ortiz MD [address] [address] Consulting Physician Surgical Oncology 05/03/23 4 documented as of this encounter
--- OUTSIDE RECORDS SUMMARY | 2024-10-10 13:47 | XMS_ITS | Clinical Summary ---
Author Organization [facility] at [facility] Address [address] [place] [address] Care Team Providers Care Track Car Operator Name Role Phone Floresita Samaniego MD Primary Care Provider + [phone] Saulo Narayan OD Unavailable + [phone] Darci Connolly DPM Unavailable [phone] Laith Ortiz MD Unavailable Francisco Gtz MD Unavailable Allergies Active Allergy Reactions Criticality Noted Date [...] weekly 100 each 1 3 Active vitamin P60-yujax acid 0.5-1 mg tablet Take 1 tablet [...] 1 tablet (75 mcg total) by mouth fagoter before breakfast Active metFORMIN XR (GLUCOPHAGE XR) [...] insulin (HCC) TEST TWO TIMES DAILY 200 each 1 [...] 05/13/2024 Assessment & Plan (05/13/2024 5:30 PM COLLATOR): New finding today rule out AFib Reviewed [...] will need to get reestablished with a surgical coder. Will make referral. Essential hypertension 02/06/2024 Assessment & Plan (05/13/2024 11:09 AM COLLATOR): Bp stable Cont same regimen Ff low [...] Cancer Staging:Clinical:Stage IB(cT1c, cN1, cM0, G1, ER+, NY+, HER2-) - Signed by Francisco Candelario MD PhD on 06/17/2022 Pathologic stage from 07/20/2022:Stage IA(pT1c(2), pN1, cM0, G1, ER+, NY+, HER2-) - Signed by Daisha Sam NP [...] yrs Assessment & Plan (06/27/2022 11:07 AM COLLATOR): Recent dx, ongoing Cont under care of surgeon, oncology and radiation oncology for plan of care Low blood potassium 02/21/2022 Assessment & Plan (05/13/2024 11:08 AM COLLATOR): Eat k rich foods Monitor, can cause [...] and establishing or updating healthcare power of claim attorney document and providing our office with a copy. Assessment & Plan (06/27/2022 11:04 AM COLLATOR): Reviewed previous labs and diagnostic test results. [...] and establishing or updating healthcare power of claim attorney document and providing our office with a copy. Assessment & Plan (06/16/2020 3:46 PM COLLATOR): Wear sunscreen with SPF over 50 while [...] please contact the office. I strongly encourage [employer] sign ups. It can facilitate communication flow. Please contact the office for instructions on signing up. Risk for falls 06/16/2020 Assessment & Plan (11/08/2023 1:49 PM CDT): Patient at risk for falls due to age and co morbidities. Fall prevention discussed c patient in detail. Exercises for balance and coordination, keep LE muslces toned and strong. Assessment & Plan (06/27/2022 11:05 AM COLLATOR): Patient at risk for falls due to age and co morbidities. Fall prevention discussed c patient in detail. Exercises for balance and coordination, keep LE muslces toned and strong. Assessment & Plan (06/16/2020 3:46 PM COLLATOR): Patient at risk for falls due to age and co morbidities. Fall prevention discussed c patient in detail. Exercises for balance and coordination, keep LE muslces toned and strong. Cyst, dermoid, leg, right 02/12/2019 Overview (03/02/2020): [place] size (peanut M&M size) Assessment & Plan (02/12/2019 2:05 PM CDT): Observe, call if gets bigger May need this surgically removed BMI 29.0-29.9,adult 10/22/2018 Assessment & Plan (10/24/2022 3:44 PM CDT): No longer in obesity Just overweight at this time Needs to lose more weight Assessment & Plan (06/27/2022 11:05 AM COLLATOR): Cont working on wt loss Exercise more Assessment & Plan (02/21/2022 12:03 PM CDT): Improving gradually Assessment & Plan (12/01/2021 11:09 AM CDT): Cont to work on wt loss Cont metformin, trulicity and dm control Assessment & Plan (08/23/2021 2:19 PM COLLATOR): Work on attempts to lose weight about 1 lb a week. Join a wt loss program if necessary. Try to reach for BMI under 30. Exercise regularly, Limit carbs and sugars. Control portion intake. Consume 6-8 8oz glasses of water daily. BMI Follow-up includes: nutrition counseling, exercise counseling and education provided. Assessment & Plan (06/16/2020 3:56 PM COLLATOR): Cont to Work on attempts to lose [...] yrs Assessment & Plan (06/16/2020 3:51 PM COLLATOR): Due for ff up colonoscopy, due to [...] metformin Assessment & Plan (05/13/2024 10:57 AM COLLATOR): Improving Now A1c down to 6.1 Appetite [...] lbs Assessment & Plan (06/27/2022 11:22 AM COLLATOR): Controlled Better is now 6.3 down from [...] 3mos Assessment & Plan (08/23/2021 6:44 PM COLLATOR): a1c is improved since on trulicity a1c [...] exercise Assessment & Plan (06/16/2020 3:57 PM COLLATOR): Controlled, a1c 7.5% Cont diabetic diet Cont current regimen invokana, glucotrol and metformin Assessment & Plan (03/02/2020 10:48 AM CDT): a1c 8% not controlled can do better Avoid fast foods, keep carb intake lower Ff diabetic diet a1c in 3mos Assessment & Plan (08/28/2019 11:10 AM COLLATOR): Diabetes is overall controlled Cont on invokana, [...] Routine diabetic foot care recommended with a audioprosthologist Inspect feet on a regular basis report [...] 05/04/2017 Assessment & Plan (08/23/2021 2:13 PM COLLATOR): Stable Cont same regimen Tylenol prn Primary [...] pathology. Assessment & Plan (05/13/2024 11:06 AM COLLATOR): Stable BP Cont same regimen Last echo [...] stable. Assessment & Plan (06/27/2022 11:04 AM COLLATOR): bp controlled K better since stopping indapamide due to low K Assessment & Plan (02/21/2022 12:00 PM CDT): bp controlled Will stop indapamide due to low K Stop K 3 days later If gets edema from amlodipine, will try spirinolactone Assessment & Plan (12/01/2021 11:08 AM CDT): Controlled Cont same regimen Assessment & Plan (08/23/2021 6:42 PM COLLATOR): Stable. Continue current regimen. Follow low sodium [...] stable. Assessment & Plan (06/16/2020 3:52 PM COLLATOR): bp controlled Cont low sodium deit Assessment [...] stable. Assessment & Plan (08/28/2019 11:07 AM COLLATOR): Follow low sodium DASH Diet. Exercise regularly [...] Dyslipidemia associated with type 2 diabetes mellitus ([facility]) 10/22/2015 Overview (03/02/2020): lovastatin Assessment & Plan (05/13/2024 11:07 AM COLLATOR): Follow step 1 low cholesterol diet/ Mediterranean [...] Controlled. Assessment & Plan (06/27/2022 11:04 AM COLLATOR): Stable on lovastatin Cont same dose Ff low chol diet Assessment & Plan (02/21/2022 7:16 PM CDT): Stable on lovastatin Cont same dose Ff low chol diet Assessment & Plan (12/01/2021 11:08 AM CDT): Improving Cont statin Cont trulicity Assessment & Plan (08/23/2021 6:42 PM COLLATOR): Stable on lovastatin therapy. Follow low-cholesterol diet Assessment & Plan (04/12/2021 10:54 AM CDT): Cont on statin medication for stroke and ME prevention Assessment & Plan (01/04/2021 12:26 PM [...] regimen. Assessment & Plan (06/16/2020 3:52 PM COLLATOR): Chol controlled Follow low chol diet Assessment [...] regimen. Assessment & Plan (08/28/2019 11:06 AM COLLATOR): Follow step 1 low cholesterol diet. Report [...] 10/22/2015 Assessment & Plan (05/13/2024 11:07 AM COLLATOR): Cont current rx levothyroxine medication dose is [...] hoarseness Assessment & Plan (06/27/2022 11:04 AM COLLATOR): Cont thyroid at same dose Will adjust [...] hoarseness Assessment & Plan (08/23/2021 6:42 PM COLLATOR): Patient currently euthyroid. Continue current dosage. Assessment [...] hoarseness Assessment & Plan (06/16/2020 3:51 PM COLLATOR): Stable Cont current dose Assessment & Plan (03/02/2020 10:33 AM CDT): Cont current dose is euthyroid Report if has frequent palpitations, irreg heart beat or sudden changes in weight. Report if develops problem swallowing or hoarseness tsh due in 3 mos Assessment & Plan (08/28/2019 11:07 AM COLLATOR): Cont current dose is euthyroid Report if [...] IPMN Assessment & Plan (06/16/2020 3:57 PM COLLATOR): Patient to see dr Boyd at [facility] Assessment & Plan (08/28/2019 11:09 AM COLLATOR): Patient may be due for another endoscopic US for ff up. Has seen Dr Boyd and Dr Guzmán in the past. Might need to see a specialist at [facility] that takes humana. Assessment & Plan (06/03/2019 12:42 PM COLLATOR): Endoscopic US 05/2013 Dr Boyd, seen dr Nathan Georges in consultation. In 2013 had ff up Endoscopic US by dr Guzmán, was again unchanged. 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 CEA and CA 19-9 normal 2012. Patient previously told to follow up with Dr. Georges, but she is not sure how. Requests to see GI at [facility]. Assessment & Plan (10/22/2018 2:22 PM CDT): Cont to monitor. Pt will need to call Dr Georges office and inquire if can ff up be done by a siteman dr in [facility]. 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 Atypical chest pain 06/26/2013 10/23/19 19 Overview (10/14/2016): Atypical chest pain Encounters Date Type Department Care Team Description 09/24/2024 Telephone [facility] Cardiology [address] [place] [phone] Vladimir Isaac MD 09/19/2024 Telephone [facility] Primary Care [address] [place] [phone] Floresita Samaniego MD Test Results 09/13/2024 Orders Only [facility] Health Information Management [address] [place] [phone] Scanning, Provider 09/06/2024 Telephone [facility] [address] [place] [phone] Floresita Samaniego MD Medical Question/Miscellaneou s 09/04/2024 3:30 PM COLLATOR Office Visit [facility] [address] [place] [phone] Daria Ferraro NP Type 2 diabetes mellitus with diabetic polyneuropathy, without long-term current use of insulin (HCC) (Primary Dx); Essential hypertension; Dyslipidemia associated with type 2 diabetes mellitus (HCC); Acquired hypothyroidism; Hypertension associated with type 2 diabetes mellitus (HCC); Hearing difficulty of both ears; Chronic fatigue; Malignant neoplasm of upper-inner quadrant of right breast in female, estrogen receptor positive (HCC); Nasal dryness; Irregular bowel habits 08/19/2024 9:41 AM COLLATOR - 08/19/2024 11:59 PM COLLATOR Hospital Encounter [facility] [address] [place] [phone] Discharge Disposition: Discharge to home or self care 08/19/2024 9:40 AM COLLATOR - 08/19/2024 11:59 PM COLLATOR Hospital Encounter [facility] [address] [place] [phone] Discharge Disposition: Discharge to home or self care 08/19/2024 9:40 AM COLLATOR - 08/19/2024 11:59 PM COLLATOR Hospital Encounter [facility] [address] [place] [phone] Discharge Disposition: Discharge to home or self care 08/19/2024 9:40 AM COLLATOR - 08/19/2024 11:59 PM COLLATOR Hospital Encounter [facility] [address] [place] [address] Irregular heart beat; Systolic murmur; Dyslipidemia associated with type 2 diabetes mellitus (CMS/HCC) (HCC); Essential hypertension; Atrial premature depolarization; Coronary artery calcification seen on CT scan; Exertional dyspnea; Abnormal EKG; Pulmonary hypertension (HCC) Discharge Disposition: Discharge to home or self care 08/15/2024 Telephone [facility] Primary Care [address] [place] [phone] Floresita Samaniego MD lab orders; Medical Question/Miscellaneou s from Last 3 Months Immunizations Immunization Administration Dates Next Due Influenza, Quadrivalent, Hig h Dose, Preservative Free, Intrr 05/03/2023,06/29/2022,04/12/2021,04/04,04/04/2020 Influenza, Trivalent, High D ose, Split, Preservative Free, Intramuscular 04/15/2024,04/28/2019,04/28/2019,04/17,04/17/2018,04/10/2017,04/10/2017 ,04/28/2016 Influenza, Trivalent, IM (MDV) 03/04/2015 Influenza, Unspecified 06/29/2022 Pfizer SARS-CoV-2 Monovalent Vaccination (12+ Yrs) PURPLE 10/02/2020,09/11/2020 Pneumococcal Conjugate PCV 13 02/07/2015 Pneumococcal Polysaccharide PPV23 03/02/2020, Tetanus toxoid, adsorbed 05/26/2011 ZOSTER LIVE 11/22/2010 Surgical History Surgery Date Site/Laterality Comments THYROIDECTOMY 2010 BREAST SURGERY lump on nipple left GALLBLADDER SURGERY UTERINE SUSPENSION APPENDECTOMY HYSTERECTOMY 07/10/1976 total BREAST BIOPSY Left BREAST BIOPSY 2022 Right US GUIDED BIOPSY LYMPH NODE SUPERFICIAL LEFT 2022 N/A Medical History Medical History Date Comments Hypertension Hypertension Hyperlipidemia Hyperlipidemia Diabetes mellitus (HCC) Diabetes Fall Serum calcium elevated 03/02/2020 Normal de xa scan 02/26 Influenza A 10/19/2021 Tested positive 10/19/2021 Awareness under anesthesia after pancreatic biopsy Varicella Heart murmur Family History Medical History Relation Name Comments Diabetes type II Brother 2 Diabetes Ty pe II; Brain cancer Father Brain tumor; Ca use of : Brain tumor Breast cancer Maternal cousin Alzheimer's disease Mother Alzheime r's Disease; Cause of : Alzheimer's Disease Stroke Mother Breast cancer Mother's Sister Breast cancer Niece Maternal Hypertension Sister 2 Hypertension; Relation Name Status Comments Brother 1 Alive Brother 2 Father (Age 67) Maternal cousin Alive Mother (Age 85) Mother's Sister Niece Maternal Alive Sister 1 Alive Sister 2 Social History Tobacco Use Types Packs/Day Years Used Date Smoking Tobacco: Never Smokeless Tobacco: Never Tobacco Cessation:Counseling Given: Not Answered Alcohol Use Standard Drinks/Week Comments Yes 0 (1 standard drink = 0.6 oz pur e alcohol) [facility] Utilities Answer Date Recorded In the past 12 months has e [employer], gas, oil, or water [employer] threatened to shut off services in your [...] 02/07/2024 How often do you attend chur ch or zoroastrianism services? 1 to 4 times per year 02/07/2024 Do you belong to any clubs o r organizations such as baptist groups, unions, fraternal or athletic groups, or [...] you are drinking? Patient does not drink Q3: How often do you have si [...] any time in the past 12 m [facility], were you homeless or living in a nursing home (including now)? No 02/07/2024 Personal Safety Answer Date Recorded Have you ever been in or are you currently in a harmful physical or emotional relationship or is someone making you feel afraid or unsafe? Denies 02/06/2024 Comments No Sex and Gender Information Value Date Recorded Sex Assigned at Not on file Legal Sex Female 7:57 PM COLLATOR Gender Identity Not on file Sexual Orientation Not on file Obstetrics History Para Term AB IAB SAB Ectopic Multiple Livin g Live Births 2 2 2 Date Outcome GA Total Labor Labor/2nd/3rd Weight Sex Type Anes PTL Calista A1 A5 Name Clin Term Term Last Filed Vital Signs Vital Sign Reading Time Taken Comments Blood Pressure 140/70 09/04/2024 3:07 PM COLLATOR Pulse 94 09/04/2024 3:07 PM COLLATOR Temperature 36.4 C (97.5 F) 09/04/2024 3:07 PM COLLATOR Respiratory Rate 18 02/14/2024 4:09 PM CDT Oxygen Saturation 97% 09/04/2024 3:07 PM COLLATOR Inhaled Oxygen Concentration - - Weight 76.2 kg (168 lb) 09/04/2024 3:07 PM COLLATOR Height 162.6 cm (5' 4.02 ) 09/04/2024 3:07 PM CS T Body Mass Index 28.82 09/04/2024 3:07 PM COLLATOR Plan of Treatment Health Maintenance Due Date Last Done Comments Hepatitis B Screening 1963 Zoster Vaccine (1 of 2) 01/17/2011 11/22/2010 Covid-19 Vaccine ( season) 2024 01/20/2022, 05/05/2021, 10/02/2020, Additional history exists Albumin Creatinine Ratio, Urine 10/30/2024 10/31/2023, 01/05/2023, 02/15/2022, Additional history exists Lipid Panel 10/30/2024 10/31/2023, 12/09, 11/24/2021, Additional history exists Well Visit 65+ 11/07/2024 11/08/2023, 06/09, 06/16/2020, Additional history exists Fall Risk Assessment 02/07/2025 02/08/2024, 11/08/2023, 06/27/2022, Additional history exists Hemoglobin A1C 03/04/2025 09/04/2024, 04/10, 02/06/2024, Additional history exists Dilated Eye Exam 05/13/2025 04/10/2023, 10/2021, 07/20/2020, Additional history exists Postponed from 04/10/2024 (Patient declined, but will receive in the future) Foot Exam 05/13/2025 05/13/2024, 10/2023, 05/03/2023, Additional history exists eGFR 07/12/2025 07/12/2024, 10/2023, 05/02/2024, Additional history exists Depression Screening 09/04/2025 09/04/2024, 05/13/2024, 02/14/2024, Additional history exists Osteoporosis Screening-Bone Density Scan 10/25/2028 10/26/2023, 02/11/2020, 02/11/2020, Additional history exists DTaP/Tdap/Td Vaccine Discontinued 05/26/2011 Hepatitis C Screening Completed 05/19/2014 Pneumococcal vaccine 65+ Completed 020, 02/07/2015, 10/07/2010 Colon Cancer Screening-CT Colonography Discontinued 11/19/2020, 04/05/2017 Colon Cancer Screening-Colonoscopy Discontinued 11/19/2020, 04/05/2017 Colon Cancer Screening-DNA Stool Discontinued 11/19/2020, 04/05/2017 Colon Cancer Screening-FIT Discontinued 11/19/2020, Colon Cancer Screening-FOBT Discontinued 11/19/2020, 04/05/2017 Colon Cancer Screening-Sigmoidoscopy Discontinued 11/19/2020, 04/05/2017 Colorectal Cancer Screening Discontinued Breast Cancer Screening-Mammogram Discontinued 03/17/2022, 02/17/2021, 02/11/2020, Additional history exists Influenza Vaccine Completed 04/15/2024, , 06/29/2022, Additional history exists Medical Devices Implanted Type Area Bioinformatics Specialist Device Identifier Shelf Expiration Date Model / Serial / Lot [employer] Mammomark Cormark Tissue Bowtie Marker Breast Biopsy Collagen [id number] - [id number] Implanted:Qty: 1 on 2022 at [facility] [employer] [id number] 04/02/2023 [id number] / / [id number] [place] [employer] Ultracor Twirl Bard 17ga 10cm Rigid Needle Radiopaque Tissue Ring Latex Free Uctw17 - [id number] Implanted:Qty: 1 on 2022 at [facility] [employer] [id number] / / Procedures Procedure Name Priority Date/Time Associated Diagnosis Comments THYROID FUNCTION CASCADE Routine 09/13/2024 10:48 AM COLLATOR Acquired hypothyroidism SCAN - LABS 09/13/2024 POCT HEMOGLOBIN A1C Routine 09/04/2024 4:00 PM COLLATOR Type 2 diabetes mellitus with diabetic polyneuropathy, without long-term current use of insulin (HCC) STRESS TEST FOR DUAL READ Schedule Routine, Read Routine (OP Routine) 08/19/2024 1:03 PM COLLATOR Irregular heart beat Systolic murmur Dyslipidemia associated with type 2 diabetes mellitus (CMS/HCC) (HCC) Essential hypertension Atrial premature depolarization Coronary artery calcification seen on CT scan Exertional dyspnea Abnormal EKG Pulmonary hypertension (HCC) NM MPI SPECT (REST AND/OR STRESS) MULTIPLE STUDIES Schedule Routine, Read Routine (OP Routine) 08/19/2024 1:03 PM COLLATOR Irregular heart beat Systolic murmur Dyslipidemia associated with type 2 diabetes mellitus (CMS/HCC) (HCC) Essential hypertension Atrial premature depolarization Coronary artery calcification seen on CT scan Exertional dyspnea Abnormal EKG Pulmonary hypertension (HCC) MAGNESIUM Routine 07/12/2024 9:16 AM COLLATOR Irregular heart beat Systolic murmur Dyslipidemia associated with type 2 diabetes mellitus (CMS/HCC) (HCC) Essential hypertension Atrial premature depolarization Coronary artery calcification seen on CT scan Exertional dyspnea Abnormal EKG Pulmonary hypertension (HCC) BASIC METABOLIC PANEL Routine 07/12/2024 9:16 AM COLLATOR Irregular heart beat Systolic murmur Dyslipidemia associated [...] HEPATITIS C ANTIBODY Routine 05/19/2014 10:55 AM COLLATOR from Last 3 Months or Most Recently Relevant to Health Maintenance Results * Thyroid Function [place] (09/13/2024 10:48 AM COLLATOR) TSH 2.17 0.40 - 4.50 mIU/L [facility] Blood 09/13/2024 10:4 8 AM COLLATOR 09/13/2024 10:48 AM COLLATOR Daria Ferraro NP LAB BLOOD ORDERABLES Final R esult [facility] [address] [place] [address] * SCAN - LABS (09/13/2024) us Provider Scanning Final Result * POCT hemoglobin A1c (09/04/2024 4:00 PM COLLATOR) Pathologist [facility] Hemoglobin A1C, POC 6.5 4.0 - 5.6 % Blood spot 09/04/2024 4:00 PM COLLATOR Daria Ferraro GEOPHYSICAL PROSPECTING SURVEYOR POINT OF CARE TEST ORDERABLE S Final Result * NM MPI SPECT (Rest and/or Stress) Multiple Studies (08/19/2024 1:03 PM COLLATOR) Anatomical Region Laterality Modality Body N/A Nuclear Medicine Addenda Addendum by Vladimir Isaac MD on 08/20/2024 10:37 PM COLLATOR Study date corrected to 08/19/2024 Impressions 08/20/2024 10:18 PM COLLATOR 1. No scintigraphic evidence of myocardial ischemia. 2. Normal left ventricular size and systolic function. I personally supervised and interpreted the stress test. Copy to Floresita Samaniego MD John Lehman, MD 08/20/2024 Narrative 08/20/2024 10:18 PM COLLATOR Patient Id: Marilynn Barker is a 79 y.o. female. MR#: [id number] Study date: 08/20/2024 EXAM DESCRIPTION: NM MPI [...] with calculated TID ratio of 1.04 . us Vladimir Isaac MD G NM PROCEDURES Edited R esult - Final * Stress Test for Myocardial Perfusion (08/19/2024 1:03 PM COLLATOR) Anatomical Region Laterality Modality Nuclear Medicine Impressions 08/19/2024 12:28 PM COLLATOR 1. EKG portion of the stress test is negative for ischemia. 2. Nuclear images pending. I personally supervised and interpreted the stress test. Copy to Floresita Samaniego MD John Lehman, MD 08/19/2024 Narrative 08/19/2024 12:28 PM COLLATOR Patient Id: Marilynn Barker is a 79 y.o. female. MR#: [id number] Study date: 08/19/2024 EXAM DESCRIPTION: STRESS LEXISCAN [...] Barker is a 79 y.o. female. MR#: [id number] Study date: 08/19/2024 EXAM DESCRIPTION: STRESS LEXISCAN [...] Final Result * Magnesium (07/12/2024 9:16 AM COLLATOR) Magnesium 1.6 1.5 - 2.5 mg/dL [facility] Blood 07/12/2024 9:16 AM COLLATOR 07/12/2024 9:17 AM COLLATOR us Vladimir Isaac MD LAB BLOOD ORDERABLES Final Result Performing Organization Address [facility] Co de Phone Number [facility] [address] [place] [address] * (ABNORMAL) Basic metabolic panel (07/12/2024 9:16 AM COLLATOR) Glucose 140(H) 65 - 99 mg/dL [facility] [...] [facility] Blood 07/12/2024 9:16 AM COLLATOR 07/12/2024 9:17 AM COLLATOR us Vladimir Isaac MD LAB BLOOD ORDERABLES Final Result Performing Organization Address [facility]/ZIP Co de Phone Number [facility] [address] [place] [address] * (ABNORMAL) Albumin Creatinine Ratio, Urine (10/31/2023 [...] 11/01/2023 4:44 PM CDT FASTING:YES FASTING: YES us Floresita Samaniego MD LAB URINE ORDERABLES Final R esult [facility] [address] [place] [address] * (ABNORMAL) Lipid panel (10/31/2023 8:58 AM CDT) Cholesterol 119 <200 mg/dL [facility] [...] factors. LDL-C is now calculated using the Sarwat-Suzanna calculation, which is a validated novel method providing better accuracy than the Friedewald equation in the estimation of LDL-C. Sarwat SS et al. NATALEE. 2013;310(19): 1012-4805 (http://education.B-152/faq/BWK389) Chol/HDL ratio 2.6 <5.0 (calc) [facility] [...] 11/01/2023 4:44 PM CDT FASTING:YES FASTING: YES us Floresita Samaniego MD LAB BLOOD ORDERABLES Final R esult [employer] [facility] [address] [place] [address] * Dexa Axial Skeleton Bone Density 1 [...] vitamin-D, calcium, Fosamax and hormone replacement therapy. Bioinformatics Specialist/Model: [employer] A (S/N [id number]) CLINICAL INFORMATION: Current height: 63.5 inches Maximum [...] Beverly Rizzo M.D. TW: TW Report ID: [id number] Reading Location: [id number] Procedure Note Beverly Rizzo MD - 10/26/2023 EXAM DESCRIPTION: DEXA AXIAL SKELETON BONE DENSITY 1 OR MORE SITES REASON FOR STUDY: 78 y/o year old F with given history of: Post menopausal status. History of prior fracture. Patient has taken/istaking vitamin-D, calcium, Fosamax and hormone replacement therapy. Bioinformatics Specialist/Model: [employer] A (S/N [id number]) CLINICAL INFORMATION: Current height: 63.5 inches Maximum [...] Beverly Rizzo M.D. TW: TW Report ID: [id number] Reading Location: [id number] Floresita Samaniego MD IMG DXA PROCEDURES Final [...] indeterminate masses in the inner right breast, eja-am-esqjgcfod depth ,and outer right breast, middle depth. No suspicious findings or suspicious changes are seen within either breast. Self Screening Mammogram IMG MAMMO PROCEDURES Fi nal Result * COLONOSCOPY (11/19/2020) Historical Provider MD HEALTH MAINTENANCE Final Result * Hepatitis C antibody (05/19/2014 10:55 AM COLLATOR) Hep C Ab NONREACT NONREACTIVE 05/19/2014 12:41 PM COLLATOR [facility] HISTORICAL RESULTS Comment: [employer] using MITCHELL (chemiluminescent immunoassay) technology. NONREACTIVE: Antibodies [...] Hepatitis C detected. 05/19/2014 10:5 5 AM COLLATOR 05/19/2014 11:00 AM COLLATOR Floresita Samaniego MD LAB MICROBIOLOGY - GENERAL O RDERABLES Final Result [facility] HISTORICAL RESULTS from Last 3 Months or Most Recently Relevant to Health Maintenance Insurance [place] [address] [place] [address] [employer] HMO Advance Directives For more information, please contact: [phone] * Full Code (Latest Code Status on File) Date Activated Date Inactivated Comments 02/06/2024 12:45 PM 02/08/2024 6:23 PM * Full Code Date Activated Date Inactivated Comments 07/14/2022 5:59 PM 07/15/2022 8:31 PM Care Teams 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
[2024-10-10 15:51] LABS: Iron 77 ug/dL (37-170)
[2024-10-10 16:00] LABS: Percent Iron Saturation 21 % (20-50)
[2024-10-10 16:11] LABS: Alanine Aminotransferase 15 U/L (6-35); Albumin Level 4.5 g/dL (3.5-5.1); Alkaline Phosphatase 61 U/L (38-126); Anion Gap 12 mmol/L (4-12); Aspartate Amino Transferase 25 U/L (14-36); Bilirubin,Total 1.1 mg/dL (0.2-1.3); Blood Urea Nitrogen 19 mg/dL (7-17); Calcium 10.5 mg/dL (8.4-10.2); Carbon Dioxide 28 mmol/L (22-30); Chloride 102 mmol/L (98-107); Estimated Glomerular Filt Rate 53; Glucose 173 mg/dL (65-110); Potassium 3.6 mmol/L (3.4-5.0); Sodium 142 mmol/L (137-145)
[2024-10-10 17:14] LABS: Folic Acid > 20.0 ng/mL (2.76->20)
[2024-10-12 02:23] LABS: CA 15-3 <5 U/mL (<32)
== END 2024-10-10 13:26 | disposition home or self-care (01) ==
LOC: ANHLAB 13:25
PROVIDERS: PCP Internal Medicine; Visit Provider Internal Medicine Hematology & Oncology
DX: D64.9 Anemia, unspecified (principal); C50.911 Malignant neoplasm of unspecified site of right female breast; Z17.0 Estrogen receptor positive status [ER+]
CPT/HCPCS: 36415; 80053; 82607; 82728; 82746; 83540; 83550; 85025; 86300

== ENCOUNTER 2025-04-15 14:22 | Outpatient (CLI) | payer MEDICARE, SELFPAY ==
--- OUTSIDE RECORDS SUMMARY | 2010-04-16 09:30 | XMS_ITS | Continuity of Care Document ---
Author Organization [facility] [place] [address] [place] [address] [place] [address] Phone Care Team Providers Care Professor Criminal Justice Name Role Phone Good OD, Sudhakar Unavailable Unavailable Procedures Procedure Date Eye Exam & Treatment Refraction Eye Exam & Treatment Refraction Eye Exam & Treatment Refraction Eye Exam & Treatment Refraction Advance Directives Directive Yes / No Effective Date File Name No Information Encounters Encounter Description Practice Location Reason(s) For Visit Diagnoses Date Provider Providers Copied on Encounter [facility], [address] [place] [address] [address], [place], [place], [id number], [place] tel:[phone] [facility] No Information Oct-0 8-201 0 Good OD Sudhakar. [address] , [address], [place], [address], [place]. tel:[phone] [facility], [address] [place] [address] [address], [place], [place], [id number], [place] tel:[phone] [facility] No Information Oct-0 8-200 9 Good OD Sudhakar. [address] , [address], [place], [address], [place]. tel:[phone] Referring Provider: Berhane Haider, [address] [facility], [place], [address]. tel:[phone] [facility], [address] [place] [address] [address], [place], [place], [id number], [place] tel:[phone] [facility] No Information Oct-0 2-200 8 Good OD Sudhakar. [address] [facility] , [address], [place], [address], [place]. tel:[phone] [facility], [address] [facility] [address], [place], [place], [id number], tel:[phone] [facility] No Information Sep-0 4-200 7 Good OD Sudhakar. [address] [facility] , [address], [place], [address], [place]. tel:[phone] Referring Provider: Berhane Haider, [address] [place], [address]. tel:[phone] Family History Family Member Type Diagnosis Age At Onset No Information Payers Payer name Insurance type Covered constitution party ID Authoriza tion(s) No Information Social History Type Description Quantity Date Captured Comments Sex Female Smoking Status No Information Chief Complaint And Reason For Visit No Information Reason For Referral Reason For Referral No Information History Of Present Illness Encounter Date Complaint History Of Prese nt Illness No Information Functional Status Date Functional Assessmen t No Information Instructions Date Instruction Additional Infor mation No Information Assessments Type Assessment Date No Information Patient Care Teams Name Effective Dates (start - stop) Status Members No Information
[2025-04-15 14:35] LABS: Hematocrit 36.0 % (37.0-47.0); Hemoglobin 11.5 g/dL (12.0-15.0); Immature Granulocyte Percent A 0.3 % (0-0.5); Lymphocytes Absolute Auto 1.13 K/mm3 (0.9-3.2); Mean Corpuscular HGB Conc 31.9 g/dl (32-36); Mean Corpuscular Hemoglobin 29.9 pg (26-34); Mean Corpuscular Volume 93.5 fl (80-100); Nucleated Red Blood Cells Absolute Auto 0.000 K/mm3 (0.0-0.012); Nucleated Red Blood Cells Perc 0.0 % (0.0-0.2); Platelet Count Result 267 k/mm3 (150-375); Red Blood Count 3.85 M/mm3 (4.2-5.4); White Blood Count 7.4 K/mm3 (4.5-10.0)
--- OUTSIDE RECORDS SUMMARY | 2025-04-15 15:18 | XMS_ITS | Clinical Summary ---
Author Organization [facility] Address [address] [place] [address] Care Team Providers Care Rehanger Name Role Phone Floresita Samaniego MD Primary Care Provider + [phone] Saulo Narayan OD Unavailable + [phone] Darci Connolly DPM Unavailable [phone] Laith Ortiz MD Unavailable Francisco Gtz MD Unavailable [phone] Allergies Active Allergy Reactions Criticality Noted Date [...] of insulin (HCC) USE DIRECTED 1 each 12/15/19 23 Active polyethylene glycol (MIRALAX) 17 gram/dose bulk powder Take 17 g by mouth daily as needed Active pen needle, diabetic 31 gauge x 5/16 needleIndication s:Type 2 diabetes mellitus with diabetic polyneuropathy, without long-term current use of insulin (HCC) Use to inject trulicity once weekly 100 each 1 05/03/20 23 Active vitamin D96-bdpos acid 0.5-1 mg tablet Take 1 tablet by mouth every morning Active iron bisgly,ps-FA-B-C #12-succ 65 mg-65 mg -1,000 mcg (24) tablet Take by mouth every other day Active lovastatin (MEVACOR) 10 mg tablet TAKE 1 TABLET EVERY NIGHT 90 tablet 3 06/10/20 24 Active lancets (Accu-Chek Softclix Lancets) miscIndications: Type 2 diabetes mellitus with diabetic polyneuropathy, without long-term current use of insulin (HCC) TEST TWO TIMES DAILY 200 each 1 06/07/20 24 Active blood glucose diagnostic (Accu-Chek Guide test strips) stripIndications :Type 2 diabetes mellitus with diabetic polyneuropathy, without long-term current use of insulin ([facility]) TEST TWO TIMES DAILY 200 strip 1 06/07/20 24 Active magnesium oxide (MAG-OX) 250 mg (150.8 mg elemental) tabletIndication s:hypomagnesemia 1 tablet (250 mg total) daily Active aspirin 81 mg enteric coated tabletIndication s:Myocardial Reinfarction Prevention Take 1 tablet (81 mg total) by mouth daily 90 tablet 3 07/01/20 24 Active alcohol swabs (DropSafe Alcohol Prep Pads) pads, medicated USE TWICE DAILY DIRECTED. 200 each 3 08/22/19 25 Active glipiZIDE XL (GLUCOTROL XL) 2.5 mg 24 hr tablet TAKE 1 TABLET EVERY DAY 90 tablet 3 10/22/19 25 Active potassium chloride ER 10 mEq CR tabletIndication s:Low blood potassium TAKE 1 TABLET EVERY DAY 90 tablet 3 11/23/19 25 Active levothyroxine (SYNTHROID) 75 mcg tablet TAKE 1 TABLET EVERY DAY 90 tablet 3 01/16/20 25 Active amLODIPine (NORVASC) 10 mg tablet TAKE 1 TABLET EVERY DAY 90 tablet 3 01/16/20 25 Active hydrALAZINE (APRESOLINE) 100 mg tablet TAKE 1 TABLET TWICE DAILY 180 tablet 3 03/14/20 25 Active meloxicam (MOBIC) 7.5 mg tablet Take 1 tablet (7.5 mg total) by mouth daily 90 tablet 3 03/14/20 25 026 Active metFORMIN XR (GLUCOPHAGE XR) 500 mg 24 hr tablet TAKE 2 TABLETS TWICE DAILY 360 tablet 3 03/31/20 25 Active Trulicity 4.5 mg/0.5 mL pen injector INJECT 4.5MG (0.5ML) UNDER THE SKIN ONCE A WEEK FRIDAYS 6 mL 04/02/20 25 Active metFORMIN XR (GLUCOPHAGE XR) 500 mg 24 hr tablet TAKE 2 TABLETS TWICE DAILY 360 tablet 3 02/21/20 24 025 Discontinued dulaglutide (Trulicity) 4.5 mg/0.5 mL pen injector Inject 0.5 mL (4.5 mg total) under the skin every 7 days Fridays 6 mL 3 05/21/20 24 025 Discontinued respiratory syncytial virus vaccine (Arexvy, PF,) 120 mcg/0.5 mL vaccine Inject 0.5 mL into the muscle as instructed once for 1 dose 0.5 mL 03/17/20 25 025 Active Problems Problem Noted Date Diagnosed Date Moderate major depression 03/17/2025 Assessment & Plan (03/17/2025 1:22 PM CDT): Does not have this Dx Sometimes feels blahh or sad Wrong dx Other osteoarthritis of spine 02/11/2025 Radicular syndrome of right leg 11/11/2024 Assessment & Plan (11/11/2024 1:46 PM CDT): Worsening R upper thigh at L3 level Rule out scoliosis and vertebral abnormality L spine xray Ncv/emg bilat LE Acquired varus deformity knee, left 11/11/2024 Assessment & Plan (11/11/2024 1:45 PM CDT): Affecting gait and spine alignment Likely why R thigh is hurting Chronic fatigue 09/04/2024 Atrial premature depolarization 07/01/2024 Coronary artery calcification seen on CT scan Exertional dyspnea 07/01/2024 Abnormal EKG 07/01/2024 Pulmonary hypertension 07/01/2024 Irregular heart beat 05/13/2024 Assessment & Plan (05/13/2024 5:30 PM MANUFACTURING ENGINEERING MANAGER): New finding today rule out AFib Reviewed [...] beats per minute. Similar tracing as in 202 but heart rate is much better and T-wave inversions in the lateral leads no longer seen. Will check potassium and magnesium levels TSH level is in range continue current dosage. Patient will need to get reestablished with a rod cup filler. Will make referral. Essential hypertension 02/06/2024 Assessment & Plan (11/11/2024 1:27 PM CDT): Bp stable Cont same regimen Ff low sodium diet Eat K rich foods Assessment & Plan (05/13/2024 11:09 AM MANUFACTURING ENGINEERING MANAGER): Bp stable Cont same regimen Ff low [...] and upper limb lymph nodes 11/08/2023 Overview (03/17/2025): 05/2022 diagnosed Stage 2, 2 positive axillary LNs S/p R mastectomy, no reconstruction, Dr Ortiz surgeon and Onc Dr Razo No radiation or chemo needed Assessment & Plan (03/17/2025 1:20 PM CDT): 05/2022 diagnosed with breast cancer, with axillary positive LN Stage 2, 2 positive axillary LNs S/p R mastectomy, no reconstruction, Dr [...] Dr Razo No radiation or chemo needed S/P right mastectomy 07/26/2022 Assessment & Plan (10/24/2022 3:45 PM CDT): Sec to stage 2 breast cancer Cont on arimidex Malignant neoplasm of upper- inner quadrant of right breast in female, estrogen receptor positive 06/09/2022 Cancer Staging:Clinical:Stage IB(cT1c, cN1, cM0, G1, ER+, OH+, HER2-) - Signed by Francisco Candelario MD PhD on 06/17/2022 Pathologic stage from 07/20/2022:Stage IA(pT1c(2), pN1, cM0, G1, ER+, OH+, HER2-) - Signed by Daisha Sam NP [...] yrs Assessment & Plan (06/27/2022 11:07 AM MANUFACTURING ENGINEERING MANAGER): Recent dx, ongoing Cont under care of surgeon, oncology and radiation oncology for plan of care Annual physical exam 06/16/2020 Assessment & Plan (11/11/2024 1:28 PM CDT): Reviewed previous labs and diagnostic [...] and establishing or updating healthcare power of document review attorney document and providing our office with a copy. Assessment & Plan (11/08/2023 1:49 PM CDT): [...] and establishing or updating healthcare power of document review attorney document and providing our office with a copy. Assessment & Plan (06/27/2022 11:04 AM MANUFACTURING ENGINEERING MANAGER): Reviewed previous labs and diagnostic test results. [...] and establishing or updating healthcare power of document review attorney document and providing our office with a copy. Assessment & Plan (06/16/2020 3:46 PM MANUFACTURING ENGINEERING MANAGER): Wear sunscreen with SPF over 50 while [...] Risk for falls 06/16/2020 Assessment & Plan (11/11/2024 1:28 PM CDT): Patient at risk for falls due to age and co morbidities. Fall prevention discussed c patient in detail. Exercises for balance and coordination, keep LE muslces toned and strong. Assessment & Plan (11/08/2023 1:49 PM CDT): Patient at risk for falls due to age and co morbidities. Fall prevention discussed c patient in detail. Exercises for balance and coordination, keep LE muslces toned and strong. Assessment & Plan (06/27/2022 11:05 AM MANUFACTURING ENGINEERING MANAGER): Patient at risk for falls due to age and co morbidities. Fall prevention discussed c patient in detail. Exercises for balance and coordination, keep LE muslces toned and strong. Assessment & Plan (06/16/2020 3:46 PM MANUFACTURING ENGINEERING MANAGER): Patient at risk for falls due to age and co morbidities. Fall prevention discussed c patient in detail. Exercises for balance and coordination, keep LE muslces toned and strong. Cyst, dermoid, leg, right 02/12/2019 Overview (03/02/2020): [place] size (peanut M&M size) Assessment & Plan (02/12/2019 2:05 PM CDT): Observe, call if gets bigger May need this surgically removed BMI 28.0-28.9,adult 10/22/2018 Assessment & Plan (10/24/2022 3:44 PM CDT): No longer in obesity Just overweight at this time Needs to lose more weight Assessment & Plan (06/27/2022 11:05 AM MANUFACTURING ENGINEERING MANAGER): Cont working on wt loss Exercise more Assessment & Plan (02/21/2022 12:03 PM CDT): Improving gradually Assessment & Plan (12/01/2021 11:09 AM CDT): Cont to work on wt loss Cont metformin, trulicity and dm control Assessment & Plan (08/23/2021 2:19 PM MANUFACTURING ENGINEERING MANAGER): Work on attempts to lose weight about 1 lb a week. Join a wt loss program if necessary. Try to reach for BMI under 30. Exercise regularly, Limit carbs and sugars. Control portion intake. Consume 6-8 8oz glasses of water daily. BMI Follow-up includes: nutrition counseling, exercise counseling and education provided. Assessment & Plan (06/16/2020 3:56 PM MANUFACTURING ENGINEERING MANAGER): Cont to Work on attempts to lose [...] yrs Assessment & Plan (06/16/2020 3:51 PM MANUFACTURING ENGINEERING MANAGER): Due for ff up colonoscopy, due to covid it is on hold Was due 05/[address] Sesay Type 2 diabetes mellitus wit h diabetic polyneuropathy, without long-term current use of insulin 11/02/2017 Overview (05/13/2024): Dilated eye exam 07/12/2019 Dr Narayan, OD. No Retinopathy, age related nuclear cataract Was on Invokana, glipizide, metformin changed to Trulicity, glipizide and metformin Assessment & Plan (03/17/2025 1:35 PM CDT): Now A1c is stable and improving down to 6.4 as of 03/17/2205 Wt cont to trend down overall Cont to test BS daily Runs in the low 100s No hypoglycemia but at times feels a little shakey Cont glipizide to 2.5 mg (used to take higher dose) Cont rx Trulicity at 4.5 mg weekly Cont Metformin at 1000 mg bid Stable Assessment & Plan (11/11/2024 1:47 PM CDT): Now A1c is stable Appetite is down Wt cont to trend down No recent prednisone therapy Cont to test BS daily Runs in the 90s No hypoglycemia but at times feels a little shakey Cont glipizide to 2.5 mg Cont rx Trulicity at 4.5 mg weekly Cont Metformin at 1000 mg bid Stable Assessment & Plan (05/13/2024 10:57 AM MANUFACTURING ENGINEERING MANAGER): Improving Now A1c down to 6.1 Appetite [...] lbs Assessment & Plan (06/27/2022 11:22 AM MANUFACTURING ENGINEERING MANAGER): Controlled Better is now 6.3 down from [...] 3mos Assessment & Plan (08/23/2021 6:44 PM MANUFACTURING ENGINEERING MANAGER): a1c is improved since on trulicity a1c [...] exercise Assessment & Plan (06/16/2020 3:57 PM MANUFACTURING ENGINEERING MANAGER): Controlled, a1c 7.5% Cont diabetic diet Cont current regimen invokana, glucotrol and metformin Assessment & Plan (03/02/2020 10:48 AM CDT): a1c 8% not controlled can do better Avoid fast foods, keep carb intake lower Ff diabetic diet a1c in 3mos Assessment & Plan (08/28/2019 11:10 AM MANUFACTURING ENGINEERING MANAGER): Diabetes is overall controlled Cont on invokana, [...] Routine diabetic foot care recommended with a squeegee operator Inspect feet on a regular basis report [...] mos Lumbar spondylosis 05/04/2017 Assessment & Plan (03/17/2025 1:11 PM CDT): Has OA by xray Doing better on rx meloxicam at 7.5 mg daily stable Assessment & Plan (11/11/2024 6:37 PM CDT): Suspect she has scoliosis acquired of the lumbar spine based on her posture and angulation of her hips right hip is higher than the left L-spine x-ray Nerve study Assessment & Plan (08/23/2021 2:13 PM MANUFACTURING ENGINEERING MANAGER): Stable Cont same regimen Tylenol prn Primary [...] of severe valvular pathology. Assessment & Plan (03/17/2025 1:34 PM CDT): Bp controlled Cont current rx amlodipine 10 mg daily and hydralazine 100 mg bid Assessment & Plan (11/11/2024 1:30 PM CDT): Stable BP Cont same regimen Last echo 01/2024 wnl Interpretation Summary Left ventricular systolic function is normal. Ejection Fraction = 55-60%. The left ventricular wall motion is normal. There is mild tricuspid regurgitation.Right ventricular systolic pressure is '37mmHg + RAP' mm/HG. Diastolic dysfunction, Grade II, consistent with elevated left atrial pressure. No evidence of severe valvular pathology. Assessment & Plan (05/13/2024 11:06 AM MANUFACTURING ENGINEERING MANAGER): Stable BP Cont same regimen Last echo [...] stable. Assessment & Plan (06/27/2022 11:04 AM MANUFACTURING ENGINEERING MANAGER): bp controlled K better since stopping indapamide due to low K Assessment & Plan (02/21/2022 12:00 PM CDT): bp controlled Will stop indapamide due to low K Stop K 3 days later If gets edema from amlodipine, will try spirinolactone Assessment & Plan (12/01/2021 11:08 AM CDT): Controlled Cont same regimen Assessment & Plan (08/23/2021 6:42 PM MANUFACTURING ENGINEERING MANAGER): Stable. Continue current regimen. Follow low sodium [...] stable. Assessment & Plan (06/16/2020 3:52 PM MANUFACTURING ENGINEERING MANAGER): bp controlled Cont low sodium deit Assessment [...] stable. Assessment & Plan (08/28/2019 11:07 AM MANUFACTURING ENGINEERING MANAGER): Follow low sodium DASH Diet. Exercise regularly [...] Dyslipidemia associated with type 2 diabetes mellitus ([facility]) 10/22/2015 Overview (03/02/2020): lovastatin Assessment & Plan (03/17/2025 1:36 PM CDT): Follow step 1 low cholesterol diet/ Mediterranean Diet. Recommend to continue with current Rx lovastastin 10 mg medication to lower and control cholesterol Controlled. Assessment & Plan (11/11/2024 1:28 PM CDT): Follow step 1 low cholesterol diet/ Mediterranean Diet. Recommend to continue with current Rx medication to lower and control cholesterol Controlled. Assessment & Plan (05/13/2024 11:07 AM MANUFACTURING ENGINEERING MANAGER): Follow step 1 low cholesterol diet/ Mediterranean [...] Controlled. Assessment & Plan (06/27/2022 11:04 AM MANUFACTURING ENGINEERING MANAGER): Stable on lovastatin Cont same dose Ff low chol diet Assessment & Plan (02/21/2022 7:16 PM CDT): Stable on lovastatin Cont same dose Ff low chol diet Assessment & Plan (12/01/2021 11:08 AM CDT): Improving Cont statin Cont trulicity Assessment & Plan (08/23/2021 6:42 PM MANUFACTURING ENGINEERING MANAGER): Stable on lovastatin therapy. Follow low-cholesterol diet Assessment & Plan (04/12/2021 10:54 AM CDT): Cont on statin medication for stroke and MO prevention Assessment & Plan (01/04/2021 12:26 PM [...] regimen. Assessment & Plan (06/16/2020 3:52 PM MANUFACTURING ENGINEERING MANAGER): Chol controlled Follow low chol diet Assessment [...] regimen. Assessment & Plan (08/28/2019 11:06 AM MANUFACTURING ENGINEERING MANAGER): Follow step 1 low cholesterol diet. Report [...] regimen. Acquired hypothyroidism 10/22/2015 Assessment & Plan (03/17/2025 1:21 PM CDT): Cont current rx levothyroxine medication dose is euthyroid Report if has frequent palpitations, irreg heart beat or sudden changes in weight. Report if develops problem swallowing or hoarseness Assessment & Plan (11/11/2024 1:28 PM CDT): Cont current rx levothyroxine medication dose is euthyroid Report if has frequent palpitations, irreg heart beat or sudden changes in weight. Report if develops problem swallowing or hoarseness Assessment & Plan (05/13/2024 11:07 AM MANUFACTURING ENGINEERING MANAGER): Cont current rx levothyroxine medication dose is [...] hoarseness Assessment & Plan (06/27/2022 11:04 AM MANUFACTURING ENGINEERING MANAGER): Cont thyroid at same dose Will adjust [...] hoarseness Assessment & Plan (08/23/2021 6:42 PM MANUFACTURING ENGINEERING MANAGER): Patient currently euthyroid. Continue current dosage. Assessment [...] hoarseness Assessment & Plan (06/16/2020 3:51 PM MANUFACTURING ENGINEERING MANAGER): Stable Cont current dose Assessment & Plan (03/02/2020 10:33 AM CDT): Cont current dose is euthyroid Report if has frequent palpitations, irreg heart beat or sudden changes in weight. Report if develops problem swallowing or hoarseness tsh due in 3 mos Assessment & Plan (08/28/2019 11:07 AM MANUFACTURING ENGINEERING MANAGER): Cont current dose is euthyroid Report if [...] IPMN Assessment & Plan (06/16/2020 3:57 PM MANUFACTURING ENGINEERING MANAGER): Patient to see dr Boyd at [facility] Assessment & Plan (08/28/2019 11:09 AM MANUFACTURING ENGINEERING MANAGER): Patient may be due for another endoscopic US for ff up. Has seen Dr Boyd and Dr Guzmán in the past. Might need to see a specialist at [facility] that takes human[employer]. Assessment & Plan (06/03/2019 12:42 PM MANUFACTURING ENGINEERING MANAGER): Endoscopic US 05/2013 Dr Boyd, seen dr Nathan Georges in consultation. In 2013 had ff up Endoscopic US by dr Guzmán, was again unchanged. 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 CEA and CA 19-9 normal 2012. Patient previously told to follow up with Dr. Georges, but she is not sure how. Requests to see GI at [facility]. Assessment & Plan (10/22/2018 2:22 PM CDT): Cont to monitor. Pt will need to call Dr Georges office and inquire if can ff up be done by a siteman dr in [facility]. Resolved Problems Problem Noted Date Diagnosed Date [...] IV abx and IVF Hypercalcemia 02/06/2024 05/13/2024 Malignant neoplasm metastatic to breast 09/07/2022 11/11/2024 Post-operative state 07/20/202210/24/ 023 Low blood potassium 02/21/2022 11/12/19 Assessment & Plan (05/13/2024 11:08 AM MANUFACTURING ENGINEERING MANAGER): Eat k rich foods Monitor, can cause [...] 1 week Eat foods rich in potassium Influenza A 10/19/2021 02/21/2022 Overview (10/20/2021): Tested positive 10/19/2021 History of recent fall 03/02/202006/16 Overview (03/02/2020): Fell at [facility], back spasm[facility] Assessment & Plan (03/02/2020 10:58 [...] PTHrp Assessment & Plan (06/16/2020 4:01 PM MANUFACTURING ENGINEERING MANAGER): Do not take calcium supplements 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 Musculoskeletal neck pain 02/12/2019 Assessment & Plan (02/12/2019 2:07 PM CDT): Neck exercises to reduce pain and reduce penitentiary problems Atypical chest pain 06/26/2013 10/23/19 19 Overview (10/14/2016): Atypical chest pain Encounters Date Type Department Care Team Description 04/14/2025 Orders Only [facility] [address] [phone] Laith Ortiz MD Screening mammogram for breast cancer (Primary Dx); Hx of breast cancer; History of right mastectomy 03/23/2025 Results Follow-Up [facility] [address] [place] [phone] Floresita Samaniego MD Albumin Creatinine Ratio, Urine 03/17/2025 1:00 PM CDT Office Visit [facility] [address] [place] [phone] Floresita Samaniego MD Type 2 diabetes mellitus with diabetic polyneuropathy, without long-term current use of insulin (HCC) (Primary Dx); Hypertension associated with type 2 diabetes mellitus (HCC); Dyslipidemia associated with type 2 diabetes mellitus (CMS/HCC) (HCC); Acquired hypothyroidism; Lumbar spondylosis; Moderate major depression (HCC); 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); Need for influenza vaccination 02/27/2025 Results Follow-Up [facility] [address] [place] [phone] Floresita Samaniego MD Comprehensive metabolic panel, Hemoglobin A1c, Urinalysis reflex to microscopic and culture Urine, clean voided, Additional followed-up results: 2 02/11/2025 2:00 PM CDT Office Visit [address] [phone] Daria Ferraro NP Right hip pain (Primary Dx); Burning with urination; Type 2 diabetes mellitus with diabetic polyneuropathy, without long-term current use of insulin (HCC); Other osteoarthritis of spine, lumbar region 02/11/2025 9:23 AM CDT - 02/11/2025 11:59 PM CDT Hospital Encounter [facility] Office Building [address] [address] Discharge Disposition: Discharge to home or self care 02/10/2025 Nurse Triage [address] [phone] Floresita Samaniego MD 01/13/2025 1:00 PM CDT Office Visit [facility] [address] [facility] [address] [phone] Vladimir Isaac MD Dyslipidemia associated with type 2 diabetes mellitus (CMS/HCC) (HCC) (Primary Dx); Essential hypertension; Pulmonary hypertension (HCC); Coronary artery calcification seen on CT scan; Atrial premature depolarization; Systolic murmur; Exertional dyspnea; Abnormal EKG; Hypertension associated with type 2 diabetes mellitus (HCC) from Last 3 Months Immunizations Immunization Administration Dates Next Due Influenza, Quadrivalent, Hig h Dose, Preservative Free, Intrr 05/03/2023,06/29/2022,04/12/2021,04/04,04/04/2020 Influenza, Trivalent, High D ose, Split, Preservative Free, Intramuscular 03/17/2025,04/15/2024,04/28/2019,04/28,04/17/2018,04/17/2018,04/10/2017 ,04/10/2017,04/28/2016 Influenza, Trivalent, IM (MDV) 03/04/2015 Influenza, Unspecified 06/29/2022 Pfizer SARS-CoV-2 Monovalent Vaccination (12+ Yrs) PURPLE 10/02/2020,09/11/2020 Pneumococcal Conjugate PCV 13 02/07/2015 Pneumococcal Polysaccharide PPV23 03/02/2020, Tetanus toxoid, adsorbed 05/26/2011 ZOSTER LIVE 11/22/2010 Surgical History Surgery Date Site/Laterality Comments THYROIDECTOMY 2009 BREAST SURGERY lump on nipple left GALLBLADDER SURGERY UTERINE SUSPENSION APPENDECTOMY HYSTERECTOMY 07/10/1976 total BREAST BIOPSY Left BREAST BIOPSY 2022 Right US GUIDED BIOPSY LYMPH NODE SUPERFICIAL LEFT 2022 N/A Medical History Medical History Date Comments Hypertension Hypertension Hyperlipidemia Hyperlipidemia Diabetes mellitus Diabetes Fall Serum calcium elevated 03/02/2020 Normal de xa scan 02/26 Influenza A 10/19/2021 Tested positive 10/19/2021 Awareness under anesthesia after pancreatic biopsy Varicella Heart murmur Family History Medical History Relation Name Comments Diabetes type II Brother 2 Brain cancer Father Breast cancer Maternal cousin Alzheimer's disease Mother Cause of Stroke Mother Breast cancer Mother's Sister Breast cancer Niece Maternal Hypertension Sister 2 Relation Name Status Comments Brother 1 Alive Brother 2 Father (Age 67) Maternal cousin Alive Mother (Age 85) Mother's Sister Niece Maternal Alive Sister 1 Alive Sister 2 Social History Tobacco Use Types Packs/Day Years Used Date Smoking Tobacco: Never Smokeless Tobacco: Never Alcohol Use Standard Drinks/Week Comments Yes 0 (1 standard drink = 0.6 oz pur e alcohol) [facility] Utilities Answer Date Recorded In the past 12 months has e Interactive Project, gas, oil, or water Company [employer] threatened to shut off services in your home? No 02/07/2024 Social Connection and Isolation Panel Answer Date Recorded In a typical week, how many times do you talk on the phone with family, friends, or neighbors? More than three times a week 02/07/2024 How often do you get togethe r with friends or relatives? More than three times a week 02/07/2024 How often do you attend chur ch or synagogue services? 1 to 4 times per year 02/07/2024 Do you belong to any clubs o r organizations such as hindu groups, unions, fraternal or athletic groups, or school groups? No 02/07/2024 How often do you attend meet ings of the clubs or organizations you belong to? Never 02/07/2024 Are you , , di vorced, , never , or living with a partner? 02/07/2024 AUDIT-C Answer Date Recorded Q1: How often do you have a drink containing alcohol? Never 11/11/2024 Q2: How many drinks containi ng alcohol do you have on a typical day when you are drinking? Patient does not drink Q3: How often do you have si x or more drinks on one occasion? Never 11/11/2024 Overall Financial Resource Strain (CARDIA) Answe r Date Recorded How hard is it for you to pa y for the very basics like food, housing, medical care, and heating? Not very hard 02/07/2024 PHQ-2 Answer Date Recorded PHQ-2 Total Score 5 02/11/2025 Hunger Vital Sign Answer Date Recorded Within [...] PHQ-9 Answer Date Recorded PHQ-9 Total Score 12 02/11/2025 Housing Stability Vital Sign Answer Nakul e Recorded In the last 12 months, was t here a time when you were not able to pay the mortgage or rent on time? No 02/07/2024 In the past 12 months, how m any times have you moved where you were living? 0 02/07/2024 At any time in the past [address] [facility], were you homeless or living in a retirement (including now)? No 02/07/2024 Personal Safety Answer Date Recorded Have you ever been in or are you currently in a harmful physical or emotional relationship or is someone making you feel afraid or unsafe? 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 Gender Identity Not on file Sexual Orientation Not on file Obstetrics History Para Term AB IAB SAB Ectopic Multiple Livin g Live Births 2 2 2 Date Outcome GA Total Labor Labor/2nd/3rd Weight Sex Type Anes PTL Calista A1 A5 Name Clin Term Term Last Filed Vital Signs Vital Sign Reading Time Taken Comments Blood Pressure 142/82 03/17/2025 12:55 PM CDT Pulse 78 03/17/2025 12:55 PM CDT Temperature 36.3 C (97.3 F) 03/17/2025 12:55 PM CDT Respiratory Rate 16 02/11/2025 1:33 PM CDT Oxygen Saturation 97% 03/17/2025 12:55 PM CDT Inhaled Oxygen Concentration - - Weight 77.2 kg (170 lb 3.2 oz) 03/17/2025 12:55 PM CDT Height 162.6 cm (5' 4) 03/17/2025 12:55 PM CDT Body Mass Index 29.21 03/17/2025 12:55 PM CDT Plan of Treatment Health Maintenance Due Date Last Done Comments Hepatitis B Screening 1963 Zoster Vaccine (1 of 2) 01/17/2011 11/22/2010 Covid-19 Vaccine (2024-2 6 season) 2025 01/20/2022, 05/05/2021, 10/02/2020, Additional history exists Foot Exam 05/13/2025 05/13/2024, 110 10/2023, 05/03/2023, Additional history exists Hemoglobin A1C 08/28/2025 02/25/2025, 10/10, 09/04/2024, Additional history exists Fall Risk Assessment 11/11/2025 11/11/2024, 02/08/2024, 11/08/2023, Additional history exists Well Visit 65+ 11/11/2025 11/11/2024, 05/0 07/2023, 06/27/2022, Additional history exists Lipid Panel 01/02/2026 01/02/2025, 10/10, 10/31/2023, Additional history exists Dilated Eye Exam 01/20/2026 01/20/2025, 08/2022, 11/10/2021, Additional history exists Depression Screening 02/11/2026 02/11/2025, 02/11/2025, 11/11/2024, Additional history exists eGFR 02/25/2026 02/25/2025, 12/09, 11/06/2024, Additional history exists Albumin Creatinine Ratio, Urine 03/20/2026 03/20/2025, 10/31/2023, 01/05/2023, Additional history exists Osteoporosis Screening-Bone Density Scan 10/25/2028 10/26/2023, 02/11/2020, 01/29/2015, Additional history exists DTaP/Tdap/Td Vaccine Discontinued 05/26/2011 Hepatitis C Screening Completed 05/19/2014 Pneumococcal vaccine 65+ Completed 020, 02/07/2015, 10/07/2010 Colon Cancer Screening-CT Colonography Discontinued 11/19/2020, 04/05/2017 Colon Cancer Screening-Colonoscopy Discontinued 11/19/2020, 04/05/2017 Colon Cancer Screening-DNA Stool Discontinued 11/20/19 21, 04/05/2017 Colon Cancer Screening-FIT Discontinued 11/19/2020, Colon Cancer Screening-FOBT Discontinued 11/19/2020, 0 04/05/2017 Colon Cancer Screening-Sigmoidoscopy Discontinued 11/19/2020, 04/05/2017 Colorectal Cancer Screening Discontinued Breast Cancer Screening-Mammogram Discontinued 03/17/2022, 02/17/2021, 02/11/2020, Additional history exists Influenza Vaccine Completed 03/17/2025, , 05/03/2023, Additional history exists Medical Devices Implanted Type Area Head Of Stock Device Identifier Shelf Expiration Date Model / Serial / Lot [employer] Net Mammomark Cormark Tissue Bowtie Marker Breast Biopsy Collagen [id number] - [id number] Implanted:Qty: 1 on 2022 at [facility] [employer] [id number] 04/02/2023 [id number] / / [id number] [employer] Ultracor Twirl Bard 17ga 10cm Rigid Needle Radiopaque Tissue Ring Latex Free [id number] - [id number] Implanted:Qty: 1 on 2022 at [facility] [employer] [id number] / / Procedures Procedure Name Priority Date/Time Associated Diagnosis Comments ALBUMIN CREATININE RATIO, URINE Routine 03/20/2025 2:15 PM CDT Type 2 diabetes mellitus with diabetic polyneuropathy, without long-term current use of insulin ([facility]) HEMOGLOBIN A1C Routine 02/25/2025 9:20 AM CDT Type 2 diabetes mellitus with diabetic polyneuropathy, without long-term current use of insulin ([facility]) Essential hypertension COMPREHENSIVE METABOLIC PANEL Routine 02/25/2025 9:20 AM CDT Type 2 diabetes mellitus with diabetic polyneuropathy, without long-term current use of insulin ([facility]) Essential hypertension URINE CULTURE Routine 02/25/2025 9:20 AM CDT REFLEXIVE URINE CULTURE Routine 02/25/2025 9:20 AM CDT URINALYSIS AND REFLEX TO MICROSCOPIC AND CULTURE Routine 02/25/2025 9:20 AM CDT Type 2 diabetes mellitus with diabetic polyneuropathy, without long-term current use of insulin ([facility]) Essential hypertension URINE CULTURE Routine 02/11/2025 2:21 PM CDT POCT URINALYSIS DIPSTICK Routine 02/11/2025 2:18 PM CDT Burning with urination DIABETES EYE EXAM Routine 01/20/2025 2:49 PM CDT LIPID PANEL Routine 01/02/2025 9:02 AM CDT Irregular heart beat Systolic murmur Dyslipidemia associated with type 2 diabetes mellitus (CMS/HCC) (HCC) Essential hypertension Atrial premature depolarization Coronary artery calcification seen on CT scan Exertional dyspnea Abnormal EKG Pulmonary hypertension (HCC) DEXA AXIAL SKELETON BONE DENSITY 1 OR MORE SITES Schedule Routine, Read Routine (OP Routine) 10/26/2023 9:53 AM CDT Osteoporosis, unspecified osteoporosis type, unspecified pathological fracture presence SCREENING MAMMOGRAM BILATERAL W MAO Schedule Routine, Read Routine (OP Routine) 03/17/2022 9:50 AM CDT Screening mammogram, encounter for COLONOSCOPY Routine 11/19/2020 HEPATITIS C ANTIBODY Routine 05/19/2014 10:55 AM MANUFACTURING ENGINEERING MANAGER from Last 3 Months or Most Recently Relevant to Health Maintenance Results * (ABNORMAL) Albumin Creatinine Ratio, Urine (03/20/2025 2:15 PM CDT) Creatinine, ur 135 20 - 275 mg/dL [facility] Microalbumin, ur 74.8 See Note: mg/dL [facility] Comment: Reference Range: Reference Range Not established Results verified by repeat analysis on dilution. Microalbumin/creat ratio 554(H) <30 mg/g creat [facility] Comment: [...] to be within a diagnostic category. Urine 03/20/2025 2:15 PM CDT 03/20/2025 2:15 PM CDT Floresita Samaniego MD LAB URINE ORDERABLES Final R esult [facility] [address] [place] [address] * REFLEXIVE URINE CULTURE (02/25/2025 9:20 AM CDT) [facility] Comment:CULTURE INDICATED - RESULTS TO FOLLOW 02/25/2025 9:20 AM CDT 02/25/2025 9:21 AM CDT Narrative [facility] - 02/26/2025 9:49 PM CDT FASTING:YES FASTING: YES Floresita Samaniego MD LAB MICROBIOLOGY - GENERAL O RDERABLES Final Result Performing Organization Address City/[facility] [address]/ZIP Co de Phone Number [facility] [address] [place] [address] * (ABNORMAL) Urinalysis reflex to microscopic and culture Urine, clean voided (02/25/2025 9:20 AM CDT) Color, ur DARK YELLOW YELLOW [facility] Appearance, ur CLEAR CLEAR [facility] Specific gravity 1.023 1.001 - 1.035 [facility] pH, ur 5.5 5.0 - 8.0 [facility] Glucose, ur TRACE(A) NEGATIVE [facility] Bilirubin, ur NEGATIVE NEGATIVE [facility] Ketones, ur TRACE(A) NEGATIVE [facility] Blood, ur NEGATIVE NEGATIVE [facility] Protein, ur, quant 2+(A) NEGATIVE [facility] Nitrites, ur NEGATIVE NEGATIVE [facility] Leukocyte esterase, ur 1+(A) NEGATIVE [facility] [place] WBC, ur 10-20(A) < OR = 5 /HPF [facility] [place] RBC, ur 0-2 < OR = 2 /HPF [facility] Epithelial cells, squamous, ur 0-5 < OR = 5 /HPF [facility] Bacteria, ur, quant NONE SEEN NONE SEEN /HPF [facility] Calcium oxalate crystals, ur MODERATE(A) NONE OR FEW /HPF [facility] Hyaline cast 10-20(A) NONE SEEN /LPF [facility] Note [facility] Comment: This urine was analyzed for the presence of WBC, RBC, bacteria, casts, and other formed elements. Only those elements seen were reported. Urine, clean voided 02/25/2025 9:20 AM CDT 02/25/2025 9:21 AM CDT Narrative [facility] - 02/26/2025 9:49 PM CDT FASTING:YES FASTING: YES Floresita Samaniego MD LAB MICROBIOLOGY - GENERAL O RDERABLES Final Result Performing Organization Address City/[facility] [address]/[facility] Co de Phone Number [facility] [address] [place] [address] * Urine culture (02/25/2025 9:20 AM CDT) Urine culture [facility] Comment: CULTURE, URINE, ROUTINE Micro Number: [id number] Test Status: Final Specimen Source: Urine Specimen Quality: Adequate Result: No Growth 02/25/2025 9:20 AM CDT 02/25/2025 9:21 AM CDT Narrative [facility] - 02/26/2025 9:49 PM CDT FASTING:YES FASTING: YES Floresita Samaniego MD LAB MICROBIOLOGY - GENERAL O RDERABLES Final Result Performing Organization Address [facility] [address]/[facility] Co de Phone Number [facility] [address] [place] [address] * (ABNORMAL) Hemoglobin A1c (02/25/2025 9:20 AM CDT) Hgb A1C 6.4(H) <5.7 % of total Hgb [facility] Comment: For someone without known diabetes, a hemoglobin A1c value between 5.7% and 6.4% is consistent with prediabetes and should be confirmed with a follow-up test. For someone with known diabetes, a value <7% indicates that their diabetes is well controlled. A1c targets should be individualized based on duration of diabetes, age, comorbid conditions, and other considerations. This assay result is consistent with an increased risk of diabetes. Currently, no consensus exists regarding use of hemoglobin A1c for diagnosis of diabetes for children. Blood 02/25/2025 9:20 AM CDT 02/25/2025 9:21 AM CDT Narrative [facility] - 02/26/2025 9:49 PM CDT FASTING:YES FASTING: YES us Floresita Samaniego MD LAB BLOOD ORDERABLES Final R esult [facility] [address] [place] [address] * (ABNORMAL) Comprehensive metabolic panel (02/25/2025 9:20 AM CDT) Glucose 115(H) 65 - 99 mg/dL [facility] Comment: Fasting reference interval For someone without known diabetes, a glucose value between 100 and 125 mg/dL is consistent with prediabetes and should be confirmed with a follow-up test. BUN 18 7 - 25 mg/dL [facility] Creatinine 0.91 0.60 - 1.00 mg/dL [facility] eGFR 64 > OR = 60 mL/min/1.7 3m2 [facility] BUN/creat ratio SEE NOTE: 6 - 22 (calc) [facility] Comment: Not Reported: BUN and Creatinine are within reference range. Sodium 141 135 - 146 mmol/L [facility] Potassium, pl 3.5 3.5 - 5.3 mmol/L [facility] Chloride 105 98 - 110 mmol/L [facility] CO2 31 20 - 32 mmol/L [facility] Calcium 10.4 8.6 - 10.4 mg/dL [facility] Protein, sr 6.3 6.1 - 8.1 g/dL [facility] Albumin 4.3 3.6 - 5.1 g/dL [facility] GLOBULIN 2.0 1.9 - 3.7 g/dL (calc) [facility] Alb/glob ratio 2.2 1.0 - 2.5 (calc) [facility] Bilirubin, total 0.9 0.2 - 1.2 mg/dL [facility] Alk phos 49 37 - 153 U/L [facility] AST 14 10 - 35 U/L [facility] ALT (SGPT) 10 6 - 29 U/L [facility] Blood 02/25/2025 9:20 AM CDT 02/25/2025 9:21 AM CDT Narrative [facility] - 02/26/2025 9:49 PM CDT FASTING:YES FASTING: YES us Floresita Samaniego MD LAB BLOOD ORDERABLES Final R esult [facility] [address] [place] [address] * Urine culture Urine (02/11/2025 2:21 PM CDT) Report Final Report: Less than 100,000 colonies/mL (clinically insignificant growth based on current clinical standards) Comment:Testing performed by : [facility], [address] [place] [address] Organism (CLINICALLY INSIGNIFICANT GROWTH K[facility]STINE Urine 02/11/2025 2:21 PM CDT 02/12/2025 5:40 PM CDT Narrative KRISTINE - 02/13/2025 7:27 PM CDT Testing performed by [facility] Microbiology Laboratory ([phone]) us Morgan Li Jr., MD LAB MICROBIOLOGY - GE NERAL ORDERABLES Final Result KRISTINE [address] [facility] Department [place] [address] * (ABNORMAL) POCT urinalysis dipstick (02/11/2025 2:18 PM CDT) Color, Urine, POC Yellow Clarity, ur, POC Clear Clear Glucose, ur, POC Negative Negative Bilirubin, ur, POC Small(A) Negative Ketones, ur, POC 15.(A) Negative Specific Industry, POC 1.025 1.003 - 1.030 Blood, ur, POC Negative Negative pH, ur, POC 5.5 5.0 - 8.0 Protein, ur, POC 300.(A) Negative Urobilinogen, urine, POC 0.2 0.2 - 1.0 mg/dL Nitrite, ur, POC Negative Negative Leukocytes, ur, POC Trace(A) Negative Lot Number [id number] Urine 02/11/2025 2:18 PM CDT Daria Ferraro NP POINT OF CARE TEST ORDERABLE S Final Result * DIABETES EYE EXAM (01/20/2025 2:49 PM CDT) SCRIBED DIABETIC DILATED EYE EXAM Normal Historical Provider HEALTH MAINTENANCE Final Result * Lipid panel (01/02/2025 9:02 AM CDT) Cholesterol 137 <200 mg/dL [facility] HDL 54 > OR = 50 mg/dL [facility] Triglycerides 136 <150 mg/dL [facility] LDL 61 mg/dL (calc) [facility] Comment: Reference range: <100 Desirable range <100 mg/dL for primary prevention; <70 mg/dL for patients with CHD or diabetic patients with > or = 2 CHD risk factors. LDL-C is now calculated using the Sarwat-Suzanna calculation, which is a validated novel method providing better accuracy than the Friedewald equation in the estimation of LDL-C. Sarwat CR et al. NATALEE. 2013;310(19): 8382-3213 (http://education.Gridium.CookBrite/faq/DTY522) Chol/HDL ratio 2.5 <5.0 (calc) [facility] Non-HDL, (LDL+VLDL) 83 <130 mg/dL (calc) [facility] Comment: For patients with diabetes plus 1 major ASCVD risk factor, treating to a non-HDL-C goal of <100 mg/dL (LDL-C of <70 mg/dL) is considered a therapeutic option. Blood 01/02/2025 9:02 AM CDT 01/02/2025 9:02 AM CDT Narrative [facility] - 01/03/2025 6:14 AM CDT FASTING:YES FASTING: YES us Vladimir Isaac MD LAB BLOOD ORDERABLES Final Result [facility] [address] [place] [address] * Dexa Axial Skeleton Bone Density 1 [...] vitamin-D, calcium, Fosamax and hormone replacement therapy. Head Of Stock/Model: Halton A (S/N [id number]) CLINICAL INFORMATION: Current height: 63.5 inches Maximum [...] Beverly Rizzo M.D. TW: TW Report ID: [id number] Reading Location: [place] [address] Procedure Note Beverly Rizzo MD - 10/26/2023 EXAM DESCRIPTION: DEXA AXIAL SKELETON BONE DENSITY 1 OR MORE SITES REASON FOR STUDY: 78 y/o year old F with given history of: Post menopausal status. History of prior fracture. Patient has taken/istaking vitamin-D, calcium, Fosamax and hormone replacement therapy. Head Of Stock/Model: Halton A (S/N [id number]) CLINICAL INFORMATION: Current height: 63.5 inches Maximum [...] Electronically signed by Beverly Rizzo M.D. TW: MARLENE Report ID: [id number] Reading Location: [place] [address] us Floresita Samaniego MD IMG DXA PROCEDURES Final Res ult * (ABNORMAL) Screening Mammogram Bilateral W Mao [...] indeterminate masses in the inner right breast, [id number] depth ,and outer right breast, middle depth. No suspicious findings or suspicious changes are seen within either breast. us Self Screening Mammogram IMG MAMMO PROCEDURES Fi nal Result * HM COLONOSCOPY (11/19/2020) us Historical Provider HEALTH MAINTENANCE Final Result * Hepatitis C antibody (05/19/2014 10:55 AM MANUFACTURING ENGINEERING MANAGER) Hep C Ab NONREACT NONREACTIVE 05/19/2014 12:41 PM MANUFACTURING ENGINEERING MANAGER [facility] HISTORICAL RESULTS Comment: Siemens Zinc softwareaurXP using MITCHELL (chemiluminescent immunoassay) technology. NONREACTIVE: Antibodies [...] Hepatitis C detected. 05/19/2014 10:5 5 AM MANUFACTURING ENGINEERING MANAGER 05/19/2014 11:00 AM MANUFACTURING ENGINEERING MANAGER us Floresita Samaniego MD LAB MICROBIOLOGY - GENERAL O RDERABLES Final Result [facility] HISTORICAL RESULTS from Last 3 Months or Most Recently Relevant to Health Maintenance Insurance [employer] [address] [facility] [place] [address] [employer] MEDICARE HMO Advance Directives For more information, please contact: [phone] * Full Code (Latest Code Status on File) Date Activated Date Inactivated Comments 02/06/2024 12:45 PM 02/08/2024 6:23 PM * Full Code Date Activated Date Inactivated Comments 07/14/2022 5:59 PM 07/15/2022 8:31 PM Care Teams Rehanger Relationship Specialty Start Date End Date Floresita Samaniego MD [address] [place] [address] PCP - General 04/07/14 Saulo Narayan OD [address] [place] [address] Optometry 08/08/19 Darci Connolly DPM [address] [place] [address] Referring Physician Podiatry 06/16/20 Laith Ortiz MD [address] [facility] [address] [place] [address] Consulting Physician Surgical Oncology 06/27/22 Francisco Gtz MD [address] [facility] [address] [place] [address] Referring Physician Hematology 07/22/22
--- OUTSIDE RECORDS SUMMARY | 2025-04-15 15:18 | XMS_ITS | Clinical Summary ---
Author Organization [facility] Address [address] [place] [address] Care Team Providers Care Firer Watertender Name Role Phone Floresita Samaniego MD Primary Care Provider [phone] Allergies Active Allergy Reactions Criticality Noted Date Comments Erythromycin Other (see comment) 11/12/2020 Bad stomach pain Penicillins Rash Low 11/12/2020 Medications hydrALAZINE HCl 100 MG Tab Take 100 mg by mouth 2 (two) times a day. Active indapamide 1.25 MG tablet Take 2.5 mg by mouth every morning. Active amLODIPine 10 MG tablet Take 10 mg by mouth daily. Active canagliflozin (INVOKANA) 300 MG tablet Take 300 mg by mouth every morning before breakfast. Active metFORMIN ER, MOD, 500 MG TABLET SR 24 HR 24 hr tablet Take 500 mg by mouth daily. Active metFORMIN ER, MOD, 500 MG TABLET SR 24 HR 24 hr tablet Take 1,500 mg by mouth every evening. Active glipiZIDE XL 10 MG 24 hr tablet Take 10 mg by mouth 2 (two) times a day. Do not break or crush tablet Active levothyroxine 75 MCG tablet Take 75 mcg by mouth every morning. Active lovastatin 10 MG tablet Take 10 mg by mouth daily. Active potassium chloride CR 20 MEQ tablet Take 20 mEq by mouth daily. Active Multiple Vitamins-Minera ls (CENTRUM SILVER 50+WOMEN OR) Take 1 tablet by mouth daily. Active aspirin EC (ASPIRIN EC) 81 MG tablet Take 81 mg by mouth daily. Active Cholecalciferol (VITAMIN D) 50 MCG (1999 UT) Tab Take 2,000 Units by mouth daily. 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 Gender Identity Not on file Sexual Orientation Not on file Last Filed Vital Signs Vital Sign Reading Time Taken Comments Blood Pressure 127/58 11/19/2020 11:05 AM CDT Pulse 71 11/19/2020 11:05 AM CDT Temperature 36.1 C (97 F) 11/19/2020 10:41 AM CDT Respiratory Rate 20 11/19/2020 11:05 AM CDT Oxygen Saturation 97% 11/19/2020 11:05 AM CDT Inhaled Oxygen Concentration - - Weight 81.6 kg (180 lb) 11/12/2020 1:03 PM CDT Height 162.6 cm (5' 4) 11/12/2020 1:03 PM CDT Body Mass Index 30.9 11/12/2020 1:03 PM CDT Plan of Treatment Health Maintenance Due Date Last Done Comments Hepatitis C 1963 Annual Medicare Wellness Visit 2010 Dexa Scan (General) 2010 Zoster Vaccines (2 of 3) 01/17/2011 11/22/2010 DTaP, Tdap and Td Vaccines ( 1 - Tdap) 05/27/2011 05/26/2011 RSV Immunization or 60+ Years (1 - 1-dose 75+ series) 2020 COVID-19 Vaccine (3 - 2024-2 6 season) 2025 10/02/2020, 09/11/2020 Pneumococcal Vaccine: 50+ Years Completed 03/02/2020, 02/07/2015, 10/07/2010 Colorectal Cancer Screening Colonoscopy (10 Years) Discontinued 11/19/2020, 11/19/2020 Meningococcal B Vaccine Aged Out No l onger eligible based on patient's age to complete this topic Meningococcal Vaccine Aged Out No ronan rosario eligible based on patient's age to complete this topic RSV Immunizations Under 20 Months Aged Out No longer eligible based on patient's age to complete this topic Procedures Procedure Name Priority Date/Time Associated Diagnosis Comments COLONOSCOPY Routine 11/19/2020 10:20 AM CDT from Last 3 Months or Most Recently Relevant to Health Maintenance Results * Colonoscopy (11/19/2020 10:20 AM CDT) Flavio Phan MD - 11/19/2020 10:20 AM CDT Flavio Sesay MD 11/19/2020 10:50 AM FLAVIO SESAY MD, FACG, FACP COLONOSCOPY 11/19/2020 This is a 75-year-old female with history of T2DM, HTN, HLD, DVT, Thyroidectomy with hypothyroidism, CCx, Appy, Hysterectomy, tubal ligation and umbilical hernia repair who now presents for colonoscopy for personal history of adenomatous colon polyps. GI review of systems is negative. No endocarditis risk factors. Allergies Allergen Reactions Erythromycin Other (see comment) Bad stomach pain Penicillins Rash Medications: see list. Family history: negative for colon cancer. VITALS: Stable. LUNGS: Clear. HEART: RRR. S1/S2 normal. ABDOMEN: NABS/NT. The procedure of colonoscopy, its indications, alternatives of barium studies and risks including perforation, bleeding, infection, reaction to medication as well as the possible need for blood or surgery were discussed with the patient prior to the procedure. The patient voices understanding, agrees to proceed and provides informed consent. COLONOSCOPY INDICATION: Personal history of colon polyps. POST-OP: Normal. SEDATION: Per Anesthesia PREP: Good. With the patient in the left lateral decubitus position, the Olympus [id number] colonoscope was introduced into the rectum and advanced easily to the Terminal Ileum. Careful inspection of the mucosa was made upon insertion and withdrawal of the endoscope. FINDINGS: Terminal ileum: distal 5 cm normal. Cecum, Ascending colon, Transverse colon, Descending colon, Sigmoid colon and Rectum including retroflexion normal. No masses, polyps, AVMs, colitis or diverticulosis seen. No complications, blood loss or implants. ASSESSMENT AND PLAN: Personal history of colon polyps: - Colonoscopy 06-12-2017 NE polyp x 2 with one 1.5 cm sessile serrated adenoma - Colonoscopy 11-19-2020 normal - I will place in our recall for repeat colonoscopy in five years due to high risk polyp 2017 Thank you for allowing me to care for your patient. She will follow-up with Dr. Samaniego as needed. Flavio Sesay M.D. Cc: Dr. Rafa Samaniego us Flavio Sesay MD GI PROCEDURE ORDERABLES Fin al Result from Last 3 Months or Most Recently Relevant to [place] [id number] [employer] MEDICARE Care Teams Firer Watertender Relationship Specialty Start Date End Date Floresita Samaniego MD [address] [facility] [place] [address] PCP - General INTERNAL MEDICINE 11/16/20
--- OUTSIDE RECORDS SUMMARY | 2025-04-15 15:18 | XMS_ITS | Encounter Summary ---
Author Organization [facility] Facility Care Team Providers Care Rush Seater Name Role Phone Floresita Samaniego MD Primary Care Provider + [phone] Simi Uriarte LPN Unavailable [phone] Nathan Waldron MD Unavailable [phone] Flavio Sesay MD Unavailable +[phone] Saulo Narayan OD Unavailable [phone] Darci Connolly DPM Unavailable [phone] Jamie Gamboa MD Unavailable [phone] Francisco Candelario MD PhD Unavailable [phone] Laith Ortiz MD Unavailable [phone] Jamie Gamboa MD Unavailable [phone] Francisco Gtz MD Unavailable [phone] Laith Ortiz MD Unavailable [phone] Encounter Details Date Type Department Care Team (Latest Contact Info) Description 06/09/2016 Orders Only [facility] CLINCONV ProviderAsim MD [address] [place] [address] Social History Tobacco Use Types Packs/Day Years Used Date Smoking Tobacco: Never Assessed Alcohol Use Standard Drinks/Week Comments Yes 0 (1 standard drink = 0.6 oz pur e alcohol) Comments Unknown Sex and Gender Information Value Date Recorded Sex Assigned at Not on file Legal Sex Female 7:57 PM TWISTING FRAME FIXER Gender Identity Not on file Sexual Orientation Not on file documented as of this encounter Plan of Treatment Not on file documented as of this encounter Procedures Procedure Name Priority Date/Time Associated Diagnosis Comments PROCEDURE - RESULT 06/10/2016 12 :00 AM TWISTING FRAME FIXER documented in this encounter Results * PROCEDURE - RESULT (06/10/2016 12:00 AM TWISTING FRAME FIXER) Narrative 06/10/2016 12:00 AM TWISTING FRAME FIXER Ordered by an unspecified provider. us Historical Provider Final Res ult documented in this encounter Visit Diagnoses Not on filedocumented in this encounter Additional Health Concerns Infection Onset Date Last Indicated Resolved Time COVID: Suspected 10/19/2021 10/19/2021 10/19/2021 5:51 PM CDT Influenza, adult 10/19/2021 10/19/2021 10/26/2021 3:05 AM CDT documented as of this encounter Care Teams Rush Seater Relationship Specialty Start Date End Date Floresita Samaniego MD [address] [place] [address] PCP - General 04/07/14 Simi Uriarte, NICOLE [address] [place] [address] [address] [place] [address] Wire Weaving Loom Setter 04/10/18 04/10/18 Nathan Waldron MD [address] [facility] [address] [place] [address] Consulting Physician Obstetrics and Gynecology 02/12/19 10/23/22 Flavio Sesay MD [address] [facility] [address] [place] [address] Referring Physician Gastroenterology 02/12/19 05/12/24 Saulo Narayan CHAO [address] [facility] [place] [address] Optometry 08/08/19 Darci Connolly DPM [address] [place] [address] Referring Physician Podiatry 06/16/20 Jamie Gamboa MD [address] DE[place] [address] Consulting Physician Radiation Oncology 06/08/22 Francisco Candelario MD PhD [address] [place] [address] Medical Oncologist/Hematologi st Hematology and Oncology 06/08/22 07/25/22 Laith Ortiz MD [address] [address] Consulting Physician Surgical Oncology 06/27/22 Jamie Gamboa MD [address] [place] [address] Consulting Physician Radiation Oncology 06/27/22 Francisco Gtz MD [address] [place] [address] Referring Physician Hematology 07/22/22 Laith Ortiz MD [address] [address] Consulting Physician Surgical Oncology 05/03/23 4 documented as of this encounter
--- OUTSIDE RECORDS SUMMARY | 2025-04-15 15:18 | XMS_ITS | Encounter Summary ---
Author Organization [facility] Healthcare Address [address] [place] [address] Care Team Providers Care Aviation Boatswain'S Mate Name Role Phone Floresita Samaniego MD Primary Care Provider + [phone] Saulo Narayan OD Unavailable + [phone] Darci Connolly DPM Unavailable [phone] Laith Ortiz MD Unavailable [phone] Francisco Gtz MD Unavailable [phone] Reason for Referral * Diagnostic Imaging (Routine) - Authorized Specialty Diagnoses / Procedures Referred By Contac t Referred To Contact Diagnoses Hx of breast cancer History of right mastectomy Screening mammogram for breast cancer Procedures Screening Mammogram Left W Mao Unilateral Only Laith Ortiz MD [address] [facility] [address], [place] [address] Phone: tel: fax: [place] [place] [address] Referral ID Status Reason Start Date Expiration Date V isits Requested Visits Authorized [id number] Authorized 04/14/2025 05/14/2026 1 1 Encounter Details Date Type Department Care Team (Late st Contact Info) Description 04/14/2025 Orders Only [facility] [address] [facility] [address] [place] [phone] Laith Ortiz MD [address] [place] [address] Screening mammogram for breast cancer (Primary Dx); Hx of breast cancer; History of right mastectomy Social History Tobacco Use Types Packs/Day Years Used Date Smoking Tobacco: Never Smokeless Tobacco: Never Alcohol Use Standard Drinks/Week Comments Yes 0 (1 standard drink = 0.6 oz pur e alcohol) [facility] Utilities Answer Date Recorded In the past 12 months has th e electric, gas, oil, or water [employer] threatened to shut off services in your [...] How often do you attend chur or mu-ism services? 1 to 4 times per year 02/07/2024 Do you belong to any clubs o r organizations such as jehovah's witness groups, unions, fraternal or athletic groups, or [...] any time in the past [address] [facility], were you homeless or living in a senior care (including now)? No 02/07/2024 Personal Safety Answer Date Recorded Have you ever been in or are you currently in a harmful physical or emotional relationship or is someone making you feel afraid or unsafe? 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 Pt aware I will call and getit scheduled for her. Spoke to scheduling and pt is not scheduled for 05/12/2025 at 11:30 AM. She noted per [facility] office only due for Scr Mammo due to protocol changing. Pt notified. documented in this encounter Miscellaneous Notes * Addendum Note - Nathalia Estrada MA - 04/14/2025 2:59 PM CDTAddended by: NATHALIA ESTRADA on: 04/14/2025 03:17 PM Modules accepted: Orders documented in this encounter Plan of Treatment Scheduled Orders Name Type Priority Associated Diagnoses Orde r Schedule Screening Mammogram Left W Mao Unilateral Only Imaging Schedule Routine, Read Routine (OP Routine) Hx of breast cancer History of right mastectomy Screening mammogram for breast cancer Expected: 04/14/2025, Expires: 06/14/2026 documented as of this encounter Visit Diagnoses Diagnosis Screening mammogram for breast cancer- Primary Hx of breast cancer Personal history of malignant neoplasm of breast History of right mastectomy Acquired absence of breast and nipple documented in this encounter Care Teams Aviation Boatswain'S Mate Relationship Specialty Start Date End Date Floresita Samaniego MD [address] [place] [address] PCP - General 04/07/14 Saulo Narayan OD [address] [place] [address] Optometry 08/08/19 Darci Connolly DPM [address] [place] [address] Referring Physician Podiatry 06/16/20 Laith Ortiz MD [address] [facility] [address], [place] [address] Consulting Physician Surgical Oncology 06/27/22 Francisco Gtz MD [address] [facility] [address] [place] [address] Referring Physician Hematology 07/22/22 documented as of this encounter
--- OUTSIDE RECORDS SUMMARY | 2025-04-15 15:18 | XMS_ITS | Encounter Summary ---
Author Organization [facility] Healthcare Address [address] [place] [address] Care Team Providers Care Air Cargo Ground Operations Supervisor Name Role Phone Floresita Samaniego MD Primary Care Provider + [phone] Saulo Narayan Heron OD Unavailable + [phone] Darci Connolly DPM Unavailable [phone] Laith Ortiz MD Unavailable [phone] Francisco Gtz MD Unavailable [phone] Reason for Visit * Reason Onset Date Comments Test Results 03/23/2025 Encounter Details Date Type Department Care Team ([facility] st Contact Info) Description 03/23/2025 Results Follow-Up [facility] Primary Care [address] [place] [phone] Floresita Samaniego MD [address] [place] [address] Albumin Creatinine Ratio, Urine Social History Tobacco Use Types Packs/Day Years Used Date Smoking Tobacco: Never Smokeless Tobacco: Never Alcohol Use Standard Drinks/Week Comments Yes 0 (1 standard drink = 0.6 oz pur e alcohol) [facility] Utilities Answer Date Recorded In the past 12 months has [employer] electric, gas, oil, or water company threatened to shut off services in your [...] How often do you attend chur or jew services? 1 to 4 times per year 02/07/2024 Do you belong to any clubs o r organizations such as islam groups, unions, fraternal or athletic groups, or [...] time in the past [address] [facility], were you homeless or living in a [place] health care facility (including now)? No 02/07/2024 Personal Safety Answer Date Recorded Have you ever been in or are you currently in a harmful physical or emotional relationship or is someone making you feel afraid or unsafe? 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 [facility] Did provider dictate result yet? Yes Where were results relayed from in the chart? Telephone encounter Additional Questions/Comments: Relayed Dr. Samaniego's resuls/recommendations. Patient stated she will try to improve her diet. Does message need to be routed? Yes-FYI Only * Result Encounter Note - Maria A Chan MA - 03/24/2025 8:55 AM CDT LMTC to inform her of providers note below, * Result Encounter Note - Floresita Samaniego MD - 03/23/2025 10:23 PM CDT Please call the patient regarding recent urine test is showing micro protein in the urine secondaryto DM. Cont to try to improve diabetes control documented in this encounter Plan of Treatment Not on file documented as of this encounter Visit Diagnoses Not on filedocumented in this encounter Care Teams Air Cargo Ground Operations Supervisor Relationship Specialty Start Date End Date Floresita Samaniego MD [address] [place] [address] PCP - General 04/07/14 Saulo Narayan OD [address] [place] [address] Optometry 08/08/19 Darci Connolly DPM [address] [place] [address] Referring Physician Podiatry 06/16/20 Laith Ortiz MD [address] [facility] [address] [place] [address] Consulting Physician Surgical Oncology 06/27/22 Francisco Gtz MD [address] [address] Referring Physician Hematology 07/22/22 documented as of this encounter
--- OUTSIDE RECORDS SUMMARY | 2025-04-15 15:18 | XMS_ITS | Encounter Summary ---
Author Organization [facility] Address [facility] [place] [address] Care Team Providers Care Sewer Pipe Offbearer Name Role Phone Floresita Samaneigo MD Primary Care Provider [phone] Encounter Details Date Type Department Care Team (Late st Contact Info) Description 11/16/2020 Prep for Procedure [facility] [place], [place] [phone] Flavio Sesay MD [address] [id number] Social History Tobacco Use Types Packs/Day Years Used Date Smoking Tobacco: Never Smokeless Tobacco: Never Comments No Sex and Gender Information Value Date Recorded Sex Assigned at Not on file Legal Sex Female 4:[address]ER FREIGHT Gender Identity Not on file Sexual Orientation Not on file COVID-19 Exposure Response Date Recorded In the last month, have you been in contact with someone who was confirmed or suspected to have Coronavirus / COVID-19? No / Unsure 11/19/2020 8:59 AM CDT documented as of this encounter Plan of Treatment Not on file documented as of this encounter Results * PRE-SURGICAL/PRE-PROCEDURE CORONAVIRUS (COVID 19) (11/16/2020 10:35 AM CDT) CORONAVIRUS SARS COV 2 PCR (RESP) NOT DETECTED NOT DETECTED 11/17/2020 2:50 PM CDT [facility] Comment: A Not Detected (negative) test result for this test means that SARS-CoV-2 RNA was not present in the specimen above the limit of detection. A negative result does not rule out the possibility of COVID-19 and should not be used as the sole basis for treatment or patient management decisions. If COVID-19 is still suspected, based on exposure history together with other clinical findings, re-testing should be considered in consultation with public health authorities. Laboratory test results should always be considered in the context of clinical observations and epidemiological data in making a final diagnosis and patient management decisions. This patient specimen was tested using an FDA EUA pooling method. Patient specimens with low viral loads may not be detected in sample pools due to the decreased sensitivity of pooled testing. Please review the Fact Sheets and FDA authorized labeling available for health care providers and patients using the following websites: https://www.[employer]/home/Covid-19/HCP/NAAT/fact-sheet2 https://www.[employer]/home/Covid-19/Patients/NAAT/ fact-sheet2 This test has been authorized by the FDA under an Emergency Use Authorization (EUA) for use by authorized laboratories. Due to the current public health emergency, [facility] is receiving a high volume of samples from a wide variety of swabs and media for COVID-19 testing. In order to serve patients during this public health crisis, samples from appropriate clinical sources are being tested. Negative test results derived from specimens received in non-commercially manufactured viral collection and transport media, or in media and sample collection kits not yet authorized by FDA for COVID-19 testing should be cautiously evaluated and the patient potentially subjected to extra precautions such as additional clinical monitoring, including collection of an additional specimen. Methodology: Nucleic Acid Amplification Test (NAAT) includes RT-PCR or TMA Additional information about COVID-19 can be found at the [facility] website: www.[employer]/Covid19. [facility] [address] [place] [address] Director: ROXANNE WARD DO,MPH FIRST TEST YES 11/16/2020 12:43 PM CDT [facility] EMPLOYED IN HEALTHCARE UNKNOWN 11/16/2020 12:43 PM CDT [facility] SYMPTOMATIC DEFINED BY CDC NO 11/16/2020 12:43 PM T [facility] DATE OF SYMPTOM ONSET NO 11/16/2020 12:59 PM CDT [facility] HOSPITALIZATION STATUS NO 11/16/2020 12:43 PM CDT [facility] PATIENT IN ICU NO 11/16/2020 12:43 PM CDT [facility] RESIDENT OF CONGREGATE CARE UNKNOWN 11/16/2020 12:43 PM CDT [facility] NO 11/16/2020 12:59 PM CDT [facility] PATIENT'S RACE WHITE OR 11/16/2020 12:43 PM CDT [facility] ETHNICITY UNKNOWN 11/16/2020 12:43 PM CDT [facility] SOURCE (QST) NASOPHARYNGEAL SWAB 11/16/2020 12:43 PM CDT [facility] NASOPHARYNGEAL SWAB / Unknown 11/16/2020 10:35 AM CDT us Flavio Sesay MD [facility] Final Result [facility] [address] [place] [address], [place] [address], documented in this encounter Visit Diagnoses Diagnosis History of colon polyps- Primary Personal history of colonic polyps documented in this encounter Additional Health Concerns Infection Onset Date Last Indicated Resolved Time COVID-19 Rule Out 11/16/2020 11/16/2020 11/17/2020 2:50 PM CDT documented as of this encounter Care Teams Sewer Pipe Offbearer Relationship Specialty Start Date End Date Floresita Samaniego MD [address] [facility] [place] [address] PCP - General INTERNAL MEDICINE 11/16/20 documented as of this encounter
--- OUTSIDE RECORDS SUMMARY | 2025-04-15 15:18 | XMS_ITS | Encounter Summary ---
Author Organization [facility] Facility Care Team Providers Care Rouge Mixer Name Role Phone Floresita Samaniego MD Primary Care Provider + [phone] Simi Uriarte LPN Unavailable [phone] Nathan Waldron MD Unavailable [phone] Flavio Sesay MD Unavailable [phone] Saulo Narayan OD Unavailable [phone] Darci Connolly DPM Unavailable [phone] Jamie Gamboa MD Unavailable [phone] Francisco Candelario MD PhD Unavailable [phone] Laith Ortiz MD Unavailable [phone] Jamie Gamboa MD Unavailable [phone] Francisco Gtz MD Unavailable [phone] Laith Ortiz MD Unavailable [phone] Encounter Details Date Type Department Care Team (Latest Contact Info) Description 03/07/2016 Orders Only [facility] CLINCONV ProviderAsim MD [address] [place] [address] Social History Tobacco Use Types Packs/Day Years Used Date Smoking Tobacco: Never Assessed Alcohol Use Standard Drinks/Week Comments Yes 0 (1 standard drink = 0.6 oz pur e alcohol) Comments Unknown Sex and Gender Information Value Date Recorded Sex Assigned at Not on file Legal Sex Female 7:57 PM CLINICAL PRODUCT MANAGER Gender Identity Not on file Sexual [...] documented as of this encounter Care Teams Rouge Mixer Relationship Specialty Start Date End Date Floresita Samaniego MD [address] [place] [address] PCP - General 04/07/14 Simi Uriarte, MANAGED CARE MANAGER [address] [place] [address] [address] [place] [address] Records Management Manager 04/10/18 04/10/18 Nathan Waldron MD [address] [facility] [address] [place] [address] Consulting Physician Obstetrics and Gynecology 02/12/19 10/23/22 Flavio Sesay MD [address] [facility] [address] [place] [address] Referring Physician Gastroenterology 02/12/19 05/12/24 Saulo Narayan OD [address] [facility] [place] [address] Optometry 08/08/19 Darci Connolly DPM [address] [place] [address] Referring Physician Podiatry 06/16/20 Jamie Gamboa MD [address] [place] [address] Consulting Physician Radiation Oncology 06/08/22 Francisco Candelario MD PhD [address] [place] [address] Medical Oncologist/Hematologi st Hematology and Oncology 06/08/22 07/25/22 Laith Ortiz MD [address] [address] Consulting Physician Surgical Oncology 06/27/22 Jamie Gamboa MD [address] [place] [address] Consulting Physician Radiation Oncology 06/27/22 Francisco Gtz MD [address] [place] [id number] Referring Physician Hematology 07/22/22 Laith Ortiz MD [address] [address] Consulting Physician Surgical Oncology 05/03/23 4 documented as of this encounter
--- OUTSIDE RECORDS SUMMARY | 2025-04-15 15:18 | XMS_ITS | Encounter Summary ---
Author Organization [facility] Facility Care Team Providers Care Fruit Rancher Name Role Phone Floresita Samaniego MD Primary Care Provider + [phone] Simi Uriarte LPN Unavailable [phone] Nathan Waldron MD Unavailable [phone] Flavio Sesay MD Unavailable [phone] Saulo Narayan OD Unavailable [phone] Darci Connolly DPM Unavailable [phone] Jamie Gamboa MD Unavailable [phone] Francisco Candelario MD PhD Unavailable [phone] Laith Ortiz MD Unavailable [phone] Jamie Gamboa MD Unavailable [phone] Francisco Gtz MD Unavailable [phone] Laith Ortiz MD Unavailable [phone] Encounter Details Date Type Department Care Team (Latest Contact Info) Description 06/12/2017 Orders Only [facility]G CLINCONV ProviderAsim MD [address] [place] [address] Social History Tobacco Use Types Packs/Day Years Used Date Smoking Tobacco: Never Assessed Alcohol Use Standard Drinks/Week Comments Yes 0 (1 standard drink = 0.6 oz pur e alcohol) Comments Unknown Sex and Gender Information Value Date Recorded Sex Assigned at Not on file Legal Sex Female 7:57 PM CITY PLANT SUPERVISOR Gender Identity Not on file Sexual Orientation Not on file documented as of this encounter Plan of Treatment Not on file documented as of this encounter Procedures Procedure Name Priority Date/Time Associated Diagnosis Comments PROCEDURE - RESULT 06/13/2017 12 :00 AM CITY PLANT SUPERVISOR documented in this encounter Results * PROCEDURE - RESULT (06/13/2017 12:00 AM CITY PLANT SUPERVISOR) Narrative 06/13/2017 12:00 AM CITY PLANT SUPERVISOR Ordered by an unspecified provider. us Historical Provider Final Res ult documented in this encounter Visit Diagnoses Not on filedocumented in this encounter Additional Health Concerns Infection Onset Date Last Indicated Resolved Time COVID: Suspected 10/19/2021 10/19/2021 10/19/2021 5:51 PM CDT Influenza, adult 10/19/2021 10/19/2021 10/26/2021 3:05 AM CDT documented as of this encounter Care Teams Fruit Rancher Relationship Specialty Start Date End Date Floresita Samaniego MD [address] [place] [address] PCP - General 04/07/14 Simi Uriarte, NICOLE [address] [place] [address] [address] [place] [address] Managed Care Provider 04/10/18 04/10/18 Nathan Waldron MD [address] [facility] [address] [place] [address] Consulting Physician Obstetrics and Gynecology 02/12/19 10/23/22 Flavio Sesay MD [address] [facility] [address] [place] [address] Referring Physician Gastroenterology 02/12/19 05/12/24 Saulo Narayan CHAO [address] [facility] [place] [address] Optometry 08/08/19 Darci Connolly DPM [address] [place] [address] Referring Physician Podiatry 06/16/20 Jamie Gamboa MD [address] [place] [address] Consulting Physician Radiation Oncology 06/08/22 Francisco Candelario MD PhD [address] [place] [address] Medical Oncologist/Hematologi st Hematology and Oncology 06/08/22 07/25/22 Laith Ortiz MD [address] [address] Consulting Physician Surgical Oncology 06/27/22 Jamie Gamboa MD [address] [place] [address] Consulting Physician Radiation Oncology 06/27/22 Francisco Gtz MD [address] [place] [address] Referring Physician Hematology 07/22/22 Laith Ortiz MD [address] [address] Consulting Physician Surgical Oncology 05/03/23 4 documented as of this encounter
--- OUTSIDE RECORDS SUMMARY | 2025-04-15 15:18 | XMS_ITS | Clinical Summary ---
Author Organization [facility] Address [address] [facility] [address] Care Team Providers Care Training Coordinator Name Role Phone Unavailable Primary Care Provider [...] EVERY DAY 90 Tablet 3 5 Active potassium CHLORIDE (K-DUR,KLOR-CON M20) 20 mEq Extended Release tablet Take 20 mEq by mouth daily. Active Vitamin B17-Yrmvb Acid 0.5-1 mg Tablet Take 1 Tablet by mouth daily in the morning. Active iron bisgly,ps-FA-B- C#12-succ 65 mg-65 mg -1,000 mcg (24) Tablet Take 65 mg by mouth daily. Active magnesium OXIDE 250 mg magnesium Tablet Take 250 mg by mouth daily. 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 Gender Identity Not on file Sexual Orientation Not on file Last Filed Vital Signs Vital Sign Reading Time Taken Comments Blood Pressure 133/72 10/17/2024 1:00 PM CDT Pulse 74 10/17/2024 1:00 PM CDT Temperature 36.1 C (97 F) 10/17/2024 1:00 PM CDT Respiratory Rate 15 10/17/2024 1:00 PM CDT Oxygen Saturation 96% 10/17/2024 1:00 PM CDT Inhaled Oxygen Concentration - - Weight 74.7 kg (164 lb 9.6 oz) 10/17/2024 1:00 P M CDT Height 162.6 cm (5' 4) 08/22/2022 1:13 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 Body Mass Index 28.25 08/22/2022 1:13 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 Plan of Treatment Upcoming Encounters Date Type Department Care Team (Late st Contact Info) Description 04/21/2025 1:00 PM CDT Office Visit [facility] Oncology and Hematology - [place] [address] [facility] [address] [place] [address] Francisco Gtz MD [address] [facility] [address] [place] [address] Health Maintenance Due Date Last Done Comments DIABETES ANNUAL RETINAL EXAM 1963 DIABETES MICROALBUMIN ANNUAL SCREEN 1963 LDL CHOLESTEROL ANNUAL 1963 DTAP/TDAP/TD VACCINES (1 - Tdap) 1964 ZOSTER VACCINE (1 of 2) 01/17/2011 11/22/2010 RSV VACCINE (60+ or ) (1 - 1-dose 75+ series) 2020 COVID-19 Vaccine (3 - Pfizer risk series) 10/30/2020 10/02/2020, 09/11/2020 [place]) Preventative Visit/Annual Wellness Visit 07/10/2024 INFLUENZA VACCINE (#1) 2025 4, 05/03/2023, 06/29/2022, Additional history exists DIABETES HBA1C Q 6 MONTHS 03/04/20252024, 05/02/2024, 02/06/2024, Additional history exists DIABETES ANNUAL FOOT EXAM 05/13/2025 05/13/2024 OSTEOPOROSIS SCREENING 10/25/2028 4, 10/26/2023, 02/11/2020, Additional history exists PNEUMOCOCCAL VACCINE 50+ YEARS Completed 0 03/02/2020, 02/07/2015, 10/07/2010 COLORECTAL SCREENING Discontinued 11/19/2020 Colorectal Cancer Screening Discontinued FIT-DNA Q 3 years Discontinued FIT/FOBT Q 1 year Discontinued Flex Sig/CT Colonography Q [address] [place] [address] [place] [address] [facility] Address: [address] [address]
--- OUTSIDE RECORDS SUMMARY | 2025-04-15 15:18 | XMS_ITS | Encounter Summary ---
Author Organization [facility] Address [address] [place] [address] Care Team Providers Care Office Manager Name Role Phone Floresita Samaniego MD Primary Care Provider + [phone] Saulo Narayan OD Unavailable + [phone] Darci Connolly DPM Unavailable [phone] Laith Ortiz MD Unavailable [phone] Francisco Gtz MD Unavailable [phone] Encounter Details Date Type Department Care Team (Latest Contact Info) Description 02/27/2025 Results Follow-Up [facility] Primary Care [address] [place] [phone] Floresita Samaniego MD [address] [place] [phone] Comprehensive metabolic panel, Hemoglobin A1c, Urinalysis reflex to microscopic and culture Urine, clean voided, Additional followed-up results: 2 Social History Tobacco Use Types Packs/Day Years Used Date Smoking Tobacco: Never Smokeless Tobacco: Never Alcohol Use Standard Drinks/Week Comments Yes 0 (1 standard drink = 0.6 oz pur e alcohol) [facility] Utilities Answer Date Recorded In the past 12 months has [facility] electric, gas, oil, or water company threatened [...] How often do you attend chur or cheondoism services? 1 to 4 times per year 02/07/2024 Do you belong to any clubs o r organizations such as scientologist groups, unions, fraternal or athletic groups, or [...] any time in the past 12 m [place], were you homeless or living in a detention (including now)? No 02/07/2024 Personal Safety Answer Date Recorded Have you ever been in or are you currently in a harmful physical or emotional relationship or is someone making you feel afraid or unsafe? Denies 02/06/2024 Comments No Sex and Gender Information Value Date Recorded Sex Assigned at Not on file Legal Sex Female 7:57 PM [employer] Gender Identity Not on file Sexual Orientation Not on file documented as of this encounter Miscellaneous Notes * Result Encounter Note - Floresita Samaniego MD - 02/27/2025 6:46 PM CDT Tests reviewed, has upcoming OV will discuss with the patient at that time. documented in this encounter Plan of Treatment Not on file documented as of this encounter Visit Diagnoses Not on filedocumented in this encounter Care Teams Office Manager Relationship Specialty Start Date End Date Floresita Samaniego MD [address] [place] [phone] PCP - General 04/07/14 Saulo Narayan OD [address] [place] [phone] Optometry 08/08/19 Darci Connolly DPM [address] [place] [address] Referring Physician Podiatry 06/16/20 Laith Ortiz MD [address] [facility] [address] [place] [address] Consulting Physician Surgical Oncology 06/27/22 Francisco Gtz MD [address] [address] Referring Physician Hematology 07/22/22 documented as of this encounter
[2025-04-15 16:19] LABS: Alanine Aminotransferase 15 U/L (6-35); Albumin Level 4.2 g/dL (3.5-5.1); Alkaline Phosphatase 55 U/L (38-126); Anion Gap 11 mmol/L (4-12); Aspartate Amino Transferase 42 U/L (14-36); Bilirubin,Total 0.8 mg/dL (0.2-1.3); Blood Urea Nitrogen 17 mg/dL (7-17); Calcium 10.2 mg/dL (8.4-10.2); Carbon Dioxide 27 mmol/L (22-30); Chloride 102 mmol/L (98-107); Estimated Glomerular Filt Rate 56; Glucose 166 mg/dL (65-110); Potassium 3.7 mmol/L (3.4-5.0); Sodium 140 mmol/L (137-145); Total Protein 6.9 g/dL (6.3-8.2)
== END 2025-04-15 14:23 | disposition home or self-care (01) ==
LOC: ANHLAB 14:23
PROVIDERS: PCP Internal Medicine; Visit Provider Internal Medicine Hematology & Oncology
DX: C50.911 Malignant neoplasm of unspecified site of right female breast (principal); Z17.0 Estrogen receptor positive status [ER+]
CPT/HCPCS: 36415; 80053; 85025; 86300